=== PATIENT | female | born 1960 | race Two or more races ===

== ENCOUNTER 2020-09-12 14:41 | Outpatient (REF) | payer OTHER, SELFPAY | END 2020-09-12 14:42 | disposition home or self-care (01) | LOC: HO.LAB 14:41 | PROVIDERS: PCP Family Medicine; Visit Provider Internal Medicine | DX: Z20.828 Contact with and (suspected) exposure to other viral communicable diseases (principal) | CPT/HCPCS: C9803; U0003 ==

== ENCOUNTER 2021-08-07 13:37 | Emergency (ER) | payer OTHER, SELFPAY ==
--- NOTE | ~2021-08-07 | CT_ITS ---
EXAMINATION: CT LUMBAR SPINE WITHOUT CONTRAST CLINICAL INFORMATION: Acute on chronic back pain. COMPARISON: No relevant prior imaging. TECHNIQUE: [employer] Coder images were obtained. CT imaging of the lumbar spine was performed without contrast. Data was reformatted into multiplanar images at the acquisition workstation. This CT examination was performed using dose optimization techniques as appropriate, variously including the following: *Automated exposure control *Adjustment of mA and/or kV according to patient size (this includes techniques or standardized protocols for targeted exams where dose is matched to indication/reason for exam; i.e. extremities or head) *Use of iterative reconstruction technique DLP; 1042 mGy-cm FINDINGS: Alignment is normal. Vertebral heights are preserved. Intervertebral disc spaces are maintained. Canal patency is not well assessed on this examination due to inherent limitations of CT without intrathecal contrast. There is relatively advanced degenerative arthrosis of the facet joints at L5-S1 and to a lesser degree at L4-L5. Disc osteophyte spurring in conjunction with facet degenerative change at L5-S1 causes at least mild mass effect on the right L5 foraminal nerve root. Limited visualization of the retroperitoneal anatomy reveals a few scattered atheromatous calcification within the abdominal aorta and iliac vessels. Psoas and paraspinal muscle groups are symmetric. CT/CT lumbar spine wo con IMPRESSION: There is relatively advanced degenerative arthrosis of the articular facet joints at L5-S1 which in conjunction with disc osteophyte spurring causes at least mild mass effect on the right L5 foraminal nerve root. Otherwise grossly no evidence of canal or neuroforaminal compromise elsewhere within the lumbar spine. No acute fracture and no spinal subluxation.
--- NOTE | ~2021-08-07 | XR_ITS ---
EXAMINATION: XR KNEE, RIGHT CLINICAL INFORMATION: Worsening right knee pain COMPARISON: None TECHNIQUE: Four views of the right knee. FINDINGS: There is tricompartment osteoarthritis, greatest medial knee joint compartment with secondary genu varus. There are no erosive changes. No definite suprapatellar effusion. There is no destructive process or fracture or dislocation. No destructive process or periostitis. XR/XR knee RT 4V IMPRESSION: Tricompartment osteoarthritis, greatest medial compartment, with secondary genu varus.
[2021-08-07 15:28] VITALS: BP 156/87; PULSE 66; RESP 18; TEMP 36.7; O2SAT 98; BMI 45.7
[2021-08-07] MEDS: Cyclobenzaprine HCl 10 MG TABLET PO (16:45)
[2021-08-07] MEDS: oxyCODONE HCl Immed Release 5 MG TABLET PO (16:45)
--- NOTE | 2021-08-07 16:46 | ED.BACK ---
HPI - Back Pain/Injury General Chief Complaint: Extremity Injury, Lower Stated Complaint: rt leg & back pain Time Seen by Provider: 08/07/21 15:55 Source: patient Mode of arrival: ambulatory Limitations: no limitations History of Present Illness HPI Narrative: 60-year-old female who reports she has a past medical history of chronic back pain that radiates down her left leg for years after she had a fall at work and at that time she developed urinary incontinence and some stool incontinence then had therapy and the stool incontinence resolved although she still has urinary incontinence from that fall years ago presenting to the ED with complaints of acute on chronic back pain over the past few weeks to months where the pain is radiating down her right leg and she usually takes two 500 mg of extra-strength arthritis Tylenol which resolved her pain although over the past few days when she has been taking this medication she is not having any symptomatic relief. Therefore she came here for further evaluation treatment. She reports she knows she has arthritis to the right knee although is unsure if the right knee pain is radiating from the back or if this is from her arthritis. She denies any fevers, chills, dizziness, headaches, neck pain/stiffness, chest pain or shortness of breath, dyspnea on exertion, orthopnea, rashes, saddle anesthesia, bowel retention/incontinence, worsening urinary incontinence, IV drug use, falls, traumas, dysuria, hematuria or any other symptoms complaints or concerns at this time MD elicited complaint: back pain Pertinent past history: prior back pain Onset (ago): month(s) (Worsened past few days) Timing: constant and progressively worsening Severity: severe Pain scale (0-10): 10 Similar Symptoms Previously: Yes Quality: aching Location: lumbar spine Radiation: right leg below the knee Exacerbating factors: movement, supine positioning, sitting upright, walking and lifting Relieving factors: none Context: fall (Her back pain started years ago when she had a work related injury/fall although no recent falls or traumas or injuries that she is aware) Associated symptoms: denies other symptoms Treatments prior to arrival: NSAIDS and acetaminophen Work related injury: No Related Data Previous Rx's Medication Instructions Recorded acetaminophen 500 mg tablet 1,000 mg PO QID PRN #14 tab 08/07/21 (Tylenol Extra Strength) cyclobenzaprine 10 mg tablet 10 mg PO Q8H PRN #14 tab 08/07/21 ibuprofen 800 mg tablet 800 mg PO Q8H PRN #14 tab 08/07/21 oxycodone 5 mg tablet 5 mg PO Q6H PRN #14 tab 08/07/21 prednisone 20 mg tablet 40 mg PO DAILY 5 Days #10 tab 08/07/21 Allergies Allergy/AdvReac Type Severity Reaction Status Date / Time No Known Allergies Allergy Verified 08/07/21 15:33 Review of Systems Review of Systems: Constitutional : No trauma, No Weight loss, No Fever, No Chills, ENT/Mouth : No Hearing loss, No Ear Pain, No Nasal Congestion, No Sinus Pain, No Hoarseness, No sore throat, No Rhinorrhea, No Swallowing Difficulty Cardiovascular : No Chest Pain, No SOB Respiratory : No Cough, No Dyspnea Gastrointestinal : No Nausea, No Vomiting, No Diarrhea, No abdominal Pain, No Hematochezia, No Melena Genitourinary : No Dysuria, No Urinary Frequency, No Hematuria, No Bowel Incontinence/retention, no urinary retention, + chronic urinary incontinence not worse per patient Musculoskeletal : + Back pain, + right knee joint pain, No neck pain, No joint stiffness, No joint swelling Skin : No Skin Lesions, No rash or signs of infection Neuro : No Weakness, No radiation, No Numbness, No Paresthesias, No headache, no loss of bowel or bladder incontinence, no saddle anesthesia, Focal weakness, No radiation Denies history of IV drug usage. Yes all other systems are reviewed and are negative [facility] Past Medical History Attestation statement: The following information was validated with the patient. Social History Social History Advance Directives: No Advance Directives Information Provided: No Physical Exam Vital Signs: Vital Signs: Last Vital Signs Temp 98.0 F 08/07/21 15:28 Pulse 66 08/07/21 15:28 Resp 18 08/07/21 15:28 BP 156/87 H 08/07/21 15:28 Pulse Ox 98 08/07/21 15:28 Body Mass Index 45.7 vital signs have been reviewed as normal and appeared to be correct. Blood pressure hypertensive at 156/87. Heart rate normal. Respiration rate normal. Temperature normal. Oxygen saturation normal. Appearance: Alert. Oriented X3. No acute distress. Head: Normal external exam. Normocephalic. Atraumatic. Eyes: PERRLA. EOMI. Conjunctiva and sclera normal. Eyelids normal. ENT: Pharynx normal. Uvula midline. Moist mucous membranes. Neck: Normal inspection. Neck supple. FROM. No adenopathy. Thyroid Normal. No meningeal signs. No neck mass noted. CVS: Normal heart rate and rhythm. Heart sound normal. No murmurs noted. Pulses normal throughout. Respiratory: No respiratory distress. Painless inspiration. Breath sounds normal. No wheezes/rales/rhonchi noted. Chest nontender. No accessory muscle usage noted or decreased air movement noted. Abdomen: Soft and nontender. Bowel sounds normal in all 4 quadrants. No distention noted. No organomegaly noted. No visible injury noted. Back: No CVA tenderness. Full range of motion noted. No obvious deformities, or edema. Mild para-spinal muscular tenderness from lumbar region to coccyx. Full ROM in back and lower extremities. 5/5 strength hip extension/flexion, abduction, adduction. Mild Lumbar pain with hip flexion against resistance. Straight leg raise test negative on right; Straight leg raise test negative on left; Reflexes normal ankle and knee bilaterally; EHL motor strength normal bilaterally. No rashes/lesion/induration/fluctuance or signs infection noted. Skin: Skin warm and dry. Normal skin color. Normal skin turgor. No rashes/lesions/lacerations noted. Extremities: Patient with tenderness palpation to the right knee diffusely and posteriorly. No obvious ligamentous or tendon injury. No signs of infection or joint effusion. Otherwise all other exhibit normal range of motion and nontender. No lower extremity edema. No calf tenderness is noted. Neuro: Oriented X 3. No motor deficit. No sensory deficit. Reflexes normal. Patient has a normal steady gait. Course Course Course Narrative: 16:30pm - Pt c likely muscular pain, but could be herniated disc. Neuro exam shows no deficits. Not c/w AAA/epidural abscess/dissection.No high risk Hx (Incont, fever, immunosupp, recent surgery/LP, coag, signif trauma, wt loss, puls mass, hx/o Ca, TB, or IVDU) to warrant MRI today. Not c/w Pyelo/UTI/kidney stone/spinal fx. Not cauda equina syndrome. Will obtain an x-ray of the right knee and patient requesting for imaging of the back therefore will obtain a lumbar spine and provide symptomatic treatment then re-evaluate. Reevaluation(s) Reevaluation #1: CT scan of lumbar spine revealed chronic changes no acute processes is not consistent with cauda equina. And patient's exam is not consistent with cauda equina. Right knee x-ray revealed arthritis which is chronic no acute processes. Will DC home with symptomatic treatment instructions return if any new or worsening symptoms to follow up with primary care provider. Patient understands agrees with this plan. Time: 17:47 MDM - Back Pain/Injury Medical Records Attestation: I reviewed the patient's medical records. Imaging Data CT scan of lumbar spine without contrast: Attestation: I personally reviewed and interpreted this imaging study as follows: Radiologist's impression: FINDINGS: Alignment is normal. Vertebral heights are preserved. Intervertebral disc spaces are maintained. Canal patency is not well assessed on this examination due to inherent limitations of CT without intrathecal contrast. There is relatively advanced degenerative arthrosis of the facet joints at L5-S1 and to a lesser degree at L4-L5. Disc osteophyte spurring in conjunction with facet degenerative change at L5-S1 causes at least mild mass effect on the right L5 foraminal nerve root. Limited visualization of the retroperitoneal anatomy reveals a few scattered atheromatous calcification within the abdominal aorta and iliac vessels. Psoas and paraspinal muscle groups are symmetric. CT/CT lumbar spine wo con IMPRESSION: There is relatively advanced degenerative arthrosis of the articular facet joints at L5-S1 which in conjunction with disc osteophyte spurring causes at least mild mass effect on the right L5 foraminal nerve root. Otherwise grossly no evidence of canal or neuroforaminal compromise elsewhere within the lumbar spine. No acute fracture and no spinal subluxation.? Right knee x-ray: Attestation: I personally reviewed and interpreted this imaging study as follows: Radiologist's impression: FINDINGS: There is tricompartment osteoarthritis, greatest medial knee joint compartment with secondary genu varus. There are no erosive changes. No definite suprapatellar effusion. There is no destructive process or fracture or dislocation. No destructive process or periostitis.? XR/XR knee RT 4V IMPRESSION: Tricompartment osteoarthritis, greatest medial compartment, with secondary genu varus. Discharge Plan Discharge Clinical Impression: Degenerative arthritis of lumbar spine, Osteoarthritis of right knee, Genu varum of right lower extremity Patient Disposition: Home, Self-Care Instructions: Osteoarthritis (ED), Degenerative Disc Disease (ED), Lower Back Exercises (ED) Additional Instructions: You should call [facility] physicians at [address] [place] [address] at [phone] at [phone] and if they require referral please have your doctor refer you return if any new or worsening symptoms. Prescriptions: New cyclobenzaprine 10 mg tablet 10 mg PO Q8H PRN (Reason: Muscle spasm) Qty: 14 RF: 0 ibuprofen 800 mg tablet 800 mg PO Q8H PRN (Reason: pain) Qty: 14 RF: 0 prednisone 20 mg tablet 40 mg PO DAILY 5 Days Qty: 10 RF: 0 acetaminophen [Tylenol Extra Strength] 500 mg tablet 1,000 mg PO QID PRN (Reason: fever or pain) Qty: 14 RF: 0 oxycodone 5 mg tablet 5 mg PO Q6H PRN (Reason: pain) Qty: 14 RF: 0 Referrals: Kalen Gayle MD [Primary Care Provider] - 2 days Edinson Kahn MD [Physician] - 3 days (Call to make a follow-up appointment within 2-3 weeks) Print Language: Khmer
== END 2021-08-07 18:33 | disposition home or self-care (01) ==
PROVIDERS: Emergency Provider Emergency Medicine; PCP Family Medicine
DX: M47.816 Spondylosis without myelopathy or radiculopathy, lumbar region (principal); M17.5 Other unilateral secondary osteoarthritis of knee; M21.161 Varus deformity, not elsewhere classified, right knee; M54.50 Low back pain, unspecified; Z79.899 Other long term (current) drug therapy
CPT/HCPCS: 72131; 73564; 99284

== ENCOUNTER 2021-08-27 12:24 | Outpatient (REF) | payer OTHER, SELFPAY ==
--- NOTE | ~2021-08-27 | XR_ITS ---
EXAMINATION: XR KNEE AP STANDING CLINICAL INFORMATION: Pain COMPARISON: Right knee x-ray July 2021 TECHNIQUE: AP bilateral standing view of the knees was obtained. FINDINGS: There is bilateral varus angulation and arthritis the medial femoral tibial joints with joint space narrowing and osteophyte formation. XR/XR knee standing BI IMPRESSION: Bilateral there is angulation and medial femoral tibial joint arthritis.
== END 2021-08-27 12:25 | disposition home or self-care (01) ==
LOC: HO.HOSX 12:24
PROVIDERS: Visit Provider Orthopaedic Surgery
DX: M17.0 Bilateral primary osteoarthritis of knee (principal); M54.30 Sciatica, unspecified side
CPT/HCPCS: 73565; 99202

== ENCOUNTER → 2022-03-11 08:33 | Outpatient (BNVA) | payer OTHER, SELFPAY | PROVIDERS: PCP Family Medicine; Visit Provider Physician Assistant | DX: M17.0 Bilateral primary osteoarthritis of knee (principal) | CPT/HCPCS: 99212 ==

== ENCOUNTER 2023-09-19 14:11 | Outpatient (AMB) | payer OTHER, SELFPAY ==
--- NOTE | 2023-09-19 14:14 | A.OFFVIS_ITS ---
Intake Vital Signs 09/19/23 14:33 Height 5 ft 1 in Weight 192 lb BMI 36.3 Intake Visit Reasons: OV-B/L knee pain-follow up Intake Note: Xemix 61 year old female presents today for a follow up of bilateral knee OA. Patient reports ongoing pain, she was sent to bariatrics to help loose weight and underwent a gastric bypass in January of this year. States her right kne pain is located in the posterior aspect and in her left knee pain in lateral aspect of knee. Her pain is worse in the early in the morning, states hears bone on bone. She will have swelling and difficulty with stair use. Find relief with compound cream. Allergies No Known Allergies Allergy (Verified 09/19/23 14:34) HPI OV-B/L knee pain-follow up HPI Details 62-year-old female who [facility]-up of bilateral knee pain. She states she has pain in the posterior aspect of her right knee and lateral aspect of her left knee. Her pain is aggravated at night and in the morning. She also c/o popping of her knee in the morning and swelling. Her pain is worse in the left knee. She also finds difficulty with stair use and she has to hold on to something to prevent knee giving out. She finds relief with compound cream. She was sent to bariatrics to help lose weight and had undergone a gastric bypass surgery in January 2023. [facility] Surgical History Hx of gastric bypass Social History Alcohol intake: never Patient Tobacco Use Status: Never used Tobacco Current occupational status: unemployed Review of Systems Const All systems reviewed & are unremarkable except as noted in HPI and below Physical Exam Vital Signs: BMI result Body Mass Index 36.3 Extrem Other: Bilateral knee: Skin intact, no erythema or joint effusion. Tenderness along the medial and lateral joint line. Full ROM with crepitus. Negative Leslie?s. No ligamentous laxity. NVI. Assessment & Plan Assessment & Plan (1) Bilateral primary osteoarthritis of knee: Code(s): M17.0 - Bilateral primary osteoarthritis of knee Plan She is 8 months s/p gastric bypass surgery and would like to continue with the recovery before proceeding with a TKA. She was fit for a bilateral knee brace today and will proceed with compound cream. She is interested in potentially proceeding with TKA sometime next year therefore, I will have nurse navigate her and begin the process to get this cleared. She is content with this plan and will follow-up accordingly. Patient Instructions: Scribed for Kelvin Decker PA-C, by Antonio Ford medical imaging tech, on 09/19/2023 at 2:45 PM EST. I, Kelvin Decker PA-C, have personally reviewed and agree with the information entered by the scribe. Coding Level of Care Code Est Pt Level 3 (02851) Diagnoses Bilateral primary osteoarthritis of knee M17.0
[2023-09-19 14:33] VITALS: BMI 36.3
== END 2023-09-19 15:03 | disposition home or self-care (01) ==
PROVIDERS: PCP Family Medicine; Visit Provider Physician Assistant
DX: M17.0 Bilateral primary osteoarthritis of knee (principal)
CPT/HCPCS: 99213

== ENCOUNTER → 2023-09-19 14:11 | Outpatient (BNVA) | payer OTHER, SELFPAY | PROVIDERS: PCP Family Medicine; Visit Provider Physician Assistant | DX: M17.0 Bilateral primary osteoarthritis of knee (principal); Z98.84 Bariatric surgery status | CPT/HCPCS: 99212 ==

== ENCOUNTER 2024-02-08 10:15 | Outpatient (REF) | payer OTHER, SELFPAY ==
--- NOTE | ~2024-02-08 | XR_ITS ---
EXAMINATION: XR KNEE, RIGHT CLINICAL INFORMATION: Unilateral primary osteoarthritis. COMPARISON: Right knee radiographs dated 08/07/2021. TECHNIQUE: Lateral and axial views of the right knee are submitted, together with an upright frontal view of the bilateral knees. FINDINGS: There is marked narrowing of the right medial and patellofemoral joint space compartments. The right lateral joint space compartments are well-maintained. There is tricompartment peripheral osteophyte formation. No fracture, dislocation or joint effusion is seen. There is no foreign body. There is marked asymmetric narrowing of the medial joint space compartment of the left knee, with peripheral osteophyte formation. The left lateral joint space compartment is well-maintained. There is a mild to moderate bilateral varus configuration. XR/XR knee RT 3V IMPRESSION: 1. There is marked osteoarthritic change of the medial and patellofemoral joint space compartments of the right knee, and very mild osteoarthritic change is seen of the lateral joint space compartment. 2. There is marked osteoarthritic change of the medial joint space compartment of the left knee, and the lateral joint space compartment is well-maintained. 3. There is a mild to moderate bilateral varus configuration.
== END 2024-02-08 10:16 | disposition home or self-care (01) ==
LOC: HO.HOSX 10:15
PROVIDERS: Visit Provider Physician Assistant
DX: M17.0 Bilateral primary osteoarthritis of knee (principal)
CPT/HCPCS: 73562; 99212

== ENCOUNTER 2024-02-08 12:33 | Outpatient (AMB) | payer OTHER, SELFPAY ==
[2024-02-08 12:40] VITALS: BMI 36.3
--- NOTE | 2024-02-08 12:40 | A.OFFVIS_ITS ---
Vital Signs 02/08/24 12:40 Height 5 ft 1 in Weight 192 lb BMI 36.3 Intake Visit Reasons: OV-B/L knee pain-follow up Intake Note: Tootie a 61 year old female who presents today for a follow up of bilateral knee OA. Patient reports that she receive right of way agent braces and feels they help, however she has weakness in her left knee with removing brace. Her pain radiates up and down her leg and with stair use she feels a pulling sensation. She would like to discuss all details of knee surgery. Allergies No Known Allergies Allergy (Verified 02/08/24 12:57) Medication List - Last Reconciled 02/08/24 by Kelvin Decker PA-C famotidine 40 mg PO DAILY hydroxyzine HCl 25 mg PO TID latanoprost 0.005% drps ophthalmic (eye) lisinopril 10 mg PO DAILY multivitamin with iron-mineral 2 tabs PO DAILY pantoprazole 40 mg PO DAILY sertraline mg PO simethicone mg PO BID ursodiol 300 mg PO BID vitamin A PO HPI HPI OV-B/L knee pain-follow up: Details: 63-year-old female who returns to the office today for a follow-up of bilateral knee pain. She states she has bilateral knee pain which radiates down to her leg. She also experiences a pulling sensation with stair use. She reports she received right of way agent braces which provides her relief however she experiences weakness in her knee with removing the braces. [facility] Surgical History Hx of gastric bypass Social History Alcohol intake: never Patient Tobacco Use Status: Never used Tobacco Current occupational status: unemployed Review of Systems Const All systems reviewed & are unremarkable except as noted in HPI and below Physical Exam Vital Signs: BMI result Body Mass Index 36.3 Extrem Other: Bilateral knee: Skin intact, no erythema or joint effusion. Tenderness along the medial and lateral joint line. Full ROM with crepitus. Negative Leslie?s. No ligamentous laxity. NVI. Results Reviewed Results Reviewed: Xrays were obtained in the office today and personally reviewed by me of bilat knee show end stage oa with varus deformity Assessment & Plan Assessment & Plan (1) Bilateral primary osteoarthritis of knee: Code(s): M17.0 - Bilateral primary osteoarthritis of knee Category: Medical Plan We had a lengthy discussion about the extent of her osteoarthritis and options available which include surgical intervention. She is interested in pursuing Total knee arthroplasty to improve her functional capacity and daily activities. I explained to her the procedure in detail, the hospital stays and details about post op rehab and precautions. She does understand all this and would like to move forward. I did put her in contact with our Nurse Navigator, Rufina, who will set her up with pre op planning and book accordingly. All questions were answered. Orders: Orders XR knee RT 3V Today M17.11 - Unilateral primary osteoarthritis, right knee Patient Instructions: Scribed for Kelvin Decker PA-C, by Antonio Ford medical care manager, on 02/08/2024 at 12:45 PM EST. Kelvin Flood PA-C, have personally reviewed and agree with the information entered by the scribe. Coding Level of Care Code Est Pt Level 3 (84445) Diagnoses Bilateral primary osteoarthritis of knee M17.0
== END 2024-02-08 13:28 | disposition home or self-care (01) ==
PROVIDERS: PCP Family Medicine; Visit Provider Physician Assistant
DX: M17.0 Bilateral primary osteoarthritis of knee (principal)
CPT/HCPCS: 99214

== ENCOUNTER → 2024-07-05 10:08 | Outpatient (BNVA) | payer OTHER, SELFPAY | PROVIDERS: PCP Family Medicine | DX: Z01.818 Encounter for other preprocedural examination (principal) ==

== ENCOUNTER 2024-08-09 08:36 | Outpatient (AMB) | payer OTHER, SELFPAY ==
--- NOTE | 2024-08-09 08:42 | MHC.OFFVIS ---
Vital Signs 08/09/24 09:08 Height 5 ft 1 in Weight 192 lb BMI 36.3 Intake Visit Reasons: L TKA w/NE 08/14/24 Intake Note: Tootie a 63 year old female who presents today for a preoperative visit of left TKA, 08/14/24. Pain management agreement reviewed and signed. Allergies adhesive Adverse Reaction (Severe, Unverified 08/09/24 09:07) Rash/broken skin at site Medication List - Last Reconciled 08/09/24 by Kelvin Decker PA-C famotidine 40 mg PO QPM gabapentin 100 mg PO DAILY PRN hydroxyzine HCl 25 mg PO TID PRN latanoprost 0.005% 1 drp ophthalmic (eye) BEDTIME multivitamin with iron 1 tab PO QAM pantoprazole 40 mg PO QAM sertraline 75 mg PO QAM walker Folding Front wheeled walker HPI Comments Details: Ms Berlin Love presents to the office today for preop visit. She is scheduled for left total knee arthroplasty with Dr. Kahn. She continues to have ongoing pain and difficulty with ambulation in the left knee, which is affecting her quality of life; therefore, she has elected to move forward with surgery. [facility] Medical History (Updated 08/09/24 @ 09:40 by Kelvin Decker PA-C) Type 2 diabetes mellitus Renal cyst Osteoarthritis Depression GERD (gastroesophageal reflux disease) Lumbar radiculopathy Barretts esophagus Surgical History Hx of section Hx of repair of right rotator cuff History of esophagogastroduodenoscopy (EGD) H/O colonoscopy Hx of gastric bypass Social History Are you a primary care center manager to a significant other at home: No Do you presently have visiting nurse or other home services: No Alcohol intake: never Patient Tobacco Use Status: Never used Tobacco Current occupational status: unemployed Review of Systems Const All systems reviewed & are unremarkable except as noted in HPI and below Physical Exam Vital Signs: BMI result Body Mass Index 36.3 Const General: cooperative and no acute distress Orientation/consciousness: patient oriented x3 HEENT Head: Yes normal to inspection, Yes normocephalic and Yes atraumatic Eyes General: appearance normal, both eyes and all related structures Neck Neck: Yes normal visual inspection and Yes no lymphadenopathy Resp Effort & Inspection: normal respiratory effort and able to speak in complete sentences Cardio Rate: regular rate Peripheral pulses: Peripheral pulses 2+ throughout GI Inspection: Yes normal to inspection Palpation (GI): Soft to palpation Skin General skin exam: no rashes or lesions noted Neuro General: patient oriented x3 Extrem Other: Left knee: Skin is intact. She has no wound or abrasion. ROM is 0-95 degrees. Calf supple, nontender. NVI. Psych Appearance: grossly normal Mental Status: mental status grossly normal Results Reviewed Results Reviewed: Xrays were obtained in the office today and personally reviewed by me of the left knee for pre op planning show end stage oa Assessment & Plan Assessment & Plan (1) Osteoarthritis of left knee: Code(s): M17.12 - Unilateral primary osteoarthritis, left knee Category: Medical Qualifiers: Osteoarthritis type: primary Qualified Code(s): M17.12 - Unilateral primary osteoarthritis, left knee Plan: I discussed in detail the procedure and what to expect pre and post operatively. We discussed the risks, benefits and alternatives to the surgery as well as the rehabilitation course. The risks; which include, but are not limited to infection, bleeding, nerve injury, ongoing pain, swelling, and stiffness, perioperative risk of injury to bones and soft tissues, and blood clots. I?ve answered all questions and with their understanding they have consented to move forward with Left total knee arthroplasty with Dr. Kahn Pt order placed Orders: Orders PT Evaluation and Treatment Today Z96.652 - Presence of left artificial knee joint XR knee LT 3V Today M25.562 - Pain in left knee XR knee RT 1V Today M25.561 - Pain in right knee Patient Instructions: Scribed for Kelvin Decker PA-C, by Antonio Ford certified medical technician assistant, on 07/18/2024 at 9:00 AM EST.? I, Kelvin Decker PA-C, have personally reviewed and agree with the information entered by the scribe. Coding Level of Care Code Est Pt Level 3 (06476) Complex EM visit Add On G2211 Diagnoses Primary osteoarthritis of left knee M17.12 Osteoarthritis type: primary
[2024-08-09 09:08] VITALS: BMI 36.3
== END 2024-08-09 09:41 | disposition home or self-care (01) ==
PROVIDERS: PCP Family Medicine; Visit Provider Physician Assistant
DX: M17.12 Unilateral primary osteoarthritis, left knee (principal)
CPT/HCPCS: 99024

== ENCOUNTER 2024-08-09 10:17 | Outpatient (REF) | payer OTHER, SELFPAY | END 2024-08-09 10:18 | disposition home or self-care (01) | LOC: HO.HOSX 10:17 | PROVIDERS: Visit Provider Physician Assistant | DX: M25.562 Pain in left knee (principal); M25.561 Pain in right knee; M17.12 Unilateral primary osteoarthritis, left knee; Z96.652 Presence of left artificial knee joint | CPT/HCPCS: 73560; 73562; 99212 ==

== ENCOUNTER 2024-08-14 09:39 | Inpatient (IN) | payer OTHER, SELFPAY ==
[2024-07-31 12:50] VITALS: BP 133/76; PULSE 53; RESP 20; O2SAT 100; BMI 32.4
--- NOTE | 2024-07-31 13:14 | P.CONAN_ITS ---
Documented by User: Lucinda Morin NP 08/13/24 08:38 HPI - Anesthesia Eval Consult details Narrative: 63yo F for Left Knee Replacement Total, 08/14/24 Severe needle phobia - would like sedation with nerve block and spinal Medically optimized per PCP No recent illness No CP/SOB within limits of knee pain DM2: borderline after gastric bypass, no rx at this time, working on diet GERD: famotadine QPM, ppi QAM PMFSH Active Problems Active Problems: All Active Problems Osteoarthritis of left knee (Acute) Sciatic nerve pain (Acute) BMI 45.0-49.9, adult (Acute) Bilateral primary osteoarthritis of knee (Acute) Past Medical History Medical History (Updated 08/09/24 @ 09:40 by Kelvin Decker PA-C) Type 2 diabetes mellitus Renal cyst Osteoarthritis Depression GERD (gastroesophageal reflux disease) Lumbar radiculopathy Barretts esophagus Family History Family history of problems with anesthesia: No Surgical History Surgical History (Updated 08/14/24 @ 07:48 by Pilar Villeda RN) H/O breast biopsy Hx of section Hx of repair of right rotator cuff History of esophagogastroduodenoscopy (EGD) H/O colonoscopy Hx of gastric bypass History of Problems with Anesthesia: No Social History Social History Are you a primary medicare contact specialist to a significant other at home: No Do you presently have visiting nurse or other home services: No Alcohol intake: never Patient Tobacco Use Status: Never used Tobacco Current occupational status: unemployed Meds Allergies Allergy/AdvReac Type Severity Reaction Status Date / Time adhesive AdvReac Severe Rash/broken Verified 08/14/24 07:44 skin at site Home Medications ?Medication ?Instructions ?Recorded ?Confirmed ?Last Taken ?Type famotidine 40 mg tablet 40 mg PO QPM 09/19/23 08/09/24 08/13/24 History hydroxyzine HCl 25 mg tablet 25 mg PO TID PRN Anxiety 09/19/23 07/31/24 06/14/24 History latanoprost 0.005 % eye drops 1 drp ophthalmic (eye) BEDTIME 09/19/23 08/09/24 08/13/24 History pantoprazole 40 mg tablet,delayed 40 mg PO QAM 09/19/23 08/09/24 08/14/24 History release sertraline 50 mg tablet 75 mg PO QAM 09/19/23 08/09/24 08/14/24 History gabapentin 100 mg capsule 100 mg PO DAILY PRN Pain 07/05/24 07/31/24 06/14/24 History multivitamin with iron 1 tab PO QAM 07/27/24 08/09/24 08/06/24 History Exam Height,Weight and Vital Signs: Height 5 ft 1 in Weight 77.8 kg Last Vital Signs Pulse 53 07/31/24 12:50 Resp 20 07/31/24 12:50 BP 133/76 07/31/24 12:50 Pulse Ox 100 07/31/24 12:50 O2 Del Method Room Air 07/31/24 12:50 Pertinent Lab Results Pertinent Lab Results: CBC and BMP 07/2024 from outside facility WNL Lab Results 07/31/24 07/31/24 Range/Units 13:05 13:50 Nasal Screen MRSA (PCR) NEGATIVE (Negative) Nasal S. aureus Screen POSITIVE A (Negative) Nasal MRSA/S.aureus Interp SEE NOTE Blood Type O Negative Antibody Screen NEGATIVE Narrative Narrative: EKG 07/2024 SB @ 51 Negative precordial T waves Airway Mallampati Class: I TM Dist: >3cm Neck ROM: Limited (after traumatic fall 2016 some soreness, steroid injection) Loose/Missing/Broken Teeth: No (upper permanent bridge) Heart: RRR Lungs: CTAB Assessment and Plan Assessment Anesthesia Assessment: Anesthesia Plan Discussed and PAT Visit Final Anesthetic Review Family History of Problems with Anesthesia: No History of Problems with Anesthesia: No Documented by User: Ludy Kilgore MD 08/14/24 08:35 [facility] Past Medical History Medical History (Updated 08/09/24 @ 09:40 by eKlvin Decker PA-C) Type 2 diabetes mellitus Renal cyst Osteoarthritis Depression GERD (gastroesophageal reflux disease) Lumbar radiculopathy Barretts esophagus Surgical History Surgical History (Updated 08/14/24 @ 07:48 by Pilar Villeda RN) H/O breast biopsy Hx of section Hx of repair of right rotator cuff History of esophagogastroduodenoscopy (EGD) H/O colonoscopy Hx of gastric bypass Social History Social History Are you a primary medicare contact specialist to a significant other at home: No Do you presently have visiting nurse or other home services: No Alcohol intake: never Patient Tobacco Use Status: Never used Tobacco Current occupational status: unemployed Meds Allergies Allergy/AdvReac Type Severity Reaction Status Date / Time adhesive AdvReac Severe Rash/broken Verified 08/14/24 07:44 skin at site Home Medications ?Medication ?Instructions ?Recorded ?Confirmed ?Last Taken ?Type famotidine 40 mg tablet 40 mg PO QPM 09/19/23 08/09/24 08/13/24 History hydroxyzine HCl 25 mg tablet 25 mg PO TID PRN Anxiety 09/19/23 07/31/24 06/14/24 History latanoprost 0.005 % eye drops 1 drp ophthalmic (eye) BEDTIME 09/19/23 08/09/24 08/13/24 History pantoprazole 40 mg tablet,delayed 40 mg PO QAM 09/19/23 08/09/24 08/14/24 History release sertraline 50 mg tablet 75 mg PO QAM 09/19/23 08/09/24 08/14/24 History gabapentin 100 mg capsule 100 mg PO DAILY PRN Pain 07/05/24 07/31/24 06/14/24 History multivitamin with iron 1 tab PO QAM 07/27/24 08/09/24 08/06/24 History Exam Airway Mallampati Class: II (sensitive tooth top right and cap top left) Assessment and Plan Final Anesthetic Review NPO: Yes ASA Class: II Final Preanesthetic Review: No Changes in Pt Med Stat, Meds/Allgs Chart Reviewed and Consent Obtained/Reviewed Patient Risk: Low Procedure Risk: Low Anesthetic Plan Anesthetic Plan: Spinal Disposition: Standard PACU
[2024-07-31 15:17] LABS: MRSA Nasal PCR NEGATIVE (Negative); SA Nasal PCR POSITIVE (Negative)
[2024-08-14] VITALS (11 sets, daily range): BP systolic 91–120; BP diastolic 56–71; PULSE 46–68; RESP 14–18; TEMP 36.1–36.9; O2SAT 94–100
--- NOTE | ~2024-08-14 | XR_ITS ---
EXAMINATION: XR KNEE, LEFT CLINICAL INFORMATION: Left total knee replacement COMPARISON: 08/09/2024 TECHNIQUE: Two views of the left knee. FINDINGS: Left total knee replacement has been performed. Prosthetic components are appropriately positioned with satisfactory alignment. Soft tissue air and surgical skin nesha identified in the immediate postoperative state. XR/XR knee LT 2V IMPRESSION: Status post left total knee replacement. Electronically signed by: Perlita Barger MD 08/14/2024 01:30 PM EDT
[2024-08-14] MEDS: Lactated Ringers 1,000 ML 100 ML IVCONT ×2 (07:49→14:04)
[2024-08-14 08:10] LABS: Hematocrit 41.7 % (37.0-47.0); Hemoglobin 13.6 g/dl (12.0-16.0)
--- NOTE | 2024-08-14 09:24 | MHC.SHP ---
Pre-Procedural Eval Section A - 24 Hr Update-Section A only Date of Service: 08/14/24 The patient is an INPATIENT: No Changes since office visit: No Cold of Flu in the past 2 weeks, No New Medical Problems, No Changes in Medication and No Patient answered all questions The patient has been examined within 24 hours of the surgical procedure. The History & Physical has been completed within 30 days and I have reviewed it.: Yes Section B - Complete if H&P > 30 days Chief Complaint: LT TKA Allergies: Allergies Allergy/AdvReac Type Severity Reaction Status Date / Time adhesive AdvReac Severe Rash/broken Verified 08/14/24 07:44 skin at site Plan I have reviewed the history and physical and performed a pertinent physical examination on my patient. No changes have occurred unless specified. Time Spent With Patient Time: Total time managing care of this patient today ____ minutes.
--- OUTSIDE RECORDS SUMMARY | 2024-08-14 09:41 | XMS_ITS | Continuity of Care Document ---
Author Organization [facility] Address [address] [place] [address]- Care Team Providers Care Power And Recovery Supervisor Name Role Phone Enrique Suh MD, Kalen Primary Care Phys ician Encounter 03/02/22 - 03/09/22 [facility] [address], [address] [place] [address]- Attending Physician: Kalen Gayle MD Admitting Physician: Corrine Sullivan NP Referring Physician: Enrique Suh MD , Kalen Allergies, Adverse Reactions, Alerts No Known Medication Allergies Medications PEG-3350 with Electrolytes (Eqv-NuLYTELY) oral powder for reconstitution See Instructions, as directed, # 1 each, 0 Refills, Maintenance, 02/05/21 13:48:00 EDT, [facility] #[id number], ok to sub for any gallon prep, as directed Start Date: 02/05/21 Status: Ordered Problem List Condition Effective Dates Status Health Status Inform ant Tubular adenoma of colon(Confirmed) 1 02/27/21 Active 1repeat screening colonoscopy in 2023
--- OUTSIDE RECORDS SUMMARY | 2024-08-14 09:41 | XMS_ITS | Continuity of Care Document ---
Author Organization [facility] Address [address] [place] [address]- Care Team Providers Care Purchasing Director Name Role Phone Enrique Suh MD, Kalen Primary Care Phys ician Encounter 09/01/21 - 09/08/21 [facility] [address], [address] [place] [address]- Attending Physician: Kalen Gayle MD Admitting Physician: Enrique Suh MD , Kalen Referring Physician: Kalen Gayle MD Allergies, Adverse Reactions, Alerts No Known Medication Allergies Medications PEG-3350 with Electrolytes (Eqv-NuLYTELY) oral powder for reconstitution See Instructions, as directed, # 1 each, 0 Refills, Maintenance, 02/05/21 13:48:00 EDT, [facility] #[id number], ok to sub for any gallon prep, as directed Start Date: 02/05/21 Status: Ordered Problem List Condition Effective Dates Status Health Status Inform ant Tubular adenoma of colon(Confirmed) 1 02/27/21 Active 1repeat screening colonoscopy in 2023
--- OUTSIDE RECORDS SUMMARY | 2024-08-14 09:41 | XMS_ITS | Continuity of Care Document ---
Author Organization [facility] Address [address] [place] [id number]- Care Team Providers Care Acquisitions Analyst Name Role Phone Enrique Suh MD, Kalen Primary Care Phys ician Encounter [facility] Date(s): 12/21/23 - 01/20/24 [facility] [address] [place] [address] Allergies, Adverse Reactions, Alerts No Known Medication Allergies Medications famotidine 40 mg oral tablet 1 tablet = 40 mg, By Mouth, Daily at bedtime, 0 Refills, Maintenance, 07/18/23 11:35:00 EDT, Partial fill upon patient request if the prescription is for a schedule II opioid drug. Start Date: 07/18/23 Status: Ordered gabapentin 100 mg oral capsule Refills 0, Maintenance, 07/18/23 11:38:00 EDT, Partial fill upon patient request if the prescription is for a schedule II opioid drug. Start Date: 07/18/23 Status: Ordered hydrOXYzine hydrochloride 25 mg oral tablet 0 Refills, Maintenance, 07/18/23 11:35:00 EDT, Partial fill upon patient request if the prescription is for a schedule II opioid drug. Start Date: 07/18/23 Status: Ordered latanoprost 0.005% ophthalmic solution 0 Refills, Maintenance, 07/18/23 11:39:00 EDT, Partial fill upon patient request if the prescription is for a schedule II opioid drug. Start Date: 07/18/23 Status: Ordered lisinopril 5 mg oral tablet 5 mg, 1, tablet, By Mouth, Daily, # 30 tablet, Refills 0, Maintenance, 07/18/23 11:34:00 EDT, Partial fill upon patient request if the prescription is for a schedule II opioid drug. Start Date: 07/18/23 Status: Ordered omeprazole 40 mg oral enteric coated capsule 1 capsule = 40 mg, By Mouth, Daily, # 90 capsule, 2 Refills, Maintenance, 12/21/22 13:57:00 EST, ECC[facility], [id number], Partial fill upon patient request if the prescription is for a schedule II opioid drug., 157.2, cm, 12/21/22 13:22:00 EST,... Start Date: 12/21/22 Status: Ordered pantoprazole 40 mg oral delayed release tablet 1 tablet = 40 mg, By Mouth, 2 times a day, # 60 tablet, 0 Refills, Maintenance, 07/18/23 11:34:00 EDT, CR Tablet Start Date: 07/18/23 Status: Ordered PEG-3350 with Electrolytes (Eqv-NuLYTELY) oral powder for reconstitution See Instructions, as directed, # 1 each, 0 Refills, Maintenance, 02/05/21 13:48:00 EDT, [id number], ok to sub for any gallon prep, as directed Start Date: 02/05/21 Status: Ordered sertraline 50 mg oral tablet 0 Refills, Maintenance, 07/18/23 11:36:00 EDT, Partial fill upon patient request if the prescription is for a schedule II opioid drug. Start Date: 07/18/23 Status: Ordered ursodiol 300 mg oral capsule 300 mg, 1, capsule, By Mouth, 2 times a day, # 60 capsule, Refills 0, Maintenance, 07/18/23 11:37:00 EDT, Partial fill upon patient request if the prescription is for a schedule II opioid drug. Start Date: 07/18/23 Status: Ordered Problem List Condition Confirmation Course Effective Dates Status Health St atus Informant Obese class II Confirmed Active Tubular adenoma of colon 1 Confirmed 02/27/21 Active 1repeat screening colonoscopy in 2023 Social History Social History Type Response Smoking Status Never (less than 100 in lifetime) entered on: 07/18/23 Sex Patient Care team information Care Team Personnel Name: Enrique Suh MD , Kalen Position: S Outreach Member Role: PCP Address: Address: [address] [place] [address]- Care Team Related Persons Name: SKYLAR SEGOVIA
--- OUTSIDE RECORDS SUMMARY | 2024-08-14 09:41 | XMS_ITS | Continuity of Care Document ---
Author Organization [facility] Address [address] [place] [address]- Care Team Providers Care Project Management Professor Name Role Phone Enrique Suh MD, [facility] Primary Care Phys ician [place] [facility] [place]s): 02/05/21 - 03/07/21 [facility] [address] [place], [place] [address] Attending Physician: Jeannie Escobar Admitting Physician: Jeannie Escobar Referring Physician: Admtr, ArJose Guadalupe Allergies, Adverse Reactions, Alerts No Known Medication Allergies Medications PEG-3350 with Electrolytes (Eqv-NuLYTELY) oral powder for reconstitution See Instructions, as directed, # 1 each, 0 Refills, Maintenance, 02/05/21 13:48:00 EDT, [facility] #[id number], ok to sub for any gallon prep, as directed Start Date: 02/05/21 Status: Ordered Problem List Condition Effective Dates Status Health Status Inform ant Tubular adenoma of colon(Confirmed) 1 02/27/21 Active 1repeat screening colonoscopy in 2023
--- OUTSIDE RECORDS SUMMARY | 2024-08-14 09:41 | XMS_ITS | Continuity of Care Document ---
Author Organization [facility] Address [address] [place] [address]- Care Team Providers Care Certified Nursing Assistant Name Role Phone Enrique Suh MD, Kalen Primary Care Phys ician Encounter 03/05/24 - 03/12/24 [facility] [address], [address] [place] [address]- Attending Physician: Kalen Gayle MD Admitting Physician: Kalen Gayle MD Referring Physician: Kalen Gayle MD Allergies, Adverse [...] capsule, 2 Refills, Maintenance, 12/21/22 13:57:00 EST, ECCapsletty, [id number], Partial fill upon patient request if the [...] each, 0 Refills, Maintenance, 02/05/21 13:48:00 EDT, [facility] #[id number], ok to sub for any gallon prep, [...] 02/27/21 Active 1repeat screening colonoscopy in 2023 Results Radiology Reports * Exam Date Time Procedure Performing Provider Status 03/05/24 8:29 AM [facility] Digital Mammo Screening Janelle Saenz; Auth (Verified) Notes: (MM Digital Mammo Screening) Reason For Exam: Z12.31 SCREENING RESULT: MM Digital Mammo Screening PROCEDURE: MM Digital Mammo Screening INDICATION: Screening for breast cancer. No known palpable abnormalities. COMPARISON: Prior mammograms most recently dated 03/03/2023. TECHNIQUE: Full-field digital CC and MLO 3D tomosynthesis images of both breasts were acquired. Computer-aided detection (CAD) was utilized in the interpretation of this study. DENSITY: There are scattered areas of fibroglandular density. FINDINGS: No suspicious masses, suspicious microcalcifications, or areas of architectural distortion are seen in either breast to suggest malignancy. IMPRESSION: No mammographic evidence of malignancy. RECOMMENDATION: Annual mammographic screening BI-RADS: 1 (Negative) Lay letter mailed to patient WSN: [id number] Ordering Physician: Kalen Gayle MD Dictated By: Batsheva Edwards MD Dictated Date/Time: 03/05/24 8:44 am Reviewed By: Batsheva Edwarsd MD Signed By: Batsheva Edwards MD Signed Date/Time: 03/05/24 8:44 am Transcribed By: ALEXA Pepper Cutter Date/Time: 03/05/24 8:34 am Birads: Social History Social History Type Response Smoking Status Never (less than 100 in lifetime) entered on: 07/18/23 Sex Patient Care team information Care Team Personnel Name: Kalen Gayle MD Position: [facility] Outreach Member Role: PCP Address: Address: [address] [place] [id number] Care Team Related Persons Name: SKYLAR SEGOVIA
--- OUTSIDE RECORDS SUMMARY | 2024-08-14 09:41 | XMS_ITS | Continuity of Care Document ---
Author Organization [facility] Address [address] [place] [address]- Care Team Providers Care Blow Torch Burner Name Role Phone Enrique Suh MD, Kalen Primary Care Phys ician Encounter 03/03/23 - 03/10/23 [facility] [address], [address] [place] [address]- Attending Physician: Kalen Gayle MD Admitting Physician: Kalen Gayle MD Referring Physician: Enrique Suh MD , Kalen Allergies, Adverse Reactions, Alerts No Known Medication Allergies Medications omeprazole 40 mg oral enteric coated capsule 1 capsule = 40 mg, By Mouth, Daily, # 90 capsule, 2 Refills, Maintenance, 12/21/22 13:57:00 EST, ECCapsule, [id number], Partial fill upon patient request if the prescription is for a schedule II opioid drug., 157.2, cm, 12/21/22 13:22:00 EST,... Start Date: 12/21/22 Status: Ordered PEG-3350 with Electrolytes (Eqv-NuLYTELY) oral powder for reconstitution See Instructions, as directed, # 1 each, 0 Refills, Maintenance, 02/05/21 13:48:00 EDT, [id number], ok to sub for any gallon prep, as directed Start Date: 02/05/21 Status: Ordered Problem List Condition Confirmation Course Effective Dates Status Health St atus Informant Severe obesity Confirmed Active Tubular adenoma of colon 1 Confirmed 02/27/21 Active 1repeat screening colonoscopy in 2023 Results Radiology Reports * Exam Date Time Procedure Performing Provider Status 03/03/23 11:19 AM MM Digital Mammo Screening Penny Pastor; Auth (Verified) Notes: (MM Digital Mammo Screening) Reason For Exam: routine screening RESULT: MM Digital Mammo Screening PROCEDURE: MM Digital Mammo Screening INDICATION: Screening for breast cancer. No known palpable abnormalities. Patient reports benign left stereotactic core biopsy in 2019. COMPARISON: [facility] 03/02/2022 and [facility] dating back to 11/26/2019. TECHNIQUE: Full-field digital CC and MLO 3D tomosynthesis images of both breasts were acquired. Computer-aided detection (CAD) was utilized in the interpretation of this study. DENSITY: The breast tissue contains scattered areas of fibroglandular density. FINDINGS: No suspicious masses, suspicious microcalcifications, or areas of architectural distortion are seen in either breast to suggest malignancy. Stable benign-appearing asymmetries lateral left breast, anterior third, the more posterior of which was shown on ultrasound to represent a cyst in 2020. IMPRESSION: No mammographic evidence of malignancy. RECOMMENDATION: Annual mammographic screening BI-RADS: 2 (Benign) Lay letter mailed to patient WSN: [id number] Ordering Physician: Enrique Suh MD [facility] Dictated By: Adamaris Shearer MD, I Dictated Date/Time: 03/03/23 12:09 pm Reviewed By: Adamaris Shearer MD, I Signed By: Adamaris Shearer MD, I Signed Date/Time: 03/03/23 12:09 pm Transcribed By: ALEXA Plow And Boring Machine Tender Date/Time: 03/03/23 11:57 am Birads: MG Breast Screening * [facility]SPowerscribe , CIS S: TRANSCRIBE Adamaris Shearer MD I: VERIFY Event Display: Result: Authored Date: [id number] PROCEDURE: MM Digital Mammo Screening INDICATION: Screening for breast cancer. No known palpable abnormalities. Patient reports benign left stereotactic core biopsy in 2019. COMPARISON: [facility] 03/02/2022 and [facility] dating back to 11/26/2019. TECHNIQUE: Full-field digital CC and MLO 3D tomosynthesis images of both breasts were acquired. Computer-aided detection (CAD) was utilized in the interpretation of this study. DENSITY: The breast tissue contains scattered areas of fibroglandular density. FINDINGS: No suspicious masses, suspicious microcalcifications, or areas of architectural distortion are seen in either breast to suggest malignancy. Stable benign-appearing asymmetries lateral left breast, anterior third, the more posterior of which was shown on ultrasound to represent a cyst in 2020. IMPRESSION: No mammographic evidence of malignancy. RECOMMENDATION: Annual mammographic screening BI-RADS: 2 (Benign) Lay letter mailed to patient WSN: [id number] Ordering Physician: Kalen Gayle MD Dictated By: Adamaris Shearer MD, I Dictated Date/Time: 03/03/23 12:09 pm Reviewed By: Adamaris Shearer MD, I Signed By: Adamaris Shearer MD, I Signed Date/Time: 03/03/23 12:09 pm Transcribed By: ALEXA Plow And Boring Machine Tender Date/Time: 03/03/23 11:57 am Birads: Patient Care team information Care Team Personnel Name: Kalen Gayle MD Position: [facility] Outreach Member Role: PCP Address: Address: [address] [place] [id number] Care Team Related Persons Name: SKYLAR SEGOVIA
--- OUTSIDE RECORDS SUMMARY | 2024-08-14 09:41 | XMS_ITS | Continuity of Care Document ---
Author Organization [facility] Address [address] [place] [id number]- Care Team Providers Care Behavioral Sciences Department Chair Name Role Phone Enrique Suh MD, [facility] Primary Care Phys [facility] [place] [facility] [place](s[place] 07/18/23 - 08/17/23 [facility] [address] [place] [id number]- Attending Physician: Jeannie Escobar Admitting Physician: Jeannie Escobar Referring Physician: AdmtrJeannie Allergies, Adverse Reactions, Alerts No Known Medication [...] each, 0 Refills, Maintenance, 02/05/21 13:48:00 EDT, [id number], ok to sub for any gallon prep, [...] Name: Enrique Suh MD , Kalen Position: [facility] Outreach Member Role: PCP Address: Address: [address] [place] [address]- Care Team Related Persons Name: SKYLAR SEGOVIA
--- OUTSIDE RECORDS SUMMARY | 2024-08-14 09:41 | XMS_ITS | Continuity of Care Document ---
Author Organization [facility] ter Address [address] [place] [id number]- Care Team Providers Care Receptionist Name Role Phone Enrique Suh MD, Kalen Primary Care Phys [facility] [place] [facility] [place] 07/12/[address] [address] Discharge Disposition: A-D/C Home Attending Physician: Chai Young MD Admitting Physician: Chai Young MD Referring Physician: Chai Young MD Allergies, Adverse Reactions, Alerts No Known [...] 2 Refills, Maintenance, 12/21/22 13:57:00 EST, [facility]ule, [facility]/pharmacy #[id number], Partial fill upon patient request [...] Date: 07/18/23 Status: Ordered PEG-3350 with Electrolytes (Eqv-GoLYTELY) oral powder for reconstitution See Instructions, 1 glass every 15-30 minutes until finished, # 4,000 mL, 0 Refills, Maintenance, 05/09/24 11:43:00 EDT, [facility] #[id number], Partial fill upon patient request if the prescription is for a schedule II opioid drug., 1 glass ever... Start Date: 05/09/24 Status: Ordered PEG-3350 with Electrolytes (Eqv-NuLYTELY) oral powder for reconstitution See Instructions, as directed, # 1 each, 0 Refills, Maintenance, 02/05/21 13:48:00 EDT, [facility] #[id number], ok to sub for any gallon prep, [...] 02/27/21 Active 1repeat screening colonoscopy in 2023 Vital Signs Most recent to oldest [Reference Range]: 1 2 3 Height 154 cm (07/12/24 6:51 AM) Oxygen Saturation [94-100 %] 100 % (07/12/24 8:11 AM) 100 % (07/12/24 8:07 AM) 100 % (07/12/24 7:56 AM) Pulse Rate [55-90 bpm] 61 bpm (07/12/24 6:51 AM) Blood Pressure [90-138/55-84 mm Hg] 114/75mm Hg (07/12/24 8:11 AM) 116/78mm Hg (07/12/24 8:07 AM) 102/71mm Hg (07/12/24 7:56 AM) Respiratory Rate [16-30 br/min] 16 br/min (07/12/24 8:11 AM) 19 br/min (07/12/24 8:07 AM) 17 br/min (07/12/24 7:56 AM) Temperature [96.8-100.4 DegF] 97.3 DegF (07/12/24 7:56 AM) 97.6 DegF (07/12/24 6:51 AM) Liters per Minute 6 L/min (07/12/24 7:56 AM) Mode of Delivery (Oxygen) Room air (07/12/24 8:11 AM) Room air (07/12/24 8:07 AM) Simple face mask (07/12/24 7:56 AM) Blood pressure sites Arm, left (07/12/24 8:11 AM) Arm, left (07/12/24 8:07 AM) Arm, left (07/12/24 7:56 AM) Temperature Route Temporal (07/12/24 7:56 AM) Temporal (07/12/24 6:51 AM) Dry Weight 77.5 kg (07/12/24 6:51 AM) Social History Social History Type Response Smoking Status Never (less than 100 in lifetime) entered on: 07/18/23 Sex Note * Fanny NUNEZ, Gerard Youngblood: PERFORM Event Display: Discharge/Transfer Note Hospital Authored Date: [id number] Nursing Discharge Note Entered On: 07/12/2024 8:03 EDT Performed On: 07/12/2024 8:03 EDT by Gerard Escobedo RN Nursing Discharge Note 2 Discharge Time : 07/12/2024 8:49 EDT Gerard Escobedo RN - 07/12/2024 9:02 EDT Discharge Level of Care at Discharge : Home/Fci/Foster Care Patient Left Unit Via : Wheelchair Patient Accompanied Off Unit with : Responsible adult DC Instructions Provided & Signed by Pt : Yes Patient Understands D/C Instructions : Yes Patient Instructions Discharge Signed : Yes Did Pt have Specialty Bed or Wound Vac : No Gerard Escobedo RN - 07/12/2024 8:03 EDT * Gerard Escobedo RN: PERFORM Event Display: Patient Education/Instruction Authored Date: [id number] Surgery Adult Discharge Instructions [place] [id number] Name: MELISSA WILCOX : 1960?? Visit: 07/12/2024 06:28?? Current Date: 07/12/2024 08:04 ?? Account: [id number]?? Surgery Discharge Instructions We would like to thank you for allowing us to assist you with your healthcare needs. The following includes patient education materials and information regarding your injury/illness. Our entire staffstrives to provide an excellent experience for our patients and their families. PLEASE ENSURE YOU FOLLOW-UP PER THE INSTRUCTIONS BELOW! ?? YOUR OPINION IS IMPORTANT TO US! Please complete the survey you may receive by mail or email. Your feedback will be used to make improvements to the healthcare experiences of our patients and their families. Surveys are administered by [employer] ?? If further treatment with your primary care physician or another doctor is recommended, it is important for you to keep the appointment. Call your primary care physician or return to the Emergency Department immediately if your condition worsens, fails to improve, or new symptoms develop. If you need to find a doctor, you can call [facility] for a referral at [phone] or toll free at [phone] or log in to [email or web address].. ?? [facility], in keeping with [facility] guidance, no longer requires face masks for staff, patientsor visitors in most situations. Similiar to time spent indoors at other locations, there is the chance that you were exposed to repiratory viruses during your time with us (such as flu or COVID-19). If you develop symptoms concerning for a viral respiratory infection, please seek testing (and treatment if indicated) from your medical provider or home test kit. ?? You can view and manage your care through the patient portal or by using a health care mario of your choosing. [employer] is a website that allows you to securely view your medical information including your hospital discharge summary, office visit summaries, medications and follow-up visits. You can also request appointments, renew medications, and request access to your medical information using a health care mario of your choosing, or just ask a question. You are entitled to know the individuals who participated in your treatment. This information is available within your medical record and will be provided upon your request. You can enroll at [email or web address] or register d uring your next office visit. You have been discharged from [facility], Patient Care Unit: ENDO??. If you have any questions regarding these instructions after you leave, please call us and we will be happy to assist you. [facility] Your Care Team Attending Physician Chai Young MD?? Discharging Providers Chai Young MD Reason for Admission SCREENING, HIGH RISK, HISTORY OF POLYPS Primary Care Provider Kalen Gayle MD? Advance Directive Health Care Proxy on File No Patient refuses to discuss What to do next Instructions From Your Doctor ?? Orders?? Daystay Protocol, ??07/12/24 7:54:00 EDT?? Scheduled Follow-Up Appointments Tuesday 12:30 PM EDT ?? With: Neil Craig Where: [facility] [address] [place] [address]- Status: Pending You Need to Schedule the Following Appointments Follow Up with??Kalen Suh MD When:??In 0 days Where: [address] [place] [address]- Business (1) Discharge Medications MELISSA OBREGON :1960 Visit Date:07/12/2024 Medications: Please continue your medications until treatment is completed or stopped by your provider. You may resume your daily prescription medications. Discuss any questions related to medications with your provider. What How Much When Instructions Next Dose Unchanged Famotidine (famotidine 40 mg oral tablet) 1 tab(s) Oral Daily at Bedtime Unchanged Gabapentin (gabapentin 100 mg oral capsule) Unchanged HydrOXYzine (hydrOXYzine hydrochloride 25 mg oral tablet) Unchanged Latanoprost Ophthalmic (latanoprost 0.005% ophthalmic solution) Unchanged Lisinopril (lisinopril 5 mg oral tablet) 1 tab(s) Oral Daily Unchanged Omeprazole (omeprazole 40 mg oral enteric coated capsule) 1 capsule Oral Daily Unchanged Pantoprazole (pantoprazole 40 mg oral delayed release tablet) 1 tab(s) Oral Twice a day Unchanged PEG Electrolyte Solution (PEG-3350 with Electrolytes (Eqv-GoLYTELY) oral powder for reconstitution) See instructions 1 glass every 15-30 minutes until finished ?? Unchanged PEG Electrolyte Solution (PEG-3350 with Electrolytes (Eqv-NuLYTELY) oral powder for reconstitution) See instructions as directed ?? Unchanged Sertraline (sertraline 50 mg oral tablet) Unchanged Ursodiol (ursodiol 300 mg oral capsule) 1 capsule Oral Twice a day Allergies (NKA means No Known Allergies) No Known Medication Allergies Education Materials Below is the list of Educational Leaflet Providered with your Discharge Instructions. [employer] Patient Education - Surgery Medical Daystay Surgical Overnight Discharge Instructions?? [employer] Patient Education - Hemorrhoids Discharge Instructions?? [employer] Patient Education - Colon Polypectomy Discharge Instructions?? Valuables and Belongings I fully understand and agree that [facility] accepts no responsibility for all my personal property including clothing, toilet articles, radios, jewelry, dentures, hearing aids, rings, money, or any other property that is in my possession or is brought to me after admission. I understand certain valuables may be placed in a hospital safe for a short period of time. I understand that the hospital is not liable for loss or damage due to accident, fire, or other natural occurrence while said property is in the safe. I accept full responsibility for any personal property that I keep with me, and will not hold the hospital responsible in case of loss or disappearance. I acknowledge that i have been encouraged to send valuables and belongings home. ?? Date for Pt to Sign Valuables/Belongings: 07/12/24 06:51:00 ?? Valuables & Belongings ?? Clothes Electronic devices Jewelry Monetary Items Personal devices Miscellaneous Medications (Valuables) Valuables at Bedside Pants, Shirt, Shoes, Undergarments ? Other: backpack ? Valuables Sent Home ? Valuables Sent to Security ? Valuables Sent to Locker ? Other Discharge Information ? Case Management Discharge Plan?? Discharge Plan?? Discharge Level of Care at Discharge: Home/Fci/Foster Care ?? Pulmonary Rehab Status?? Pulmonary Rehab Discharge Status?? Respiratory Rate: 17 br/min ? Common Emergency Awareness Tips IS IT A STROKE? Act FAST and Check for these signs: FACE Does the face look uneven? ARM Does one arm drift down? SPEECH Does their speech sound strange? TIME Call at any sign of stroke ?? Heart Attack Signs Chest discomfort: Most heart attacks involve discomfort in the center of the chest and lasts more than a few minutes, or goes away and comes back. It can feel like uncomfortable pressure, squeezing, fullness or pain. Discomfort in upper body: Symptoms can include pain or discomfort in one or both arms, back, neck, jaw or stomach. Shortness of breath: With or without discomfort. Other signs: Breaking out in a cold sweat, nausea, or lightheaded. Remember, MINUTES DO MATTER. If you experience any of these heart attack warning signs, call to get immediate medical attention! ?? Smoking can increase your chances of developing chronic health problems and can cause harmful effects to other family members in your house. If you smoke, you are strongly encouraged to quit. Please call [facility] at [phone] or [phone] ([phone]) or log in to [email or web address] for referrals to smoking cessation programs. ?? The National Suicide Prevention Hotline is available 09/05 if you or someone you know needs to find a reason to keep living. By calling 3-151-801-Baton (6760) you'll be connected to a skilled, trained counselor at a crisis center in your area. SURGERY DISCHARGE INSTRUCTIONS SIGNATURE PAGE MELISSA OBREGON Location:[facility] Registration Date and Time:07/12/2024 06:28 EDT Primary Care Physician: Enrique Suh MD , Kalen, Attending Physician: Hannah ABRAMS, Chai Angulo, I MELISSA OBREGON, have received the above patient education materials/instructions and have verbalized understanding. If ambulance or transport services are being used I further acknowledge being given a choice of service. ?? If you need to contact me, please call me at this number: . Patient/Compliance Clerk Name: Patient/Compliance Clerk Signature: Relationship to Patient: Witness Name/Signature: Date: * Gerard Escobedo RN: PERFORM, SIGN, VERIFY Event Display: Patient Education Handout Authored Date: * Gerard Escobedo RN: PERFORM Event Display: Patient Education Leaflets Authored Date: Surgery Medical Daystay Surgical Overnight Discharge Instructions ?? 295 Medical Daystay/Surgical Overnight Discharge Instructions ? Since your coordination and judgment may be altered by medication and/or anesthesia, a responsible adult must drive you home from the hospital. ? If you have received medication for pain or sedation while under our care, you should not drive, operate machinery, drink alcohol, or sign any legal documents for 24 hours.?? You should have someone with you at home tonight. ? Remain at home the day of discharge.?? You may be up and about unless otherwise instructed by your physician. ? You may resume your daily prescription medication schedule.?? Any depressant medication should be avoided for 24 hours unless otherwise instructed by your surgeon or anesthesiologist. ? Call your physician for a follow-up appointment.? If you experience unusual or severe pain not relied by your pain medication, excessive bleedingor drainage, persistent nausea and vomiting, excessive swelling or redness, foul odor from incisionsite or fever over 100.6F, you need to call your physician. ? A follow-up phone call by a nurse will be made the day after your procedure.?? If you have stayed with us over night, you will not be receiving a follow-up phone call. ? Nausea and vomiting are a common side effect of prescription pain medication.?? We recommend that pills are not taken on an empty stomach.?? While taking any prescription pain medication you should not drive or drink alcohol. ? * Fanny NUNEZ, Gerard Youngblood: PERFORM Event Display: Patient Education Leaflets Authored Date: [id number] Hemorrhoids Discharge Instructions ?Hemorrhoids Discharge Instructions ??You must carefully read the Consumer Information Use and Disclaimer below in order to understand and correctly use this information?? About this topic Hemorrhoids are swollen veins in the rectum. Your rectum is where stool leaves your body. You may be able to see or feel your hemorrhoids outside of your body, but some hemorrhoids are inside of yourrectum and cannot be seen. Hemorrhoids can cause itching, pain, and bleeding. Being constipated or having hard stools can make your hemorrhoids worse.?? What care is needed at home? Ask your doctor what you need to do when you go home. Make sure??you ask questions if you do not understand what the doctor says. This??way you will know what you need to do. ??? Soak your bottomin a few inches of warm water for 10 to 15 minutes??at a time. You can do this 2 to 3 times each day. Do not add soap,??bubble bath, or anything to the water. ??? Use yris-lof-gveuazo medicines to treat your hemorrhoids. These??include ointments and creams to help with pain and swelling. You can??also use a product like witch bhupendra to help dry out the skin in the area. ??? To help with constipation: ??? Use stool softeners when needed. ??? Eat high-fiber foods. These include whole grains, fruits, and??vegetables. ??? Drink plenty of water and other fluids each day. This helps to??keep your stools soft. ??? Set a regular schedule to try and have a bowel movement. Do??not ignore the urge to go to the bathroom. Don???t hold it in. ??? Give yourself plenty of time to have a bowel movement, but do not linger on the toilet either, by sitting and reading for a long time. ??? Do mild exercise each day like taking a walk. ??? Avoid heavy lifting or straining while the hemorrhoid is healing. ?? What follow-up care is needed? If your problem does not get better, other care may be needed. Your doctor may ask you to make visits to the office to check on your progress. Be sure to keep these visits.?? What drugs may be needed? The doctor may order drugs to: ??? Help with pain and swelling ??? Ease itching ??? Soften stools ?? Will physical activity be limited? Working out can help with digestion. It might help keep you from having hard stools. Ask your doctor about the best kind of exercise for you. ?? What problems could happen? You may have very bad bleeding. ??? Sometimes, treatments do not work. Some hemorrhoids are very??large. You might need surgery for either of these. ?? When do I need to call the doctor? You have a lot of bleeding from your rectum. ??? Your bowel movement looks like tar. ??? You are not able to pass stool because of pain from your??hemorrhoids. ??? Your pain gets worse and is nothelped by joby-dmb-neqrmee??medicines, warm water, or your home care. ??? You have a fever of 100.4??F (38??C) or higher. ?? Teach Back: Helping You Understand The Teach Back Method helps you understand the information we are giving you. After you talk with the staff, tell them in your own words what you learned. This helps to make sure the staff has described each thing clearly. It also helps to explain things that may have been confusing. Before going home, make sure you can do these: ??? I can tell you about my condition. ??? I can tell you what may help ease my pain. ??? I can tell you what I will do if I have blood in my rectum. Where can I learn more?[employer]https://familydoctor.or g/condition/hemorrhoids/National Digestive Disease Information Clearinghousehttps://www.niddk.nih.go v/health-information/digestive-diseases/hemorrhoids/definition-factsLast Reviewed Fiyg7382-68-58Bjpjraob Information Use and Disclaimer:This generalized information is a limited summary of diagnosis,treatment, and/or medication information. It is not meant to be comprehensive and should be used asa tool to help the user understand and/or assess potential diagnostic and treatment options. It does NOT include all information about conditions, treatments, medications, side effects, or risks thatmay apply to a specific patient. It is not intended to be medical advice or a substitute for the medical advice, diagnosis, or treatment of a health care provider based on the health care provider's examination and assessment of a patient???s specific and unique circumstances. Patients must speak with a health care provider for complete information about their health, medical questions, and treatment options, including any risks or benefits regarding use of medications. This information does not endorse any treatments or medications as safe, effective, or approved for treating a specific patient. [employer] and its affiliates disclaim any warranty or liability relating to this information or the use thereof. The use of this information is governed by the Terms of Use, available at??htt ps://www.[employer]cted Data/en/know/twrjwipm-thernidromrub-qekyzCwro Updated 12/09/21? * Fanny NUNEZ, Gerard Youngblood: PERFORM Event Display: Patient Education Leaflets Authored Date: [id number] Colon Polypectomy Discharge Instructions ?? 682 ?? Colon Polypectomy Discharge Instructions ??You must carefully read the Consumer Information Use and Disclaimer below in order to understand and correctly use this information??About this topicThe colon is also called the large intestine. It is a long, hollow tube at the end of your digestive tract. It absorbs water from solid waste and changes it from liquid to a solid bowel movement.??A colon polyp is a growth of extra tissue that is not normally in your colon. Colon polyps do not often cause any signs. Most colon polyps are not cancer, but some polyps may turn into cancer. The doctor takes the polyps out during a procedure called a colonoscopy and sends them to the lab for a check to make sure there is no cancer.??You may have a colon polyp or multiple polyps removed. The doctor will send them to the lab to see what type they are. If a polyp is very large, it may need to be removed by surgery.??What care is needed at home? Ask your doctor what you need to do when you go home. Make sure??you ask questions if you do not understand what the doctor says. ??? Do not drive for 24 hours after a colonoscopy. ??? Take your drugs as ordered by your doctor. ??? Go back to your normaldiet unless your doctor has told you to make? some changes in your diet. ??? Rest ??What follow-up care is needed? Your doctor may ask you to make visits to the office to check on your??progress. Be sure to keep these visits. ??? Your doctor may suggest you get tested regularly. People with colon??polyps need to have a colonoscopy regularly to check for the growth??of new polyps. ??? Some polyps may not be removed, and more surgery may be needed. ??? The results of the polyp testing will be given to you at one of these??visits. ??What drugs may be needed?The doctor may order drugs to: ??? Prevent hard stools ??? Help with pain ??? Reduce your risk of colon polyps or colon cancer ??Will physical activity be limited?You may feel sleepy after the colonoscopy. Try to get some rest.??What can be done to prevent this health problem? Have regular colonoscopies.? Eat foods high in fiber. ??? Eat foods low in fat. ??? Limit your intake of beer, wine, and mixed drinks (alcohol). ??? Ask your doctor or dietitian for a diet that is right for you. Include??calcium in your diet. Good sources of calcium include milk, cheese,??and yogurt. ??When do I need to call the doctor? Signs of infection. These include a fever of 100.4??F (38??C) or higher,??chills, and anal itching or pain. ??? Bleeding from rectum that gets worse? Belly becomes swollen and sore ??? Upset stomach and throwing up continues after you return home ??? Not being able to move your bowels ??? Weight loss without trying ??? Blood in your stool ??Teach Back: Helping You UnderstandThe Teach Back Method helps you understand the information we are giving you. After you talk with the staff, tell them in your own words what you learned. This helps to make sure the staff has described each thing clearly. It also helps to explain things that mayhave been confusing. Before going home, make sure you can do these:? I can tell you about my co ndition. ??? I can tell you what changes I need to make with my diet. ??? I can tell you what I will do if my stomach is swollen, I have belly pain,??or there is blood in my stool. ??Where can I learn more?BetterHealthhttps://www.betterhealth.hermelinda.gov.au/health/ConditionsAndTreatme nts/colonoscopyNHSh ttps://www.nhs.uk/conditions/bowel-polyps/UpToDatehttps://www.[employer].Connected Data/obdulio nts/szcoy-jljqay-cfvsfq-the-basics??Last Reviewed Nlvi2682-12-06Tcskehbq Information Use and Disclaimer:This generalized information is a limited summary of diagnosis, treatment, and/or medication information. It is notmeant to be comprehensive and should be used as a tool to help the user understand and/or assess potential diagnostic and treatment options. It does NOT include all information about conditions, treatments, medications, side effects, or risks that may apply to a specific patient. It is not intendedto be medical advice or a substitute for the medical advice, diagnosis, or treatment of a health care provider based on the health care provider's examination and assessment of a patient???s specificand unique circumstances. Patients must speak with a health care provider for complete information about their health, medical questions, and treatment options, including any risks or benefits regarding use of medications. This information does not endorse any treatments or medications as safe, effective, or approved for treating a specific patient. [employer]. and its affiliates disclaim any warranty or liability relating to this information or the use thereof. The use of this information is governed by the Terms of Use, available at??https://www.[employer].com/en/know/clinical-effectiveness- termsLast Updated 12/09/21? Patient Care team information Care Team Personnel Name: Enrique Suh MD , Kalen Position: [facility] Outreach Member Role: PCP Address: Address: [address] [place] [address] [facility] Care Team Related Persons Name: SKYLAR SEGOVIA
--- OUTSIDE RECORDS SUMMARY | 2024-08-14 09:41 | XMS_ITS | Continuity of Care Document ---
Author Organization [facility] Address [address] [place] [address]- Care Team Providers Care Seasoner Name Role Phone Not on Staff, PCP Primary Care Physician Unavail able Encounter [facility] Date(s): 07/25/20 - 08/24/[address] [address]-
--- OUTSIDE RECORDS SUMMARY | 2024-08-14 09:41 | XMS_ITS | Continuity of Care Document ---
Author Organization [facility] Address [address] [place] [address]- Care Team Providers Care E Commerce Web Developer Name Role Phone Not on Staff, PCP Primary Care Physician Unavail able Encounter [facility] Date(s): 07/25/20 - 08/24/[address] [address]- Attending Physician: Jeannie Escobar Admitting Physician: Jeannie Escobar Referring Physician: Jeannie Escobar
--- OUTSIDE RECORDS SUMMARY | 2024-08-14 09:41 | XMS_ITS | Continuity of Care Document ---
Author Organization [facility] Address [address] [place] [address]- Care Team Providers Care Tailings Man Name Role Phone Enrique Suh MD, Kalen Primary Care Phys ician Encounter [facility] Date(s): 08/23/22 - 09/22/22 [facility] [address] [place] [id number]- Allergies, Adverse Reactions, Alerts No Known Medication Allergies Medications PEG-3350 with Electrolytes (Eqv-NuLYTELY) oral powder for reconstitution See Instructions, as directed, # 1 each, 0 Refills, Maintenance, 02/05/21 13:48:00 EDT, [id number], ok to sub for any gallon prep, as directed Start Date: 02/05/21 Status: Ordered Problem List Condition Confirmation Course Effective Dates Status Health St atus Informant Tubular adenoma of colon 1 Confirmed 02/27/21 Active 1repeat screening colonoscopy in 2023 Patient Care team information Care Team Personnel Name: Kalen Gayle MD Position: [facility] Outreach Member Role: PCP Address: Address: [address] [place] [address]- Care Team Related Persons Name: SKYLAR SEGOVIA
--- NOTE | 2024-08-14 09:43 | PHA.MEDREC ---
Pharmacy Consult ? Medication Reconciliation Pharmacy has reviewed the medication reconciliation.
--- NOTE | 2024-08-14 11:34 | PM.OP ---
Brief Operative Note Date of Service: 08/14/24 Pre-op diagnosis: Left knee OA Post-op diagnosis: same Procedure: Left TKA Implants: [place] Triathlon Cemented 12/18 with 50mm stem/13ps/29a Surgeon: Edinson Kahn MD Anesthesia: GETA and regional Was an Medical Records Manager used for this Procedure?: Yes Medical Records Manager: Kelvin Decker Estimated blood loss (mL): 200 IV fluids (mL): 1,000 Pathology: other Condition: stable Disposition: PACU
[2024-08-14] MEDS: 0.9 % Sodium Chloride Flush 3 ML SYRINGE IVFLUSH (14:04)
--- NOTE | 2024-08-14 15:35 | W.MHC.F2F ---
Service Date Service Date: 08/14/24 Encounter Date of encounter: 08/15/24 Reasons for Services Signs and symptoms assessed: s/p LTKA Pt. is considered homebound due to recent surgery. Unable to drive, poor balance, poor gait mechanics. Reason for physical therapy: home safety and mobility, therapeutic exercises, restore joint function, gait/transfer training and ADL training Homebound: Leaving the home is medically contraindicated at this time without the asist of a device and/or another person due th the listed conditions above and below. Reason homebound: unsteady gait / fall risk, leg weakness, pain with ambulation, poor balance / fall risk and unable to drive Certification: Based on the above findings, I certify that this patient is confined to the home and needs intermittent longterm care, physical therapy and/or speech therapy, or continues to need occupational therapy. The patient is under my care, and I have initiated the establishment of the plan of care. The patient will be followed by a physician who will periodically review the plan of care. Time Spent With Patient Time: Total time managing care of this patient today ____ minutes.
--- NOTE | 2024-08-14 15:35 | PM.DS ---
DS: Providers Provider Date of Service: 08/16/24 Date of admission: 08/14/24 09:39 Primary care physician: Kalen Suh MD Consults: 08/14/24 13:51 Consult to Hospitalist Routine Comment: Consulting Provider: Hospitalist Reason For Exam: Medical management s/p L TKA DS: Summary Hospital Course Hospital Course: The patient underwent a successful left total knee arthroplasty, they were transferred to PACU and then to the floor to recover. During their stay, their vitals were stable, afebrile at 96.9. Labs were unremarkable, H/H 10.6/32.6. POD 1 they were started on Lovenox for DVT ppx, they also received Physical Therapy services twice a day. Prior to discharge, their dressing was clean dry and intact, and the plan was to be discharged home with VNA services. Time Attestation Discharge Coordination Time (in mins): 30 Quality: Safe Use of Opioids Does Pt have an Active Cancer Diagnosis on the Problem List?: No Quality: Stroke Does the patient have a stroke diagnosis?: No Physical Exam Vital Signs: Vital Signs: Last Vital Signs Temp 98.4 F 08/14/24 15:32 Pulse 68 08/14/24 15:32 Resp 16 08/14/24 15:32 BP 112/57 L 08/14/24 15:32 Pulse Ox 98 08/14/24 15:32 O2 Del Method Room Air 08/14/24 15:32 BMI result Body Mass Index 32.4 Const: General: cooperative, healthy appearing and no acute distress Resp: Effort & Inspection: normal respiratory effort and able to speak in complete sentences Cardio: Rate: regular rate Peripheral pulses: Peripheral pulses 2+ throughout GI: Palpation (GI): Soft to palpation Skin: Lesions: no lesions Rashes: no rashes Extrem: Other: left knee dressing is c/d/i. Able to dorsi/plantar flex. Calf is supple and nontender. Sensation intact. Pedal pulse intact. DS: Data Data Completed and Pending Pending studies at discharge: Pending at discharge 08/14/24 10:49 Surgical [PTH] Routine Labs on day of discharge: Laboratory Results - last 24 hr 08/14/24 07:58 Hgb 13.6 Hct 41.7 Discharge Plan Discharge Anticipated Discharge Date/Time: 08/15/24 11:34 Patient Disposition: Xfer SNF Discharge Diagnosis: s/p LTKA Referrals: Kelvin Decker PA-C [Physician Regional Extension Service Specialist] - 08/30/24 9:15 am Discharge Medications: New celecoxib 200 mg Capsule 200 mg PO BID 30 Days Qty: 60 0RF acetaminophen 325 mg Tablet 650 mg PO Q6H PRN (Reason: Pain, Mild (Pain Scale 1-3), fever or headache) 30 Days Qty: 240 0RF docusate sodium 100 mg Capsule 100 mg PO BID 30 Days Qty: 60 0RF oxycodone 5 mg Tablet 5 mg PO Q4H PRN (Reason: Pain, Moderate(Pain Scale 4-6)) 7 Days Qty: 42 0RF Rx Instructions: Partial Fill upon patient request. enoxaparin 40 mg/0.4 mL Syringe 40 mg subcut Q24H 42 Days Qty: 16.8 0RF Continued (DME) walker Misc See Rx Instructions .MEDSUPPLY Qty: 1 0RF Rx Instructions: Folding Front wheeled walker multivitamin with iron Tablet 1 tab PO QAM gabapentin 100 mg capsule 100 mg PO DAILY PRN (Reason: Pain) pantoprazole 40 mg tablet,delayed release (DR/EC) 40 mg PO QAM famotidine 40 mg tablet 40 mg PO QPM sertraline 50 mg tablet 75 mg PO QAM hydroxyzine HCl 25 mg tablet 25 mg PO TID PRN (Reason: Anxiety) latanoprost 0.005 % drops 1 drp ophthalmic (eye) BEDTIME Discharge Orders: Discharge Order (Routine); Ordered 08/16/24 Ordered By: Paulina Pang Diet: Advance to usual diet Activity on Discharge: Use cane or walker Stand Alone Forms: Patient Portal Discharge page Print Language: Macanese Care Plan Goals: restore fxn to left knee Health Concerns: none Plan of Treatment: Physical Therapy for ROM 0-120, quad strength, gait training. Use walker for ambulation Limit stair climbing, No shower, No tub bath, No driving Continue anticoagulant Lovenox x 6 weeks Keep Aquacel dressing clean, dry and intact. Follow up with orthopedics in 2 weeks Assessment: stable for discharge
[2024-08-14] MEDS: ceFAZolin Sodium/Dextrose,Iso 2 GM/50 ML PIGGYBACK IV (16:15)
[2024-08-14] MEDS: Famotidine 20 MG TABLET 40 MG PO (17:46)
[2024-08-14] MEDS: oxyCODONE HCl Immed Release 5 MG TABLET PO (17:50)
--- NOTE | 2024-08-14 20:51 | P.CONHOSP_ITS ---
History of Present Illness Data of Consult Service Date: 08/14/24 Primary Care Provider: Kalen Suh MD [facility] Reason for consult: Medical management Patient is a 63-year-old female with a PMH significant for HTN no longer on antihypertensives, prediabetes, sciatica, osteoarthritis, GERD, and anxiety who was admitted to the hospital under orthopedic services for left TKA. POD0. Hospitalist consult for medical management. Patient reports only slowly began having feeling returned to her lower extremities bilaterally. Reports unable to move her legs though can wiggle her toes. States right leg feels more swollen than, and reports numbness and tingling in lower extremities. Denies saddle anesthesia, but notes has had urinary incontinence and is currently unable to feel the urge to urinate. Patient otherwise denies chest pain or pressure. No shortness a breath or difficulty breathing. No fever, chills, nausea, vomiting, abdominal pain. Patient has been able to tolerate advancement to her diet. Has not yet been out of bed. Review of Systems 2 Review of Systems: Yes all other systems are reviewed and are negative [facility] Medical History Type 2 diabetes mellitus Renal cyst Osteoarthritis Depression GERD (gastroesophageal reflux disease) Lumbar radiculopathy Barretts esophagus Surgical History H/O breast biopsy Hx of section Hx of repair of right rotator cuff History of esophagogastroduodenoscopy (EGD) H/O colonoscopy Hx of gastric bypass Social History (Reviewed 08/09/24 @ 09:08 by Nicole Guerrero [facility]) Household Members: None Housing: Apartment Are you a primary critical care educator to a significant other at home: No Do you presently have visiting nurse or other home services: No Alcohol intake: never Patient Tobacco Use Status: Never used Tobacco Use of substances other than those prescribed or required for medical reasons: No Currently Displaying Signs/Symptoms of Drug Intoxication Withdrawal: No Have you been hit, kicked, punched, or otherwise hurt by someone within the past year? If so, by whom?: No Do you feel safe in your current relationship?: No Current Relationship Is there a partner from a previous relationship who is making you feel unsafe now?: No Are you made to feel afraid or neglected: No Spiritual Healthcare Practices: none Pentecostalism Healthcare Practices: Yarsanism Cultural Healthcare Practices: none Are you DNR?: No Advance Directives: No (unknown-sister is primary contact) Advance Directives Information Provided: Yes (as above noted) Advance Directives on File: No Do you have a plan to hurt others: No Plan Recently lost weight without trying: No Eating poorly because of decreased appetite: No Nutrition Risks: No Nutritional Risk Patient : No FDLMP: n/a : No Poor oral hygiene: No Current occupational status: unemployed Meds Allergies Allergy/AdvReac Type Severity Reaction Status Date / Time adhesive AdvReac Severe Rash/broken Verified 08/14/24 07:44 skin at site Active Medications: Current Medications Acetaminophen (Acetaminophen 325 Mg Tablet) 650 mg PO Q6H PRN PRN Reason: Pain, Mild (Pain Scale 1-3), fever or headache Celecoxib (Celecoxib 200 Mg Capsule) 200 mg PO BID [facility] Docusate Sodium (Docusate Sodium 100 Mg Capsule) 100 mg PO BID [facility] Enoxaparin Sodium (Enoxaparin Sodium 40 Mg/0.4 Ml Syringe) 40 mg SUBCUT Q24H [facility] Famotidine (Famotidine 20 Mg Tablet) 40 mg PO DAILY@1800 [facility] Last Admin: 08/14/24 17:46 Dose: 40 mg Hydromorphone HCl (Hydromorphone Hcl 0.5 Mg/0.5 Ml Syringe) 0.25 mg IVPUSH Q4H PRN; Protocol PRN Reason: Pain, Severe (Pain Scale 7-10) Hydroxyzine HCl (Hydroxyzine Hcl 25 Mg Tablet) 25 mg PO TID PRN PRN Reason: Anxiety Lactated Ringer's (Lr) 1,000 mls @ 100 mls/hr IVCONT .Q10H [facility] Stop: 08/15/24 12:00 Last Admin: 08/14/24 14:04 Dose: 100 mls/hr Latanoprost (Latanoprost 0.005 % Ophth Jennifer 2.5 Ml Drops) 1 drop EYE-BOTH BEDTIME [facility] Naloxone HCl (Naloxone Hcl 0.4 Mg/Ml Vial) 0.04 mg IVPUSH Q5M PRN PRN Reason: Excessive sedation or RR < 8 Omeprazole (Omeprazole 20 Mg Capsule.Dr) 20 mg PO DAILY@0600 [facility] Ondansetron HCl (Ondansetron Hcl 4 Mg/2 Ml Vial) 4 mg IVPUSH Q8H PRN PRN Reason: Nausea and Vomiting Oxycodone HCl (Oxycodone Hcl Immed Release 5 Mg Tablet) 5 mg PO Q4H PRN PRN Reason: Pain, Moderate(Pain Scale 4-6) Last Admin: 08/14/24 17:50 Dose: 5 mg Oxycodone HCl (Oxycodone Hcl Er 10 Mg Tab.Er.12h) 10 mg PO BID [facility] Sertraline HCl (Sertraline Hcl 25 Mg Tablet) 75 mg PO DAILY [facility] Sodium Chloride (0.9 % Sodium Chloride Flush 3 Ml Syringe) 3 ml IVFLUSH QSHIFT [facility] Last Admin: 08/14/24 14:04 Dose: 3 ml Home Medications ?Medication ?Instructions ?Recorded ?Confirmed ?Last Taken ?Type famotidine 40 mg tablet 40 mg PO QPM 09/19/23 08/09/24 08/13/24 History hydroxyzine HCl 25 mg tablet 25 mg PO TID PRN Anxiety 09/19/23 07/31/24 06/14/24 History latanoprost 0.005 % eye drops 1 drp ophthalmic (eye) BEDTIME 09/19/23 08/09/24 08/13/24 History pantoprazole 40 mg tablet,delayed 40 mg PO QAM 09/19/23 08/09/24 08/14/24 History release sertraline 50 mg tablet 75 mg PO QAM 09/19/23 08/09/24 08/14/24 History gabapentin 100 mg capsule 100 mg PO DAILY PRN Pain 07/05/24 07/31/24 06/14/24 History multivitamin with iron 1 tab PO QAM 07/27/24 08/09/24 08/06/24 History Physical Exam 2 Vital Signs and Narrative: Vital Signs: Last Vital Signs Temp 97.1 F 08/14/24 19:00 Pulse 67 08/14/24 19:00 Resp 17 08/14/24 19:00 BP 100/63 08/14/24 19:00 Pulse Ox 94 08/14/24 19:00 O2 Del Method Room Air 08/14/24 19:00 BMI result Body Mass Index 32.4 General: AOx3, no acute distress Resp: CTA bilaterally CVS: S1, S2, RRR GI: +BS, NT, no distention Skin: Warm, dry Neuro: Cranial nerves II-XII grossly intact bilaterally. Motor grossly intact bilaterally Extremities: No edema. Left knee wrapped in clean dressing. Pt can wiggle toes bilaterally, though otherwise unable to lift or move lower extremeties. Psych: Appropriate affect Results Labs 08/14/24 07:58 Imaging Radiologist's Impressions: Impressions Knee X-Ray 08/14/24 12:30 IMPRESSION: Status post left total knee replacement. Electronically signed by: Perlita Barger MD 08/14/2024 01:30 PM EDT RP Assessment and Plan (1) Status post total left knee replacement: Status: Acute Plan Patient is a 63-year-old female with a PMH significant for HTN no longer on antihypertensives, prediabetes, sciatica, osteoarthritis, GERD, and anxiety who was admitted to the hospital under orthopedic services for left TKA. POD0. Hospitalist consult for medical management. Osteoarthritis of left knee S/P left TKA, POD0 Complains of numbness and tingling in bilateral lower extremities, limited ability to move legs Plan as per orthopedics GERD Continue famotidine, PPI Anxiety Continue sertraline, hydroxyazine Sciatica Continue gabapentin p.r.n. Thank you for allowing us to participate in the care of this patient. Signing off at this time. Please re-consult if any acute complaints or issues arise.
[2024-08-14] MEDS: oxyCODONE HCl ER 10 MG TAB.ER.12H PO (21:19)
[2024-08-14] MEDS: Celecoxib 200 MG CAPSULE PO (21:20)
[2024-08-14] MEDS: Docusate Sodium 100 MG CAPSULE PO (21:21)
[2024-08-14] MEDS: Latanoprost 0.005 % Ophth Sol 2.5 ML DROPS 1 DROP EYE-BOTH (21:32)
[2024-08-15] VITALS (13 sets, daily range): BP systolic 80–113; BP diastolic 46–59; PULSE 56–77; RESP 16–20; TEMP 36.1–36.9; O2SAT 96–99
[2024-08-15] MEDS: Lactated Ringers 1,000 ML 100 ML IVCONT ×2 (00:08→14:37)
--- NOTE | 2024-08-15 01:00 | PC.NURSE ---
Pt has yet to void since last straight cath on previous shift, bladder scanned at 0100, for 100ml, Dr. Serrano made aware with re-scan at 0500. BPs taken on R leg due to incorrect readings by machine to bilateral arms, Dr. Serrano made aware.
[2024-08-15] MEDS: oxyCODONE HCl Immed Release 5 MG TABLET PO ×4 (03:33→16:44)
[2024-08-15] MEDS: Omeprazole 20 MG CAPSULE.DR PO (05:45)
--- NOTE | 2024-08-15 06:18 | PC.NURSE ---
bladder scanned at 0500: 201, Dr. Serrano made aware, next bladder scan for 0900. lungs sound clear, no new edema noted, non-pitting to left leg. LR running @100ml/hr.
[2024-08-15 06:26] LABS: MANUAL DIFF FLAG NO
[2024-08-15 06:29] LABS: Basophils Percent Auto 0.2 % (0-2); Eosinophils Percent Auto 0.1 % (0-4); Hematocrit 32.6 % (37.0-47.0); Hemoglobin 10.6 g/dl (12.0-16.0); Imm Gran Abs Auto 0.03 X10*3/uL (0.00-0.03); Imm Gran Pct Auto 0.3 % (0.0-0.4); Lymphocytes Absolute Auto 1.6 X10*3/uL (1.2-4.9); Lymphocytes Percent Auto 17.6 % (20-40); Mean Corpuscular HGB Conc 32.5 g/dl (31.0-35.0); Mean Corpuscular Hemoglobin 28.8 pg (27.0-33.0); Mean Corpuscular Volume 88.6 fL (80.0-98.0); Mean Platelet Volume 10.9 fL (9.4-12.3); Monocytes Absolute Auto 0.9 X10*3/uL (0.1-1.2); Monocytes Percent Auto 9.7 % (2-11); Neutrophils Absolute Auto 6.5 x10*3/uL (2.0-8.3); Neutrophils Percent Auto 72.1 % (45-73); Platelet Count 166 X10*3/uL (160-400); Red Blood Count 3.68 X10*6/uL (4.20-5.50); Red Cell Distribution Width 14.1 % (11.0-16.0)
[2024-08-15 06:43] LABS: Anion Gap 10 (12-20); Blood Urea Nitrogen 13 mg/dL (9-16); Calcium 8.2 mg/dL (8.4-10.2); Carbon Dioxide 26 mmol/L (22-29); Chloride 104 mmol/L (96-108); Creatinine Clr Calc Pharmacy 81.3; Estimated Glomerular Filt Rate > 60; Glucose Fasting 120 mg/dL (60-99); Potassium 4.1 mmol/L (3.3-5.1); Sodium 136 mmol/L (135-145)
[2024-08-15] MEDS: oxyCODONE HCl ER 10 MG TAB.ER.12H PO ×2 (07:10→20:06)
[2024-08-15] MEDS: Celecoxib 200 MG CAPSULE PO ×2 (07:10→20:05)
[2024-08-15] MEDS: Docusate Sodium 100 MG CAPSULE PO ×2 (07:10→20:06)
[2024-08-15] MEDS: Sertraline HCL 25 MG TABLET 75 MG PO (07:10)
--- NOTE | 2024-08-15 07:29 | PM.PNORT ---
Subjective Subjective Date of Service: 08/15/24 Interval history: POD1 s/p LTKA Patient is resting in bed comfortably No overnight events Pain is managed No additional complaints Physical Exam Vital Signs: Vital Signs: Last Vital Signs Temp 98.1 F 08/15/24 07:00 Pulse 60 08/15/24 07:00 Resp 16 08/15/24 07:00 BP 96/53 L 08/15/24 07:00 Pulse Ox 99 08/15/24 07:00 O2 Del Method Room Air 08/15/24 07:00 BMI result Body Mass Index 32.4 Const: General: cooperative, healthy appearing and no acute distress Resp: Effort & Inspection: normal respiratory effort and able to speak in complete sentences Cardio: Rate: regular rate Peripheral pulses: Peripheral pulses 2+ throughout GI: Palpation (GI): Soft to palpation Skin: Lesions: no lesions Rashes: no rashes Extrem: Other: left knee dressing is c/d/i. Able to dorsi/plantar flex. Calf is supple and nontender. Sensation intact. Pedal pulse intact. Procedures Date of Service Date of Service: 08/15/24 Progress Note: A&P Assessment and plan (1) Status post total knee replacement, left: Status: Acute Plan Continue pain mgmnt Begin Lovenox for dvt ppx begin PT for LTKA Dispo planning-Pending PT eval, pain mgmnt, likely will need rehab placement Time Spent With Patient Time: Total time managing care of this patient today ____ minutes. Quality Stroke Does the patient have a stroke diagnosis?: No VTE Prior VTE?: No VTE Risk Level:: Medical - moderate - high VTE Device Contraindication: N/A - Device Ordered VTE Drug Contraindication: N/A - Med Ordered
--- NOTE | 2024-08-15 07:35 | W.PM.OPN ---
Operative Note Operative Note Date of Service: 08/14/24 Narrative: Date of Service: 08/14/24 Pre-op diagnosis: Left knee OA Post-op diagnosis: same Procedure: Left TKA Implants: [place] Triathlon Cemented 3/4 with 50mm stem/13ps/29a Surgeon: Edinson Kahn MD Anesthesia: GETA and regional Was an [employer] Patrol used for this Procedure?: Yes [employer]: Kelvin Decker Estimated blood loss (mL): 200 IV fluids (mL): 1,000 Pathology: other Condition: stable Disposition: PACU Procedure in detail: The patient was brought to the operating room and prepped and draped in standard sterile fashion. A time-out was called to identify proper site proper procedure proper surgeon and IV antibiotics were administered. 1 g of IV tranexamic acid was administered. I began by making a midline incision to the retinaculum and performed a medial parapatellar arthrotomy. The patella was translated laterally and the knee was flexed up. There was tricompartmental eburnation and medial tibial bone loss. I performed a small medial peel and resected the infrapatellar fat pad. James's line was then used to drill my intramedullary femoral guide and my distal femur cut of 12mm was made in 5 degrees of valgus while protecting the soft tissues. I then measured a # 3 femur and placed my cutting guide and made my anterior posterior and chamfer cuts in 3 deg ER while protecting the soft tissues at all times. I then made my box but removing the PCL. Once I was satisfied with my cuts I turned my attention to the tibia. I removed the meniscus medially and laterally and , using an external cutting guide, in line with the tibial crest and the third ray, I made my distal tibial cut in 0 deg slope of while protecting the posterior soft tissues at all times. An extension block was used to confirm appropriate amount of bony resection. I then sized a #4 tibia and once I was satisfied that there was complete tibial coverage I placed my trial and with the trial femur in place took the knee through range of motion. I was satisfied with the extension and flexion as well as the balance at 0, 30 and 90 degrees. I then turned my attention to the patella where I removed 1 cm from the undersurface of the patella and then trialed a 29a patellar button. Again the knee was taken through range of motion I was satisfied with the tracking. The bone quality was poor and I elected to place a 50mm tibial stem.I then prepared the tibia with a drill and punch. A femoral bone plug was placed and the knee was irrigated copiously. I then cemented the patella, tibia and femur in standard fashion. Axial compression and a clamp were used while the cement dried. Once the cement was hard on the back table all excess cement was removed and I trialed different inserts until I selected a #13ps insert. The final insert was placed and local TXA was administered. The knee was then closed with a running Quill suture, a 3 0 Vicryl and nesha on the skin. Patient was then placed in sterile dressing and brought to recovery room in stable condition there were no known complications.
--- NOTE | 2024-08-15 08:37 | HO.POSTANES ---
Post Anesthesia Evaluation Post Anesthesia Evaluation Date of Service: 08/14/24 Vital Signs: Vital Signs Temp Pulse Resp BP Pulse Ox O2 Del Method 08/15/24 07:00 98.1 F 60 16 96/53 L 99 Room Air 08/15/24 03:00 96.9 F 56 18 107/58 L 97 Room Air 08/14/24 23:00 97.0 F 53 18 108/56 L 97 Room Air Anesthesia: Spinal Mental Status: Awake Pain Control: Satisfactory Nausea/Vomiting: None Hydration: Adequate Anesthesia-Related Issues: No Anes. Related Issues
[2024-08-15] MEDS: HYDROmorphone HCl 0.5 MG/0.5 ML SYRINGE 0.25 MG IVPUSH ×2 (08:41→23:03)
--- NOTE | 2024-08-15 09:40 | MHC.CM.PN ---
IMM 08/15. Pt self-care, lives alone in an apartment. Pt uses a cane, walker, and has assistive rails in the shower. PT has evaluated pt and are recommending STR, pts first choice is [facility] in [place]. If going to STR, pt will transport via BLS. New HCP completed with pt, now on file. PCP: Dr. Kalen Gonsalves
[2024-08-15] MEDS: Acetaminophen 325 MG TABLET 650 MG PO ×2 (10:33→18:05)
[2024-08-15] MEDS: Enoxaparin Sodium 40 MG/0.4 ML SYRINGE SUBCUT (10:35)
--- NOTE | 2024-08-15 13:19 | PC.NURSE ---
Low BP 82/50 left arm manually,80/46 left arm with BP machine,86/51 right arm with BP machine,patient weak and tired,Dr. Sommers notified,assisted patient back to bed with PT ,patient eating lunch,bolus infusing as ordered
[2024-08-15] MEDS: 0.9 % Sodium Chloride 1,000 ML 999 ML IV (13:28)
[2024-08-15] MEDS: 0.9 % Sodium Chloride Flush 3 ML SYRINGE IVFLUSH (14:37)
--- NOTE | 2024-08-15 14:53 | PC.NURSE ---
BP 101/59 improved after bolus,Dr. Sommers and ISABELA Gallardo notified.
--- NOTE | 2024-08-15 15:41 | PM.EVENT ---
Event Note Date of Service: 08/15/24 Event Note: The patient had an incident of low BP likely due to hypovolemia not due to severe sepsis responded well to IVF bolus To keep on gentle hydration for now Time Spent With Patient Time: Total time managing care of this patient today ____ minutes.
[2024-08-15] MEDS: Famotidine 20 MG TABLET 40 MG PO (16:45)
[2024-08-15] MEDS: Latanoprost 0.005 % Ophth Sol 2.5 ML DROPS 1 DROP EYE-BOTH (20:15)
[2024-08-16] MEDS: Lactated Ringers 1,000 ML 100 ML IVCONT (00:44)
[2024-08-16 03:45] VITALS: BP 132/78; PULSE 62; RESP 16; TEMP 36.7; O2SAT 98
[2024-08-16] MEDS: oxyCODONE HCl Immed Release 5 MG TABLET PO ×2 (04:09→14:23)
[2024-08-16] MEDS: Omeprazole 20 MG CAPSULE.DR PO (06:18)
[2024-08-16 06:23] LABS: Hematocrit 32.4 % (37.0-47.0); PLT CLUMP 1; Red Cell Distribution Width 14.1 % (11.0-16.0)
[2024-08-16 06:25] LABS: Hemoglobin 10.6 g/dl (12.0-16.0); Mean Corpuscular HGB Conc 32.7 g/dl (31.0-35.0); Mean Corpuscular Hemoglobin 28.6 pg (27.0-33.0); Mean Corpuscular Volume 87.6 fL (80.0-98.0); Mean Platelet Volume 11.1 fL (9.4-12.3)
[2024-08-16 06:26] LABS: Platelet Count 128 X10*3/uL (160-400); White Blood Count 6.8 X10*3/uL (4.8-10.8)
[2024-08-16 06:33] LABS: Anion Gap 13 (12-20); Blood Urea Nitrogen 6 mg/dL (9-16); Calcium 8.4 mg/dL (8.4-10.2); Carbon Dioxide 25 mmol/L (22-29); Chloride 103 mmol/L (96-108); Creatinine Clr Calc Pharmacy 95.8; Estimated Glomerular Filt Rate > 60; Glucose Random 109 mg/dL (60-115); Potassium 3.8 mmol/L (3.3-5.1); Sodium 137 mmol/L (135-145)
[2024-08-16 07:32] VITALS: BP 130/71; PULSE 69; RESP 14; TEMP 36.9; O2SAT 97
[2024-08-16 07:40] LABS: Glucose, Whole Blood 103 mg/dL (60-115)
[2024-08-16] MEDS: 0.9 % Sodium Chloride Flush 3 ML SYRINGE IVFLUSH ×2 (08:44→16:42)
[2024-08-16] MEDS: oxyCODONE HCl ER 10 MG TAB.ER.12H PO (08:45)
[2024-08-16] MEDS: Docusate Sodium 100 MG CAPSULE PO (08:46)
[2024-08-16] MEDS: Sertraline HCL 25 MG TABLET 75 MG PO (08:46)
[2024-08-16] MEDS: Celecoxib 200 MG CAPSULE PO (08:46)
--- NOTE | 2024-08-16 08:59 | PM.PNORT ---
Subjective Subjective Date of Service: 08/16/24 Interval history: POD1 s/p POD2 s/p LTKA Patient is resting in bed comfortably No overnight events Pain is managed No additional complaints Physical Exam Vital Signs: Vital Signs: Last Vital Signs Temp 98.5 F 08/16/24 07:32 Pulse 69 08/16/24 07:32 Resp 14 08/16/24 07:32 BP 130/71 08/16/24 07:32 Pulse Ox 97 08/16/24 07:32 O2 Del Method Room Air 08/16/24 07:32 BMI result Body Mass Index 32.4 Const: General: cooperative, healthy appearing and no acute distress Resp: Effort & Inspection: normal respiratory effort and able to speak in complete sentences Cardio: Rate: regular rate Peripheral pulses: Peripheral pulses 2+ throughout GI: Palpation (GI): Soft to palpation Skin: Lesions: no lesions Rashes: no rashes Extrem: Other: left knee dressing is c/d/i. Able to dorsi/plantar flex. Calf is supple and nontender. Sensation intact. Pedal pulse intact. Procedures Date of Service Date of Service: 08/16/24 Progress Note: A&P Assessment and plan (1) Status post total knee replacement, left: Status: Acute Plan Continue pain mgmnt Continue Lovenox for dvt ppx Continue PT for LTKA Dispo planning- PT, pain mgmnt, rehab placement Time Spent With Patient Time: Total time managing care of this patient today ____ minutes. Quality Stroke Does the patient have a stroke diagnosis?: No VTE Prior VTE?: No VTE Risk Level:: Medical - moderate - high VTE Device Contraindication: N/A - Device Ordered VTE Drug Contraindication: N/A - Med Ordered
[2024-08-16] MEDS: HYDROmorphone HCl 0.5 MG/0.5 ML SYRINGE 0.25 MG IVPUSH ×2 (10:10→16:38)
[2024-08-16] MEDS: Enoxaparin Sodium 40 MG/0.4 ML SYRINGE SUBCUT (10:11)
[2024-08-16 10:46] VITALS: BP 130/71; PULSE 69; O2SAT 97
--- NOTE | 2024-08-16 10:52 | MHC.CM.PN ---
DP: PT HAS BEEN MEDICALLY CLEARED FOR DC TO STR AT [facility]. CENTER HAS OBTAINED INSURANCE AUTH. AND BLS TRANSPORT BOOKED FOR 2:30 PM VIA [facility]. [facility] AUTH FOR TRANSPORT OBTAINED. BOOKING ID # [id number]. RN AWARE.
[2024-08-16 11:33] LABS: Glucose, Whole Blood 111 mg/dL (60-115)
[2024-08-16 16:40] LABS: Glucose, Whole Blood 82 mg/dL (60-115)
== END 2024-08-16 16:50 | disposition skilled nursing facility (03) | DRG 470 ==
LOC: HO.SSSA 09:39 → HO.S3 13:16
PROVIDERS: Physician Assistant; Student in an Organized Health Care Education/Training Program; Admitting Provider Orthopaedic Surgery; PCP Family Medicine; Visit Provider Orthopaedic Surgery
PROC: 0SRD0J9 Replacement of Left Knee Joint with Synthetic Substitute, Cemented, Open Approach (ICD-10-PCS; CPT 27447; principal; 2024-08-14 09:30)
DX: M17.12 Unilateral primary osteoarthritis, left knee (principal); E86.1 Hypovolemia; K21.9 Gastro-esophageal reflux disease without esophagitis; E11.9 Type 2 diabetes mellitus without complications; I95.9 Hypotension, unspecified; G89.18 Other acute postprocedural pain; Z79.899 Other long term (current) drug therapy
CPT/HCPCS: 36415; 73560; 80048; 82947; 85014; 85018; 85025; 85027; 86850; 86900; 86901; 87640; 87641; 88304; 88305; 88311; 97110; 97116; 97161; C1713; C1776; J0131; J0665; J0690; J1100; J1171; J1650; J2250; J2405; J2704; J7120

== ENCOUNTER → 2024-08-14 09:39 | Outpatient (BNV) | payer OTHER, SELFPAY | PROVIDERS: Admitting Provider Orthopaedic Surgery; PCP Family Medicine; Visit Provider Student in an Organized Health Care Education/Training Program | DX: K21.9 Gastro-esophageal reflux disease without esophagitis (principal); M54.30 Sciatica, unspecified side; Z96.652 Presence of left artificial knee joint | CPT/HCPCS: 99222; 99499 ==

== ENCOUNTER → 2024-08-14 09:39 | Outpatient (BNV) | payer OTHER, SELFPAY | PROVIDERS: Admitting Provider Orthopaedic Surgery; PCP Family Medicine; Visit Provider Orthopaedic Surgery | DX: Z47.1 Aftercare following joint replacement surgery (principal); Z96.652 Presence of left artificial knee joint | CPT/HCPCS: 27447; 99024 ==

== ENCOUNTER 2024-08-30 09:13 | Outpatient (AMB) | payer OTHER, SELFPAY ==
--- NOTE | 2024-08-30 09:25 | A.OFFVIS_ITS ---
Intake Visit Reasons: 2WK PO: L TKA w/NE 08/14/24 Intake Note: Tootie a 63 year old female who presents today for a post operative visit of LT TKA, DOS 08/14/24 NE. Patient reports returned home on Tuesday from the rehab. She continues to work with at home PT. She continues to have pain with a current pain level 7 out of 10. Her pain radiates up and down her leg. Finds icing helped with ankle swelling. Allergies adhesive Adverse Reaction (Severe, Verified 08/30/24 09:38) Rash/broken skin at site Medication List - Last Reconciled 08/30/24 by Kelvin Decker PA-C acetaminophen 650 mg (2 x 325 mg) PO Q6H PRN 30 days celecoxib 200 mg PO BID 30 days docusate sodium 100 mg PO BID 30 days enoxaparin 40 mg (0.4 mL) subcut Q24H 42 days famotidine 40 mg PO QPM gabapentin 100 mg PO DAILY PRN hydroxyzine HCl 25 mg PO TID PRN latanoprost 0.005% 1 drp ophthalmic (eye) BEDTIME multivitamin with iron 1 tab PO QAM oxycodone 5 mg PO Q4H PRN 7 days pantoprazole 40 mg PO QAM sertraline 75 mg PO QAM walker Folding Front wheeled walker HPI HPI 2WK PO: L TKA w/NE 08/14/24: Details: 63-year-old female who returns to the office today for post-op left TKA, 08/14/[address] Kahn. She reports she returned to home on Tuesday from the rehab. She continues to have pain and numbness in her knee that radiates up and down her leg. She rates the pain as 7 on the scale of 0-10. She has been working on home physical therapy as instructed. She takes oxycodone for her pain. She had ankle swelling relief with icing. [facility] Medical History (Updated 08/17/24 @ 00:01 by Myra Traylor) Type 2 diabetes mellitus Renal cyst Osteoarthritis Depression GERD (gastroesophageal reflux disease) Lumbar radiculopathy Barretts esophagus Surgical History Status post total left knee replacement H/O breast biopsy Hx of section Hx of repair of right rotator cuff History of esophagogastroduodenoscopy (EGD) H/O colonoscopy Hx of gastric bypass Social History Household Members: None Housing: Apartment Are you a primary animal daycare provider to a significant other at home: No Do you presently have visiting nurse or other home services: No Alcohol intake: never Patient Tobacco Use Status: Never used Tobacco service: No Current occupational status: unemployed Review of Systems Const All systems reviewed & are unremarkable except as noted in HPI and below Physical Exam Extrem Other: Left knee: Incision clean, dry and intact. No redness or drainage. ROM 0-90 degrees. Calf supple, nontender. NVI. Assessment & Plan Assessment & Plan (1) Status post total knee replacement, left: Code(s): Z96.652 - Presence of left artificial knee joint Category: Surgical Plan [place] removed, steri strips applied. She will begin to transition to Outpatient PT to continue working on Gait training, ROM and quad strength. She requested attending a clinic that is not affiliated with [facility]; therefore, she was given a print out of her PT order. No driving for another 4 weeks. She will require ppx abx for dental procedures. She will f/u in 4 weeks, sooner if needed. Orders: Orders PT Evaluation and Treatment Today Z96.652 - Presence of left artificial knee joint Medications: Refilled enoxaparin 40 mg (0.4 mL) subcut Q24H 16.8 mL 0RF 42 days celecoxib 200 mg PO BID 60 caps 0RF 30 days Patient Instructions: Scribed for Kelvin Decker PA-C, by Antonio Ford nuclear medical technologist, on 08/30/2024 at 9:15 AM EST.? I, Kelvin Decker PA-C, have personally reviewed and agree with the information entered by the scribe. Coding Level of Care Code Global (62226) Diagnoses Status post total knee replacement, left Z96.652
== END 2024-08-30 10:34 | disposition home or self-care (01) ==
PROVIDERS: PCP Family Medicine; Visit Provider Physician Assistant
DX: Z96.652 Presence of left artificial knee joint (principal)
CPT/HCPCS: 99024

== ENCOUNTER → 2024-08-30 09:13 | Outpatient (BNVA) | payer OTHER, SELFPAY | PROVIDERS: PCP Family Medicine; Visit Provider Physician Assistant | DX: Z96.652 Presence of left artificial knee joint (principal) | CPT/HCPCS: 99212 ==

== ENCOUNTER 2024-09-20 07:49 | Outpatient (AMB) | payer OTHER, SELFPAY ==
--- NOTE | 2024-09-20 08:20 | MHC.OFFVIS ---
Vital Signs 09/20/24 08:21 Height 5 ft 1 in Weight 162 lb 6 oz BMI 30.7 Intake Visit Reasons: PO - L TKA NE 08/14/24 Intake Note: Tootie is a 63 year old female who presents today for a post operative follow up of her left knee s/p Left TKA 08/14/2024. She was given a physical therapy script to take to an outside facility. She is currently doing PT through [facility] at home and next week starts outpatient PT. Patient reports she is having intermittent mild pain in her left knee mostly at night. Her pains are in the anterior and posterior aspect of the knee. She expresses numbness when she palpitates the lateral aspect of the left knee. She finds relief with Tylenol. If her pain bothers her at night she finds relief by taking oxycodone. Allergies adhesive Adverse Reaction (Severe, Verified 08/30/24 09:38) Rash/broken skin at site HPI HPI PO - L TKA NE 08/14/24: Details: Tootie is a 63 year old female who presents today for a post operative follow up of her left knee s/p Left TKA 08/14/2024. She was given a physical therapy script to take to an outside facility. She is currently doing PT through [facility] at home and next week starts outpatient PT. Patient reports she is having intermittent mild pain in her left knee mostly at night. Her pains are in the anterior and posterior aspect of the knee. She expresses numbness when she palpitates the lateral aspect of the left knee. She finds relief with Tylenol. If her pain bothers her at night she finds relief by taking oxycodone. [facility] Medical History (Updated 08/17/24 @ 00:01 by Myra Traylor) Type 2 diabetes mellitus Renal cyst Osteoarthritis Depression GERD (gastroesophageal reflux disease) Lumbar radiculopathy Barretts esophagus Surgical History (Updated 09/18/24 @ 09:51 by Zeny Layton CMA) Status post total left knee replacement (08/07/24) H/O breast biopsy Hx of section Hx of repair of right rotator cuff History of esophagogastroduodenoscopy (EGD) H/O colonoscopy Hx of gastric bypass Social History Household Members: None Housing: Apartment Are you a primary manager primary care to a significant other at home: No Do you presently have visiting nurse or other home services: No Alcohol intake: never Patient Tobacco Use Status: Never used Tobacco service: No Current occupational status: unemployed Physical Exam Vital Signs: BMI result Body Mass Index 30.7 Extrem Other: 0-120 degrees of motion. Stable arc of motion Incision clean dry and intact Assessment & Plan Assessment & Plan (1) Status post total knee replacement, left: Code(s): Z96.652 - Presence of left artificial knee joint Category: Surgical Plan: Patient is doing very well 6 weeks status post left knee replacement. Continue physical therapy and gait training. Follow up in 6 weeks. Coding Level of Care Code Global (60971) Diagnoses Status post total knee replacement, left Z96.652
[2024-09-20 08:21] VITALS: BMI 30.7
== END 2024-09-20 08:42 | disposition home or self-care (01) ==
PROVIDERS: PCP Family Medicine; Visit Provider Orthopaedic Surgery
DX: Z96.652 Presence of left artificial knee joint (principal)
CPT/HCPCS: 99024

== ENCOUNTER → 2024-09-20 07:49 | Outpatient (BNVA) | payer OTHER, SELFPAY | PROVIDERS: PCP Family Medicine; Visit Provider Orthopaedic Surgery | DX: M25.562 Pain in left knee (principal); Z47.1 Aftercare following joint replacement surgery; Z96.652 Presence of left artificial knee joint | CPT/HCPCS: 99212 ==

== ENCOUNTER 2024-11-01 09:23 | Outpatient (AMB) | payer OTHER, SELFPAY ==
--- NOTE | 2024-11-01 09:32 | MHC.OFFVIS ---
Vital Signs 11/01/24 09:56 Height 5 ft 1 in Weight 162 lb BMI 30.6 Intake Visit Reasons: PO - L TKA NE 08/14/24 Intake Note: Tootie is a 64 year old female who presents today for a post operative LT TKA on 08/14/24 NE. X-rays updated. Patient reports for her left knee everything is going as expected, she is limited with bending her knee. She has concerns of right leg pain and no strength in her leg. States symptoms are making it difficult to do her left knee exercises. Her pain is located at the lateral aspect of right leg and travels to her groin and buttocks, Denies injury. Finds very little relief with topical cream ice and heat. Allergies adhesive Adverse Reaction (Severe, Verified 11/01/24 09:55) Rash/broken skin at site Medication List - Last Reconciled 11/01/24 by Kelvin Decker PA-C acetaminophen 650 mg (2 x 325 mg) PO Q6H PRN 30 days famotidine 40 mg PO QPM gabapentin 100 mg PO DAILY PRN hydroxyzine HCl 25 mg PO TID PRN latanoprost 0.005% 1 drp ophthalmic (eye) BEDTIME multivitamin with iron 1 tab PO QAM oxycodone 5 mg PO Q4H PRN 7 days pantoprazole 40 mg PO QAM sertraline 75 mg PO QAM walker Folding Front wheeled walker HPI HPI PO - L TKA NE 08/14/24: Details: 64-year-old female returns to the office today 3 months status post left total knee arthroplasty. She is doing quite well with the left knee. She continues to work with therapy to maintain her range of motion and strength. She states she is struggling with her gait because of the right lower extremity. She states that she has right knee pain but also right hip pain that affects her ability to perform daily activities. She states that she is favoring the left side which is limiting her progression with therapy because she does not want to fall due to her right lower extremity pain. She occasionally ambulates with an assistive device. [facility] Medical History (Updated 11/01/24 @ 10:50 by Kelvin Decker PA-C) Type 2 diabetes mellitus Renal cyst Osteoarthritis Depression GERD (gastroesophageal reflux disease) Lumbar radiculopathy Barretts esophagus Surgical History Status post total left knee replacement (08/07/24) H/O breast biopsy Hx of section Hx of repair of right rotator cuff History of esophagogastroduodenoscopy (EGD) H/O colonoscopy Hx of gastric bypass Social History (Reviewed 09/20/24 @ 08:26 by Kandice Gloria [facility]) Household Members: None Housing: Apartment Are you a primary care program resident to a significant other at home: No Do you presently have visiting nurse or other home services: No Alcohol intake: never Patient Tobacco Use Status: Never used Tobacco service: No Current occupational status: unemployed Review of Systems Const All systems reviewed & are unremarkable except as noted in HPI and below Physical Exam Vital Signs: BMI result Body Mass Index 30.6 Extrem Other: Left knee incision is well healed. No erythema no joint effusion. She has 0-110 degrees of range of motion. Calf supple nontender neurovascularly intact. Right knee varus deformity. Full range of motion with crepitus. No discomfort with range of motion of the hip. Neurovascularly intact. Results Reviewed Results Reviewed: X-rays of the left knee obtained in the office today and reviewed by me show intact prosthesis without signs of loosening. Right knee is severely arthritic with varus deformity. X-rays of the right hip the pain is in the office today and reviewed by me show moderate arthritis Assessment & Plan Assessment & Plan (1) Status post total knee replacement, left: Code(s): Z96.652 - Presence of left artificial knee joint Category: Surgical (2) Osteoarthritis of right knee: Code(s): M17.11 - Unilateral primary osteoarthritis, right knee Category: Medical (3) Osteoarthritis of right hip: Code(s): M16.11 - Unilateral primary osteoarthritis, right hip Category: Medical Plan She will continue to work with physical therapy for the left total knee arthroplasty focusing on range of motion gait mechanics and strengthening. We discussed her right lower extremity given she has severe right knee arthritis with varus deformity. She does have mild to moderate arthritis of the right hip however this does not seem to be affecting her as much as the right knee. She will continue with therapy and over the next several weeks pay attention to how limited she is with progression in therapy and daily activities due to the right knee. When she is ready she will contact us to proceed with right total knee arthroplasty with Dr. Kahn. Otherwise she will follow up in 6 months for her left total knee sooner if needed. Orders: Orders XR hip RT min 2V Today M25.551 - Pain in right hip PT Evaluation and Treatment Today M17.11 - Unilateral primary osteoarthritis, right knee, Z96.652 - Presence of left artificial knee joint XR knee LT 3V Today M25.562 - Pain in left knee XR knee RT 1V Today M25.561 - Pain in right knee Coding Level of Care Code Est Pt Level 4 (68709) Complex EM visit Add On G2211 Diagnoses Status post total knee replacement, left Z96.652 Osteoarthritis of right knee M17.11 Osteoarthritis of right hip M16.11
[2024-11-01 09:56] VITALS: BMI 30.6
== END 2024-11-01 10:51 | disposition home or self-care (01) ==
PROVIDERS: PCP Family Medicine; Visit Provider Physician Assistant
DX: Z47.1 Aftercare following joint replacement surgery (principal); Z96.652 Presence of left artificial knee joint; M17.11 Unilateral primary osteoarthritis, right knee; M16.11 Unilateral primary osteoarthritis, right hip
CPT/HCPCS: 99213; G2211

== ENCOUNTER 2024-11-01 09:50 | Outpatient (REF) | payer OTHER, SELFPAY ==
--- NOTE | ~2024-11-01 | XR_ITS ---
EXAMINATION: XR HIP, RIGHT CLINICAL INFORMATION: M25.551 - Pain in right hip COMPARISON: None available. TECHNIQUE: Two views of the right hip. AP pelvis one view FINDINGS: Pelvis: There is mild loss of bilateral hip joint space slightly greater on the right without bony erosive changes. There is no acute fracture or dislocation. SI joints are normal. There are scattered phleboliths in the pelvis. AP and frog-leg views right hip: There is mild loss of right hip joint space without bony erosive changes. There is mild right lateral acetabular enthesophyte. No loose bodies seen. No acute lytic or sclerotic process. XR/XR hip RT min 2V IMPRESSION: Mild early degenerative arthritic changes right hip: No visible acute fracture or dislocation. Electronically signed by: Dean Osorio MD 11/02/2024 09:41 AM [facility]
--- NOTE | ~2024-11-01 | XR_ITS ---
EXAMINATION: XR KNEE, RIGHT CLINICAL INFORMATION: M25.561 - Pain in right knee COMPARISON: Left knee 08/14/2024. TECHNIQUE: AP bilateral knee standing 1 view. FINDINGS: Single AP view bilateral knees standing reveals total knee prosthesis in satisfactory alignment. There is lucency seen along the medial femoral condyle suspicious for fracture. There is bilateral knee genital varus deformities. There is moderate loss of right knee joint space with periarticular spurring consistent with arthritic changes. XR/XR knee RT 1V IMPRESSION: Moderate degenerative arthritic changes medial compartment right knee. Left knee prosthesis in satisfactory alignment. Suspect medial condyle periprosthetic FRACTURE. It is new since previous exam 08/14/2024. Electronically signed by: Dean Osorio MD 11/02/2024 09:47 AM [facility]
--- NOTE | ~2024-11-01 | XR_ITS ---
EXAMINATION: XR KNEE, LEFT CLINICAL INFORMATION: M25.562 - Pain in left knee COMPARISON: None available. TECHNIQUE: Four views of the left knee. FINDINGS: The total left knee prosthesis with prosthetic components in satisfactory alignment. No periprosthetic fracture hardware malfunction. Mild suprapatellar joint effusion seen. XR/XR knee LT 3V IMPRESSION: Total left knee prosthesis in satisfactory alignment with mild suprapatellar joint effusion. No bony abnormality seen. Electronically signed by: Dean Osorio MD 11/02/2024 09:43 AM EST
== END 2024-11-01 09:51 | disposition home or self-care (01) ==
LOC: HO.HOSX 09:50
PROVIDERS: Visit Provider Physician Assistant
DX: M25.551 Pain in right hip (principal); M25.561 Pain in right knee; M25.562 Pain in left knee; M17.11 Unilateral primary osteoarthritis, right knee; M16.11 Unilateral primary osteoarthritis, right hip; Z96.652 Presence of left artificial knee joint
CPT/HCPCS: 73502; 73560; 73562; 99212

== ENCOUNTER 2025-05-13 09:06 | Outpatient (REF) | payer OTHER, SELFPAY ==
--- NOTE | ~2025-05-13 | XR_ITS ---
EXAMINATION: XR KNEE, LEFT CLINICAL INFORMATION: M25.562 - Pain in left knee COMPARISON: November 01, 2024 TECHNIQUE: AP bilateral standing, sunrise, and lateral views of the left knee. FINDINGS: There is maturation of heterotopic ossification located cephalad to the right medial femoral condyle. Vertical lucency at the junction of the metaphysis and condyle medial to the prosthesis shows interval healing with increasing sclerosis and increased lucency. There is increasing lucency seen mostly anterior to the tibial stem, but no sign of migration of the hardware. 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 XR/XR knee LT 3V IMPRESSION: Interval healing of the medial femoral condyle. 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 There is no evidence of migration of the hardware. Electronically signed by: Luis Miguel Murray MD 05/13/2025 12:44 PM EDT
--- OUTSIDE RECORDS SUMMARY | 2025-05-14 09:31 | XMS_ITS | Encounter Summary ---
Author Organization [employer] [facility] Address [address] [place] [address] Care Team Providers Care Digital Marketing Lead Name Role Phone Unavailable Primary Care Provider Unavailabl e Encounter Details Date Type Department Care Team (Latest Contact Info) Description 06/10/2022 Abstract [facility] CONVERSIONS Dental, Provider, DDS Social History Tobacco [...]
--- OUTSIDE RECORDS SUMMARY | 2025-05-14 09:31 | XMS_ITS | Clinical Summary ---
Author Organization 175 [facility] Address 175 [place] [address] Phone Care Team Providers Care Printed Circuit Layout Taper Name Role Phone Nidhi Osei MD Primary [...] 8:00 AM EDT Telemedicine Bariatric Surgery - [address] [address] Class 1 obesity without serious comorbidity with body mass index (BMI) of 32.0 to 32.9 in adult, unspecified obesity type (Primary Dx) 04/15/2025 Telephone Bariatric Surgery [address] [address] Leeann Higgins MD Medication Reaction (Phetermine 15MG) 04/09/2025 9:00 AM EDT Office Visit Bariatric Surgery [address] [address] Leeann Higgins MD Class 1 [...] 07/11/2025 8:30 AM EDT Nutrition Bariatric Surgery [address] [address] Kesha Orozco, RD [address] [address] 08/20/2025 9:00 AM EST Office Visit Bariatric Surgery [address] [place] [phone] Leeann Higgins MD 175 [facility] [address] [place] [address] Health Maintenance Due Date Last Done Comments [...] LAB CHEMISTRY METHOD 04/09/2025 4:59 PM EDT [facility] TIBC 387 250 - 450 mcg/dL LAB CHEMISTRY METHOD 04/09/2025 4:59 PM EDT [facility] Iron Saturation 25 15 - 50 % LAB CHEMISTRY METHOD 04/09/2025 4:59 PM EDT [facility] Blood Venous blood specimen / Unknown Venipuncture / Unknown 04/09/2025 9:29 AM EDT 04/09/2025 9:29 AM EDT us Leeann Higgins MD LAB BLOOD ORDERABLES Final R esult [facility] [address] [place] [address], * Copper, serum (04/09/2025 9:29 AM EDT) Copper 956 810 - 1990 ug/L 04/15/2025 9:[address] [facility] Comment: Copper values may be elevated to twice the normal levels in . Elevated results may be due to sample collected in a non-certified trace element-free tube. This test was developed and the performance characteristics determined by [facility]. It has not been cleared or approved by the FDA. The laboratory is regulated under CLIA as qualified to perform high-complexity testing. This test is used for patient testing purposes. It should not be regarded as investigational or for research. Test performed at [facility], [address], [place] [address] Verna Quintero MD, PhD - Orange Grower Blood Venous blood specimen / Unknown Venipuncture / Unknown 04/09/2025 9:29 AM EDT 04/09/2025 9:29 AM EDT us Leeann Higgins MD LAB BLOOD ORDERABLES Final R esult Performing Organization Address City/[facility]/ZIP Co de Phone Number [facility] [address] [place] [address] * Zinc (04/09/2025 9:29 AM EDT) Zinc 100 60 - 130 ug/dL 04/12/2025 10:47 AM EDT [facility] Comment: Elevated results may be due to sample collected in a non-certified trace element-free tube. This test was developed and the performance characteristics determined by [facility]. It has not been cleared or approved by the FDA. The laboratory is regulated under CLIA as qualified to perform high-complexity testing. This test is used for patient testing purposes. It should not be regarded as investigational or for research. Test performed at [facility], [address] [place] [address] Verna Quintero MD, PhD - Orange Grower Blood Venous blood specimen / Unknown Venipuncture / Unknown 04/09/2025 9:29 AM EDT 04/09/2025 9:29 AM EDT us Leeann Higgins MD LAB BLOOD ORDERABLES Final R esult Performing Organization Address City/[facility]/ZIP Co de Phone Number [facility] [address] [place] [address] * Vitamin A (04/09/2025 9:29 AM EDT) Vitamin A 45 38 - 106 ug/dL 04/15/2025 7:15 AM EDT [facility] Comment: This test was developed and the performance characteristics determined by [facility]. It has not been cleared or approved by the FDA. The laboratory is regulated under CLIA as qualified to perform high-complexity testing. This test is used for patient testing purposes. It should not be regarded as investigational or for research. Test performed at [facility], [address] , [place] [address] Verna Quintero MD, PhD - Orange Grower Blood Venous blood specimen / Unknown Venipuncture / Unknown 04/09/2025 9:29 AM EDT 04/09/2025 9:29 AM EDT us Leeann Higgins MD LAB BLOOD ORDERABLES Final R esult Performing Organization Address City/[facility]/ZIP Co de Phone Number [facility] [address] [place] [address] * (ABNORMAL) Selenium serum (04/09/2025 9:29 AM EDT) Selenium 261(H) 63 - 160 mcg/L 04/13/2025 8:50 PM EDT [facility] Comment: THIS RESULT HAS BEEN VERIFIED BY REPEAT ANALYSIS. This test was developed and its analytical performance characteristics have been determined by [facility] [place] [place]. It has not been cleared or approved by the U.S. Food and Drug Administration. This assay has been validated pursuant to the CLIA regulations and is used for clinical purposes. Test Performed by [facility], [facility], [address] [place] [address] Sea Daniel M.D., Ph.D., Director of Laboratories , CLIA [id number] Blood Venous blood specimen / Unknown Venipuncture / Unknown 04/09/2025 9:29 AM EDT 04/09/2025 9:29 AM EDT us Leeann Higgins MD LAB BLOOD ORDERABLES Final R esult Performing Organization Address City/[facility]/ZIP Co de Phone Number [facility] [address] [place] [address] * Vitamin D 25 hydroxy (04/09/2025 9:29 AM EDT) [facility] Vit D, 25-Hydroxy 35.0 30.0 - 80.0 ng/mL LAB CHEMISTRY METHOD 04/09/2025 5:12 PM EDT [facility] Blood Venous blood specimen / Unknown Venipuncture / Unknown 04/09/2025 9:29 AM EDT 04/09/2025 9:29 AM EDT Leeann Higgins MD LAB BLOOD ORDERABLES Final R esult [facility] [address] [place] [address], [place] [phone] * Vitamin B1 (04/09/2025 9:29 AM EDT) [facility] Vitamin B1 Whole Blood 79 38 - 122 ug/L 04/15/2025 7:[address] [facility] Comment: This test was developed and the performance characteristics determined by [facility]. It has not been cleared or approved by the FDA. The laboratory is regulated under CLIA as qualified to perform high-complexity testing. This test is used for patient testing purposes. It should not be regarded as investigational or for research. Test performed at [facility], [address], [place] [address] Verna Quintero MD, PhD - Orange Grower Blood Venous blood specimen / Unknown Venipuncture / Unknown 04/09/2025 9:29 AM EDT 04/09/2025 9:29 AM EDT Leeann Higgins MD LAB BLOOD ORDERABLES Final R esult [facility] [address] [place] [address] * (ABNORMAL) Vitamin B6 (04/09/2025 9:29 AM EDT) [facility] Vitamin B6 (Pyridoxine) Level 82(H) 5 - 50 ug/L 04/15/2025 12:18 PM EDT [facility] Comment: This test was developed and the performance characteristics determined by [facility]. It has not been cleared or approved by the FDA. The laboratory is regulated under CLIA as qualified to perform high-complexity testing. This test is used for patient testing purposes. It should not be regarded as investigational or for research. Test performed at [facility], [address] , [place] [address] Verna Quintero MD, PhD - Orange Grower Blood Venous blood specimen / Unknown Venipuncture / Unknown 04/09/2025 9:29 AM EDT 04/09/2025 9:29 AM EDT Leeann Higgins MD LAB BLOOD ORDERABLES Final R esult [facility] [address] [place] [address] * Parathyroid hormone intact (04/09/2025 9:29 AM EDT) [facility] PTH 39.2 18.5 - 88.0 pcg/mL LAB CHEMISTRY METHOD 04/09/2025 5:12 PM EDT [facility] Blood Venous blood specimen / Unknown Venipuncture / Unknown 04/09/2025 9:29 AM EDT 04/09/2025 9:29 AM EDT Leeann Higgins MD LAB BLOOD ORDERABLES Final R esult [facility] [address] [place] [address], [place] [phone] * Hemoglobin A1c (04/09/2025 9:29 AM EDT) [facility] Hemoglobin A1C 6.1 <6.5 % LAB CHEMISTRY METHOD 04/09/2025 8:43 PM EDT [facility] Mean Bld Glu Estim. 128 mg/dL LAB CHEMISTRY METHOD 04/09/2025 8:43 PM EDT [facility] Blood Venous blood specimen / Unknown Venipuncture / Unknown 04/09/2025 9:29 AM EDT 04/09/2025 9:29 AM EDT us Leeann Higgins MD LAB BLOOD ORDERABLES Final R esult Performing Organization Address City/[facility] Co de Phone Number [facility] [address] [place] [address], [place] [phone] * Folate (04/09/2025 9:29 AM EDT) Pathologist [facility] Folate 12.1 2.8 - 17.0 ng/ml LAB CHEMISTRY METHOD 04/09/2025 4:58 PM EDT [facility] Blood Venous blood specimen / Unknown Venipuncture / Unknown 04/09/2025 9:29 AM EDT 04/09/2025 9:29 AM EDT us Leeann Higgins MD LAB BLOOD ORDERABLES Final R esult Performing Organization Address [facility] Co de Phone Number [facility] [address] [place] [address], [place] [phone] * Vitamin B12 (04/09/2025 9:29 AM EDT) Pathologist [facility] Vitamin B-12 652 250 - 900 pcg/mL LAB CHEMISTRY METHOD 04/09/2025 6:44 PM EDT [facility] Blood Venous blood specimen / Unknown Venipuncture / Unknown 04/09/2025 9:29 AM EDT 04/09/2025 9:29 AM EDT us Leeann Higgins MD LAB BLOOD ORDERABLES Final R esult [facility] [address] [place] [address], [place] [phone] * Calcium (04/09/2025 9:29 AM EDT) [facility] Calcium 9.0 8.5 - 10.5 mg/dL LAB CHEMISTRY METHOD 04/09/2025 4:45 PM EDT [facility] Blood Venous blood specimen / Unknown Venipuncture / Unknown 04/09/2025 9:29 AM EDT 04/09/2025 9:29 AM EDT us Leeann Higgins MD LAB BLOOD ORDERABLES Final R esult Performing Organization Address City/[facility]/ZIP Co de Phone Number [facility] [address] [place] [address], [place] [phone] * Albumin (04/09/2025 9:29 AM EDT) [facility] Albumin 3.7 3.2 - 5.0 g/dL LAB CHEMISTRY METHOD 04/09/2025 4:45 PM EDT [facility] Blood Venous blood specimen / Unknown Venipuncture / Unknown 04/09/2025 9:29 AM EDT 04/09/2025 9:29 AM EDT us Leeann Higgins MD LAB BLOOD ORDERABLES Final R esult [facility] [address] [place] [address], [place] [phone] * (ABNORMAL) Lipid panel (05/11/2022) [facility] LDL/HDL Ratio 4 0 - 4 Triglycerides 77 0 - 150 mg/dL Cholesterol 216(A) 0 - 200 mg/dL HDL 57 >=40 mg/dL LDL Cholesterol 144(A) 0 - 100 mg/dL Blood Venous blood specimen / Unknown us Historical Provider LAB BLOOD ORDERABLES Jennifer l Result from Last 3 Months or Most Recently Relevant to Health Maintenance Insurance [facility] MEDICARE Member Subscriber Plan / Payer (Ef fective 2020-Present) Name:Michael Carlson Relation to Subscriber:Self Name:Michael Slade Payer ID:[id number] Group ID:[id number] Type:Not on file Address: [place] [address] [address] [address] Care Teams Printed Circuit Layout Taper Relationship Specialty Start Date End Date Nidhi Osei MD [address] [place] [address] PCP - General Internal Medicine 12/16/21
--- OUTSIDE RECORDS SUMMARY | 2025-05-14 09:31 | XMS_ITS | Encounter Summary ---
Author Organization [facility] Address [address] [facility] [address] [place] [address] Phone Care Team Providers Care Mortgage Originator Name Role Phone Kalen Osei MD Primary Care Prov ider Kalen Osei MD Unavailable + Kalen Osei MD Primary Care Prov ider Reason for Referral * Physical Therapy (Routine) - Closed Specialty Diagnoses / Procedures Referred By Diogenes perez Referred To Contact Physical Therapy Diagnoses Urinary incontinence, unspecified type Kathia Galindo NP Phone: tel: fax: mailto:[email or web address] [address] [place] [address] Phone: tel: Referral ID Status Reason Start Date Expiration Date Visits Re quested Visits Authorized [id number] Closed 07/11/2019 07/11/2020 99 99 Encounter Details Date Type Department Care Team (Late st Contact Info) Description 07/11/2019 Transcribe Orders [facility] [address] [place] [address] Kathia Galindo NP [address] [place] [address] [email or web address] Urinary incontinence, unspecified type (Primary Dx) Social [...] Date/Time Associated Diagnosis Comments AMB REFERRAL TO [facility] PHYSICAL THERAPY Routine 08/09/2019 12:58 PM EDT Urinary incontinence, unspecified type documented in this encounter Results * Ambulatory referral to [facility] Physical Therapy (08/09/2019 12:58 PM EDT) Kathia Galindo NP AMB [facility] REFERRALS Final Result documented in this encounter Visit Diagnoses Diagnosis Urinary incontinence, unspecified type- Primary documented in this encounter Care Teams Mortgage Originator Relationship Specialty Start Date End Date Kalen Osei MD [email or web address] PCP - General Family Medicine 10/18/18 08/14/20 Kalen Osei MD [address] [place] [address] [email or web address] PCP - General Family Medicine 08/15/20 Kalen Osei MD [address] [place] [address] [email or web address] Insurance Assigned Provider 11/18/18 09/22/19 documented as of this encounter Additional Source Comments The information contained in this document represents components of the legal health record. It is not the complete legal health record.[facility]
== END 2025-05-13 09:07 | disposition home or self-care (01) ==
LOC: HO.HOSX 09:06
PROVIDERS: Visit Provider Physician Assistant
DX: M25.562 Pain in left knee (principal); M25.561 Pain in right knee; Z96.652 Presence of left artificial knee joint; Z79.899 Other long term (current) drug therapy
CPT/HCPCS: 73562; 99212

== ENCOUNTER 2025-05-13 11:34 | Outpatient (AMB) | payer OTHER, SELFPAY ==
--- NOTE | 2025-05-13 11:45 | A.OFFVIS_ITS ---
Vital Signs 05/13/25 11:51 Height 5 ft 1 in Weight 162 lb BMI 30.6 Intake Visit Reasons: OV-f/u LT TKA 08/14/24 NE Intake Note: Tootie is a 64 year old female who presents today for a follow up status post LT TKA, DOS 08/14/[address] Kahn. At patient last visit she was instructed to continue working with physical therapy, she will follow up for a routine check up on left knee in 6 months. Patient reports that she is questioning if her right leg is contributing to her left knee discomfort that comes and goes. States that she would like to discuss where she is at for her right knee as she has been holding off on surgery due to caring for her mother. Allergies adhesive Adverse Reaction (Severe, Verified 05/13/25 11:53) Rash/broken skin at site Medication List - Last Reconciled 05/13/25 by Kelvin Decker PA-C acetaminophen 650 mg (2 x 325 mg) PO Q6H PRN 30 days famotidine 40 mg PO QPM gabapentin 100 mg PO DAILY PRN hydroxyzine HCl 25 mg PO TID PRN latanoprost 0.005% 1 drp ophthalmic (eye) BEDTIME multivitamin with iron 1 tab PO QAM pantoprazole 40 mg PO QAM sertraline 75 mg PO QAM walker Folding Front wheeled walker HPI HPI OV-f/u LT TKA 08/14/24 NE: Details: 64-year-old female presents to the office today 9 months status post left total knee arthroplasty on 08/14/[address] Kahn. She has been doing well postoperatively but does occasionally feels some tingling in the quad tendon region. She also feels some stiffness around the patella. She denies any instability or pain with activities. She does complain of right knee pain. Her mother is currently on hospice and she is carrying for her which is her priority at this time. [facility] Medical History (Updated 11/01/24 @ 10:50 by Kelvin Decker PA-C) Type 2 diabetes mellitus Renal cyst Osteoarthritis Depression GERD (gastroesophageal reflux disease) Lumbar radiculopathy Barretts esophagus Surgical History Status post total left knee replacement (08/07/24) H/O breast biopsy Hx of section Hx of repair of right rotator cuff History of esophagogastroduodenoscopy (EGD) H/O colonoscopy Hx of gastric bypass Social History Household Members: None Housing: Apartment Are you a primary certified social workers in health care to a significant other at home: No Do you presently have visiting nurse or other home services: No Alcohol intake: never Patient Tobacco Use Status: Never used Tobacco service: No Current occupational status: unemployed Review of Systems Const All systems reviewed & are unremarkable except as noted in HPI and below Physical Exam Vital Signs: BMI result Body Mass Index 30.6 Extrem Other: Left knee surgical scar is well healed. She has full range of motion and good activation of the quad. No ligamentous laxity. Calf is supple and nontender neurovascularly intact. Results Reviewed Results Reviewed: X-rays of the left knee obtained in the office today and reviewed by me do show interval healing of the medial femoral condyle when compared to previous imaging studies does show a subtle avulsion fragment. There is concern for lucency along the tibial stem however no evidence of loosening around the prosthesis. Assessment & Plan Assessment & Plan (1) Status post total knee replacement, left: Code(s): Z96.652 - Presence of left artificial knee joint Category: Surgical Plan: Images were reviewed with Dr. Kahn in the office today and reassurance was given the prosthesis is intact. The patient will continue with her home exercises and activities as tolerated. I stressed the importance of good quad function. As for her right knee, she would benefit from surgical intervention however this has been placed on hold given the health of her mother. She will reach out to us in the future if she would like to proceed or if there are any concerns. Otherwise she will follow up for her annual visit in 1 year on the left knee. Orders: Orders XR knee LT 3V Today M25.562 - Pain in left knee Coding Level of Care Code Est Pt Level 3 (57814) Complex EM visit Add On G2211 Diagnoses Status post total knee replacement, left Z96.652
[2025-05-13 11:51] VITALS: BMI 30.6
--- OUTSIDE RECORDS SUMMARY | 2025-05-13 12:50 | XMS_ITS | Encounter Summary ---
Author Organization [employer] [facility] Address [address] [place] [address] Care Team Providers Care Dye Reel Operator Name Role Phone Unavailable Primary Care Provider Unavailabl e Encounter Details Date Type Department Care Team (Latest Contact Info) Description 06/10/2022 Abstract [facility] CONVERSIONS Dental, Provider, DDS Social History Tobacco Use Types Packs/Day Years Used Date Smoking Tobacco: Never Assessed Comments Unknown Sex and Gender Information Value Date Recorded Sex Assigned at Female 08/16/2022 10:34 AM EDT Legal Sex Female 10:34 AM EDT Gender Identity Female 08/16/2022 10:34 AM EDT Sexual Orientation Straight 08/16/2022 10 :34 AM EDT documented as of this encounter Plan of Treatment Not on file documented as of this encounter Visit Diagnoses Not on filedocumented in this encounter
--- OUTSIDE RECORDS SUMMARY | 2025-05-13 12:50 | XMS_ITS | Encounter Summary ---
Author Organization [facility] Address [address] [address] Phone Care Team Providers Care Limousine Driver Name Role Phone Kalen Osei MD Primary Care Prov ider Kalen Osei MD Unavailable + Kalen Osei MD Primary Care Prov ider Reason for Referral * Physical Therapy (Routine) - Closed Specialty Diagnoses / Procedures Referred By Diogenes perez Referred To Contact Physical Therapy Diagnoses Urinary incontinence, unspecified type Kathia Galindo NP Phone: tel: fax: [email or web address] [address] [place] [address] Phone: tel: Referral ID Status Reason Start Date Expiration Date Visits Re quested Visits Authorized [id number] Closed 07/11/2019 07/11/2020 99 [phone] Encounter Details Date Type Department Care Team (Late st Contact Info) Description 07/11/2019 Transcribe Orders [facility] [address] [place] [address] Kathia Galindo NP [address] [place] [address] [email or web address] Urinary incontinence, unspecified type (Primary Dx) Social History Tobacco Use Types Packs/Day Years Used Date Smoking Tobacco: Never Smokeless Tobacco: Never Alcohol Use Standard Drinks/Week Comments No 0 (1 standard drink = 0.6 oz pur e alcohol) Comments Unknown Sex and Gender Information Value Date Recorded Sex Assigned at Not on file Legal Sex Female 10:29 AM EDT Gender Identity Not on file Sexual Orientation Not on file documented as of this encounter Plan of Treatment Not on file documented as of this encounter Procedures Procedure Name Priority Date/Time Associated Diagnosis Comments AMB REFERRAL TO [facility] PHYSICAL THERAPY Routine 08/09/2019 12:58 PM EDT Urinary incontinence, unspecified type documented in this encounter Results * Ambulatory referral to [facility] Physical Therapy (08/09/2019 12:58 PM EDT) Kathia Galindo NP AMB [facility] REFERRALS Final Result documented in this encounter Visit Diagnoses Diagnosis Urinary incontinence, unspecified type- Primary documented in this encounter Care Teams Limousine Driver Relationship Specialty Start Date End Date Kalen Osei MD [email or web address] PCP - General Family Medicine 10/18/18 08/14/20 Kalen Osei MD [address] [place] [address] [email or web address] PCP - General Family Medicine 08/15/20 Kalen Osei MD [address] [place] [address] [email or web address] Insurance Assigned Provider 11/18/18 09/22/19 documented as of this encounter Additional Source Comments The information contained in this document represents components of the legal health record. It is not the complete legal health record.[facility]
--- OUTSIDE RECORDS SUMMARY | 2025-05-13 12:50 | XMS_ITS | Clinical Summary ---
Author Organization [address] [facility] Address [address] [place] [address] Phone Care Team Providers Care Director Translational Name Role Phone Nidhi Osei MD Primary Care Provi zhen Allergies Active Allergy Reactions Criticality Noted Date Comments Latex Rash 01/24/2023 Medications calcium phosphate trib/vit D3 (CITRACAL + D3, CALCIUM PHOS, ORAL) Take by mouth. Activ e lisinopriL (PRINIVIL,ZESTRIL) 10 mg tablet Take 1 tablet (10 mg total) by mouth 1 (one) time each day. Active IBUPROFEN ORAL Take by mouth. Active MULTIVITAMIN ORAL Take by mouth. Active cyclobenzaprine HCl (CYCLOBENZAPRINE ORAL) Take by mouth. Activ e CHOLECALCIFEROL, VITAMIN D3, ORAL Take by mouth. Active gabapentin (NEURONTIN) 300 mg capsule Take 1 capsule (300 mg total) by mouth 2 (two) times a day. Active sertraline (ZOLOFT) 50 mg tablet Take 1 tablet (50 mg total) by mouth 1 (one) time each day. Active LATANOPROST OPHT apply to the eye. Active selenium 50 mcg tablet Selenium 100 MCG Cap Take 1 Capsule by mouth daily for 60 days. Active ondansetron ODT (ZOFRAN-ODT) 4 mg disintegrating tablet Dissolve 1 tablet (4 mg total) on top of the tongue every 8 (eight) hours if needed for nausea. Ondansetron 4 MG FILM Active pantoprazole (PROTONIX) 40 mg EC tablet TAKE 1 TABLET BY MOUTH EVERY DAY 90 tablet 2 12/14/19 25 Active ferrous sulfate 325 mg (65 mg iron) EC tabletIndications: Postgastrectomy malabsorption TAKE 1 TABLET BY MOUTH ONCE DAILY. DO NOT CRUSH, CHEW, OR SPLIT 90 tablet 2 03/04/20 25 Active phentermine 15 mg capsuleIndications :Class 1 obesity due to excess calories with body mass index (BMI) of 32.0 to 32.9 in adult, unspecified whether serious comorbidity present Take 1 capsule (15 mg total) by mouth 1 (one) time each day before breakfast. Max Daily Amount: 15 mg 30 each 04/09/20 25 025 Active naltrexone (DEPADE) 50 mg tabletIndications: Class 1 obesity due to excess calories with body mass index (BMI) of 32.0 to 32.9 in adult, unspecified whether serious comorbidity present Take 0.5 tablets (25 mg total) by mouth 1 (one) time each day. 15 each 04/15/20 25 025 Active buPROPion XL (WELLBUTRIN XL) 150 mg 24 hr tabletIndications: Class 1 obesity due to excess calories with body mass index (BMI) of 32.0 to 32.9 in adult, unspecified whether serious comorbidity present TAKE 1 TABLET (150 MG TOTAL) BY MOUTH EVERY DAY DO NOT CRUSH,CHEW, OR SPLIT 90 tablet 1 05/09/20 25 Active buPROPion XL (WELLBUTRIN XL) 150 mg 24 hr tabletIndications: Class 1 obesity due to excess calories with body mass index (BMI) of 32.0 to 32.9 in adult, unspecified whether serious comorbidity present Take 1 tablet (150 mg total) by mouth 1 (one) time each day. Do not crush, chew, or split. 30 each 04/15/20 25 025 Discontin ued(Reord er) Active Problems Problem Noted Date Diagnosed Date Class 1 obesity without seri ous comorbidity with body mass index (BMI) of 32.0 to 32.9 in adult 07/19/2024 Prediabetes 06/06/2019 Encounters Date Type Department Care Team Description 04/16/2025 8:00 AM EDT Telemedicine Bariatric Surgery - [address] [phone] Class 1 obesity without serious comorbidity with body mass index (BMI) of 32.0 to 32.9 in adult, unspecified obesity type (Primary Dx) 04/15/2025 Telephone Bariatric Surgery [address] [phone] Leeann Higgins MD Medication Reaction (Phetermine 15MG) 04/09/2025 9:00 AM EDT Office Visit Bariatric Surgery [address] [phone] Leeann Higgins MD Class 1 obesity due to excess calories with body mass index (BMI) of 32.0 to 32.9 in adult, unspecified whether serious comorbidity present (Primary Dx); Postgastrectomy malabsorption from Last 3 Months Social History Tobacco Use Types Packs/Day Years Used Date Smoking Tobacco: Never Smokeless Tobacco: Never Comments Unknown Sex and Gender Information Value Date Recorded Sex Assigned at Not on file Legal Sex Female 6:16 AM EST Gender Identity Not on file Sexual Orientation Not on file Obstetrics History Last Filed Vital Signs Vital Sign Reading Time Taken Comments Blood Pressure 104/68 04/09/2025 9:04 AM EDT Pulse 60 04/09/2025 9:04 AM EDT Temperature 36.6 C (97.8 F) 04/09/2025 9:04 AM EDT Respiratory Rate - - Oxygen Saturation - - Inhaled Oxygen Concentration - - Weight 77.6 kg (171 lb) 04/16/2025 8:00 AM EDT Height 154.9 cm (5' 1 ) 04/09/2025 9:04 AM EDT Body Mass Index 32.31 04/09/2025 9:04 AM EDT Plan of Treatment Upcoming Encounters Date Type Department Care Team (Late st Contact Info) Description 07/11/2025 8:30 AM EDT Nutrition Bariatric Surgery [address] [phone] Kesha Orozco, RD [address] [phone] 08/20/2025 9:00 AM EST Office Visit Bariatric Surgery [address] [place] [id number] Leeann Higgins MD 175 [facility] [address] [place] [address] Health Maintenance Due Date Last Done Comments Cervical Cancer Screening: Pap Smear 1980 Colorectal Cancer Screening: Colonoscopy 09/25/2022 Hepatitis C Screening 09/25/2022 Medicare Annual Wellness Visit 09/25/2022 Osteoporosis Screening (Bone Density Screening) 09/25/2022 Social Influencers of Health Screening 09/25/2022 Breast Cancer Screening 02/05/2023 02/05/2021, 02/05 Falls Risk Assessment 2024 Depression Screening 10/17/2024 COVID-19 Vaccine ( season) 2024 06/26/2024, 08/11/2023, 06/30/2022, Additional history exists Influenza Vaccine (#1) 2025 , 05/23/2023, 06/26/2022, Additional history exists Cholesterol Screening (Lipid Panel) 05/11/2027 05/11/2022 DTaP,Tdap,and Td Vaccines (3 - Td or Tdap) 09/29/2030 09/29/2020, 08/23/2012 Zoster Vaccines Completed 06/20/2021, 03/18, 08/23/2012 Pneumococcal Vaccine: 50+ Years Completed 04/06/2023 RSV Immunization Adult Patients Completed 06/07/2023 HIB Vaccines Aged Out No longer eligi ble based on patient's age to complete this topic HPV Vaccines Aged Out No longer eligi ble based on patient's age to complete this topic Hepatitis A Vaccines Aged Out No long er eligible based on patient's age to complete this topic Hepatitis B Vaccines Aged Out No long er eligible based on patient's age to complete this topic IPV Vaccines Aged Out No longer eligi ble based on patient's age to complete this topic MMR Vaccines Aged Out No longer eligi ble based on patient's age to complete this topic Meningococcal ACWY Vaccine Aged Out N o longer eligible based on patient's age to complete this topic Meningococcal B Vaccine Aged Out No l onger eligible based on patient's age to complete this topic RSV Immunization Patients Under 20 months Aged Out No longer eligible based on patient's age to complete this topic Varicella Vaccines Aged Out No longer eligible based on patient's age to complete this topic Procedures Procedure Name Priority Date/Time Associated Diagnosis Comments HEMOGLOBIN A1C Routine 04/09/2025 9:29 AM EDT Class 1 obesity due to excess calories with body mass index (BMI) of 32.0 to 32.9 in adult, unspecified whether serious comorbidity present VITAMIN B6 Routine 04/09/2025 9:29 AM EDT Postgastrectomy malabsorption VITAMIN D 25 HYDROXY Routine 04/09/2025 9:29 AM EDT Postgastrectomy malabsorption ZINC Routine 04/09/2025 9:29 AM EDT Postgastrectomy malabsorption VITAMIN B12 Routine 04/09/2025 9:29 AM EDT Postgastrectomy malabsorption VITAMIN B1 Routine 04/09/2025 9:29 AM EDT Postgastrectomy malabsorption VITAMIN A Routine 04/09/2025 9:29 AM EDT Postgastrectomy malabsorption SELENIUM SERUM Routine 04/09/2025 9:29 AM EDT Postgastrectomy malabsorption PARATHYROID HORMONE INTACT Routine 04/09/2025 9:29 AM EDT Postgastrectomy malabsorption IRON AND TIBC Routine 04/09/2025 9:29 AM EDT Postgastrectomy malabsorption FOLATE Routine 04/09/2025 9:29 AM EDT Postgastrectomy malabsorption COPPER, SERUM Routine 04/09/2025 9:29 AM EDT Postgastrectomy malabsorption CALCIUM Routine 04/09/2025 9:29 AM EDT Postgastrectomy malabsorption ALBUMIN Routine 04/09/2025 9:29 AM EDT Postgastrectomy malabsorption LIPID PANEL Routine 05/11/2022 from Last 3 Months or Most Recently Relevant to Health Maintenance Results * Iron and TIBC (04/09/2025 9:29 AM EDT) Iron 96 40 - 150 mcg/dL LAB CHEMISTRY METHOD 04/09/2025 4:59 PM EDT [facility] TIBC 387 250 - 450 mcg/dL LAB CHEMISTRY METHOD 04/09/2025 4:59 PM EDT [facility] Iron Saturation 25 15 - 50 % LAB CHEMISTRY METHOD 04/09/2025 4:59 PM EDT [facility] Blood Venous blood specimen / Unknown Venipuncture / Unknown 04/09/2025 9:29 AM EDT 04/09/2025 9:29 AM EDT us Leeann Higgins MD LAB BLOOD ORDERABLES Final R esult [facility] [address] [place] [address], * Copper, serum (04/09/2025 9:29 AM EDT) Copper 956 810 - 1990 ug/L 04/15/2025 9:10 AM EDT [facility] Comment: Copper values may be elevated to twice the normal levels in . Elevated results may be due to sample collected in a non-certified trace element-free tube. This test was developed and the performance characteristics determined by [facility]. It has not been cleared or approved by the FDA. The laboratory is regulated under CLIA as qualified to perform high-complexity testing. This test is used for patient testing purposes. It should not be regarded as investigational or for research. Test performed at [facility], [address], [place] [address] Verna Quintero MD, PhD - Senior Network Security Engineer Blood Venous blood specimen / Unknown Venipuncture / Unknown 04/09/2025 9:29 AM EDT 04/09/2025 9:29 AM EDT us Leeann Higgins MD LAB BLOOD ORDERABLES Final R esult Performing Organization Address City/[facility]/ZIP Co de Phone Number [facility] [address] [place] [address] * Zinc (04/09/2025 9:29 AM EDT) Zinc 100 60 - 130 ug/dL 04/12/2025 10:47 AM EDT [facility] Comment: Elevated results may be due to sample collected in a non-certified trace element-free tube. This test was developed and the performance characteristics determined by [facility]. It has not been cleared or approved by the FDA. The laboratory is regulated under CLIA as qualified to perform high-complexity testing. This test is used for patient testing purposes. It should not be regarded as investigational or for research. Test performed at [facility], [address] [place] [address] Verna Quintero MD, PhD - Senior Network Security Engineer Blood Venous blood specimen / Unknown Venipuncture / Unknown 04/09/2025 9:29 AM EDT 04/09/2025 9:29 AM EDT us Leeann Higgins MD LAB BLOOD ORDERABLES Final R esult Performing Organization Address City/[facility]/ZIP Co de Phone Number [facility] [address] [place] [address] * Vitamin A (04/09/2025 9:29 AM EDT) Vitamin A 45 38 - 106 ug/dL 04/15/2025 7:15 AM EDT [facility] Comment: This test was developed and the performance characteristics determined by [facility]. It has not been cleared or approved by the FDA. The laboratory is regulated under CLIA as qualified to perform high-complexity testing. This test is used for patient testing purposes. It should not be regarded as investigational or for research. Test performed at [facility], [address] , [place] [address] Verna Quintero MD, PhD - Senior Network Security Engineer Blood Venous blood specimen / Unknown Venipuncture / Unknown 04/09/2025 9:29 AM EDT 04/09/2025 9:29 AM EDT us Leeann Higgins MD LAB BLOOD ORDERABLES Final R esult Performing Organization Address City/[facility]/ZIP Co de Phone Number [facility] [address] [place] [address] * (ABNORMAL) Selenium serum (04/09/2025 9:29 AM EDT) Selenium 261(H) 63 - 160 mcg/L 04/13/2025 8:50 PM EDT [facility] Comment: THIS RESULT HAS BEEN VERIFIED BY REPEAT ANALYSIS. This test was developed and its analytical performance characteristics have been determined by [facility] [place] [place]. It has not been cleared or approved by the U.S. Food and Drug Administration. This assay has been validated pursuant to the CLIA regulations and is used for clinical purposes. Test Performed by [facility], [facility], [address] [place] [address] Sea Daniel M.D., Ph.D., Director of Laboratories , CLIA [id number] Blood Venous blood specimen / Unknown Venipuncture / Unknown 04/09/2025 9:29 AM EDT 04/09/2025 9:29 AM EDT us Leeann Higgins MD LAB BLOOD ORDERABLES Final R esult Performing Organization Address City/[facility]/ZIP Co de Phone Number [facility] [address] [place] [address] * Vitamin D 25 hydroxy (04/09/2025 9:29 AM EDT) [facility] Vit D, 25-Hydroxy 35.0 30.0 - 80.0 ng/mL LAB CHEMISTRY METHOD 04/09/2025 5:12 PM EDT [facility] Blood Venous blood specimen / Unknown Venipuncture / Unknown 04/09/2025 9:29 AM EDT 04/09/2025 9:29 AM EDT Leeann Higgins MD LAB BLOOD ORDERABLES Final R esult [facility] [address] [place] [address], [place] [phone] * Vitamin B1 (04/09/2025 9:29 AM EDT) [facility] Vitamin B1 Whole Blood 79 38 - 122 ug/L 04/15/2025 7:24 AM EDT [facility] Comment: This test was developed and the performance characteristics determined by [facility]. It has not been cleared or approved by the FDA. The laboratory is regulated under CLIA as qualified to perform high-complexity testing. This test is used for patient testing purposes. It should not be regarded as investigational or for research. Test performed at [facility], [address], [place] [address] Verna Quintero MD, PhD - Senior Network Security Engineer Blood Venous blood specimen / Unknown Venipuncture / Unknown 04/09/2025 9:29 AM EDT 04/09/2025 9:29 AM EDT Leeann Higgins MD LAB BLOOD ORDERABLES Final R esult [facility] [address] [place] [address] * (ABNORMAL) Vitamin B6 (04/09/2025 9:29 AM EDT) [facility] Vitamin B6 (Pyridoxine) Level 82(H) 5 - 50 ug/L 04/15/2025 12:18 PM EDT [facility] Comment: This test was developed and the performance characteristics determined by [facility]. It has not been cleared or approved by the FDA. The laboratory is regulated under CLIA as qualified to perform high-complexity testing. This test is used for patient testing purposes. It should not be regarded as investigational or for research. Test performed at [facility], [address] , [place] [address] Verna Quintero MD, PhD - Senior Network Security Engineer Blood Venous blood specimen / Unknown Venipuncture / Unknown 04/09/2025 9:29 AM EDT 04/09/2025 9:29 AM EDT Leeann Higgins MD LAB BLOOD ORDERABLES Final R esult [facility] [address] [place] [address] * Parathyroid hormone intact (04/09/2025 9:29 AM EDT) [facility] PTH 39.2 18.5 - 88.0 pcg/mL LAB CHEMISTRY METHOD 04/09/2025 5:12 PM EDT [facility] Blood Venous blood specimen / Unknown Venipuncture / Unknown 04/09/2025 9:29 AM EDT 04/09/2025 9:29 AM EDT Leeann Higgins MD LAB BLOOD ORDERABLES Final R esult [facility] [address] [place] [address], [place] [phone] * Hemoglobin A1c (04/09/2025 9:29 AM EDT) [facility] Hemoglobin A1C 6.1 <6.5 % LAB CHEMISTRY METHOD 04/09/2025 8:43 PM EDT [facility] Mean Bld Glu Estim. 128 mg/dL LAB CHEMISTRY METHOD 04/09/2025 8:43 PM EDT [facility] Blood Venous blood specimen / Unknown Venipuncture / Unknown 04/09/2025 9:29 AM EDT 04/09/2025 9:29 AM EDT us Leeann Higgins MD LAB BLOOD ORDERABLES Final R esult Performing Organization Address City/[facility] Co de Phone Number [facility] [address] [place] [address], [place] [phone] * Folate (04/09/2025 9:29 AM EDT) Pathologist [facility] Folate 12.1 2.8 - 17.0 ng/ml LAB CHEMISTRY METHOD 04/09/2025 4:58 PM EDT [facility] Blood Venous blood specimen / Unknown Venipuncture / Unknown 04/09/2025 9:29 AM EDT 04/09/2025 9:29 AM EDT us Leeann Higgins MD LAB BLOOD ORDERABLES Final R esult Performing Organization Address [facility] Co de Phone Number [facility] [address] [place] [address], [place] [phone] * Vitamin B12 (04/09/2025 9:29 AM EDT) Pathologist [facility] Vitamin B-12 652 250 - 900 pcg/mL LAB CHEMISTRY METHOD 04/09/2025 6:44 PM EDT [facility] Blood Venous blood specimen / Unknown Venipuncture / Unknown 04/09/2025 9:29 AM EDT 04/09/2025 9:29 AM EDT us Leeann Higgins MD LAB BLOOD ORDERABLES Final R esult [facility] [address] [place] [address], [place] [phone] * Calcium (04/09/2025 9:29 AM EDT) [facility] Calcium 9.0 8.5 - 10.5 mg/dL LAB CHEMISTRY METHOD 04/09/2025 4:45 PM EDT [facility] Blood Venous blood specimen / Unknown Venipuncture / Unknown 04/09/2025 9:29 AM EDT 04/09/2025 9:29 AM EDT us Leeann Higgins MD LAB BLOOD ORDERABLES Final R esult Performing Organization Address City/[facility]/ZIP Co de Phone Number [facility] [address] [place] [address], [place] [phone] * Albumin (04/09/2025 9:29 AM EDT) [facility] Albumin 3.7 3.2 - 5.0 g/dL LAB CHEMISTRY METHOD 04/09/2025 4:45 PM EDT [facility] Blood Venous blood specimen / Unknown Venipuncture / Unknown 04/09/2025 9:29 AM EDT 04/09/2025 9:29 AM EDT us Leeann Higgins MD LAB BLOOD ORDERABLES Final R esult [facility] [address] [place] [address], [place] [phone] * (ABNORMAL) Lipid panel (05/11/2022) [facility] LDL/HDL Ratio 4 0 - 4 Triglycerides 77 0 - 150 mg/dL Cholesterol 216(A) 0 - 200 mg/dL HDL 57 >=40 mg/dL LDL Cholesterol 144(A) 0 - 100 mg/dL Blood Venous blood specimen / Unknown us Historical Provider LAB BLOOD ORDERABLES Jennifer l Result from Last 3 Months or Most Recently Relevant to Health Maintenance Insurance [facility] Member Subscriber Plan / Payer (Ef fective 2020-Present) Name:Michael Carlson Relation to Subscriber:Self Name:Michael Slade Payer ID:[id number] Group ID:[id number] Type:Not on file Address: [place] [address] [address] [id number] Care Teams Director Translational Relationship Specialty Start Date End Date Nidhi Osei MD [address] [place] [address] PCP - General Internal Medicine 12/16/21
== END 2025-05-13 12:18 | disposition home or self-care (01) ==
LOC: HO.HOS 11:34
PROVIDERS: Visit Provider Physician Assistant
DX: Z47.89 Encounter for other orthopedic aftercare (principal); Z96.652 Presence of left artificial knee joint
CPT/HCPCS: 99213; G2211

== ENCOUNTER → 2025-05-13 11:38 | Outpatient (BNV) | payer OTHER, SELFPAY | PROVIDERS: Visit Provider Radiology Diagnostic Radiology | DX: M25.562 Pain in left knee (principal) | CPT/HCPCS: 73562 ==

== ENCOUNTER 2025-08-14 08:56 | Outpatient (REF) | payer OTHER, SELFPAY ==
--- NOTE | ~2025-08-14 | XR_ITS ---
EXAMINATION: XR KNEE 3 VIEWS LEFT HISTORY: M25.562 - Pain in left knee COMPARISON: Comparison is made with the prior examination dated 05/13/2025. FINDINGS: Standing AP views of both knees and additional lateral and sunrise patellar views of the left knee are submitted. The patient is again noted to be status post total knee arthroplasty. The hardware is intact and unchanged in appearance. There is no fracture or dislocation. There is severe osteoarthritis of the medial compartment of the right knee, with joint space narrowing and osteophyte formation. The soft tissues are unremarkable. There is no joint effusion. XR/XR knee LT 3V IMPRESSION: Status post left total knee arthroplasty. Electronically signed by: Miguelito Kitchen MD 08/14/2025 09:18 AM EDT
--- OUTSIDE RECORDS SUMMARY | 2025-08-15 09:58 | XMS_ITS | Data Portability ---
Author Organization [facility], Main Office Address [address] [place] [address] Care Team Providers Care Sheepskin Pickler Name Role Phone [facility] OTHER [phone] Assessment Encounter Date Assessment Date Assessment LastModified by Organization Details LastModified Time 08/17/2024 08/17/202408/17: wbc 5.27, hgb 10, hct 30.8, na 142, k 3.8, bun 3, creat 0.40 glord Not available 08/17/2024 10:25:28 08/21/2024 08/21/202408/17: wbc 5.27, hgb 10, hct 30.8, na 142, k 3.8, bun 3, creat 0.40 glord Not available 08/21/2024 10:39:32 08/23/2024 08/23/202408/17: wbc 5.27, hgb 10, hct 30.8, na 142, k 3.8, bun 3, creat 0.40 [email or web address] Not available 08/23/2024 13:44:03 08/24/2024 08/24/202408/17: wbc 5.27, hgb 10, hct 30.8, na 142, k 3.8, bun 3, creat 0.40 [email or web address] Not available 08/24/2024 20:43:35 Plan of Treatment Reminders Order Date Submit Date Provider Last Modified By Organization Details Last Modified Time Details Appointments None record ed. Lab None record ed. Referral None record ed. Procedures None record ed. Surgeries None record ed. Imaging None record ed. Medication Orders None record ed. Patient TargetsNo targets recorded. Patient InstructionsNo instructions recorded. Reason for Referral None Reported. Problems Name Problem SNOMED Code Status Onset Date Resolution Date Notes Provider Name and Address Organization Details Recorded Time Morbid obesity 375020588 Active [address], [address], [place], [address], [facility] 4 10:02:37 Osteoarthritis 917208978 Active 2023 PHOE[address] LORD [address], [address], [place], [address], [facility] 4 09:59:38 Lumbar radiculopathy 024621699 Active [address], [address], [place], [address], [facility] 4 10:02:35 Sacroiliac disorder 749744333 Active [address]23 [address]AS [address], [address], [place], [address], [facility] 4 10:02:40 Gastroesophage al reflux disease without esophagitis 341796069 Active 2023 [address]AS [address], [address], [place], [address], [facility] 4 10:03:24 Depressive disorder 10150622 Active 2023 PH[address] VARGAS [address], [address], [place], [address], [facility] 4 10:04:04 Low back pain 042920410 Active 2023 Dian Wise MD [address], [address], [place], [address], [facility] 4 21:14:58 Body mass index 30+ - obesity 029751181 Active 2023 Dian Wise MD [address], [address], [place], [address], [facility] 4 21:19:38 Anemia 647206303 Active 2023 Dian Wise MD [address], [address], [place], [address], [facility] 4 21:20:06 Problem Notes None recorded. Medical Equipment None Reported. Allergies No known drug allergies Vitals Date Recorded Body temperature Heart rate Oxygen saturation Oxygen saturation in Arterial blood by Pulse oximetry Respiratory rate Systolic And Diastolic Provider Name and Address Organization Details Last Updated DateTime 4 97.8 [degF] 72 /min 96 % 96 % 16 /min 128/78 mm[Hg] PHOEBE[address], [facility] [address], [place], [address], [facility] 4 10:08:24 Date Recorded Systolic And Diastolic Provider Name and Address Organization Details Last Updated DateTime 08/21/2024 110/74 mm[Hg] [address], [facility] [address], [place], [address], [facility] 08/21/2024 10:37:22 Date Recorded Body height Body mass index (BMI) Body weight Heart rate Respiratory rate Body temperature Oxygen saturation Oxygen saturation in Arterial blood by Pulse oximetry Systolic And Diastolic Provider Name and Address Organization Details Last Updated DateTime 4 154.94 cm 31.6 kg/m2 64967.9 3 g 65 /min 17 /min 97.8 [degF] 97 % 97 % 111/65 mm[Hg] Dian Wise MD [address] [place] [address] [address], [place], [address], [facility] 20:26:03 Social History Question Answer Notes LastModified by Organizat ion Details LastModified Time Tobacco Smoking Status Never Smoker [address], [place], [address], [facility] 08/17/2024 10:00:14 Do You Have An Advance Directive? Yes Information not available 08/24/2024 What Is Your Code Status? DNR/DNI Information not available 08/24/2024 Where Do You Live? Apartment Alone, Handicapped Accessible Information not available 08/24/2024 Legal Guardian? No Informati on not available 08/24/2024 Do You Have A Medical Power Of Air Pollution Inspector? Yes Information not available 08/24/2024 What Was The Date Of Your Most Recent Tobacco Screening? 08/24/2024 Information not available 08/24/2024 Do You Have An Out Of Hospital DNR? Yes Information not available 08/24/2024 What Is Your Relationship Status? Information not available 08/24/2024 Has Tobacco Cessation Counseling Been Provided? No Information not available 08/17/2024 Sex: Unknown Functional Status Question Answer Note LastModified by Organizat ion Details LastModified Time Do you use any illicit or recreational drugs? No Information not available 08/17/2024 Do you or have you ever used any other forms of tobacco or nicotine? No Information not available 08/17/2024 What is your level of alcohol consumption? None Information not available 08/17/2024 Mental Status None recorded. Family History Relationship Description Onset Age of this Age Resolved Age Notes LastModified by Organization Details LastModified Time Father No current problems or disability glord Not available 08/17 10:00:14 Mother No current problems or disability glord Not available 08/17 10:00:14 Notes:n/c Medical History No medical history recorded. Gynecological HistoryNo gynecological history recorded. Obstetrics History GPAL:G 0 P 0 0 0 0 Immunizations Vaccine Type Date Status Note Provider Nam e and Address Organization Details Recorded Time Respiratory syncytial virus (RSV) vaccine, unspecified 3 completed Caroline Riddle [facility] 08/17/2024 15:56:58 Tdap 2 completed Caroline Riddle [facility] 08/17/2024 15:57:14 Td(adult) unspecified formulation 0 completed Caroline Riddle [facility] 08/17/2024 15:57:26 Pneumococcal conjugate PCV 13 3 completed Caroline Riddle [facility] 08/17/2024 15:57:44 influenza, unspecified formulation 2 completed Caroline Riddle [facility] 08/17/2024 15:58:02 influenza, unspecified formulation 3 completed Caroline Riddle [facility] 08/17/2024 15:58:10 influenza, unspecified formulation 4 completed Caroline Venkatesh [facility] 08/17/2024 15:58:17 SARS-COV-2 (COVID-19) vaccine, UNSPECIFIED 1 completed [facility]24 15:58:31 SARS-COV-2 (COVID-19) vaccine, UNSPECIFIED 1 completed Caroline Venkatesh [facility] 08/17/2024 15:58:39 SARS-COV-2 (COVID-19) vaccine, UNSPECIFIED 1 completed Caroline Venkatesh [facility] 08/17/2024 15:58:46 SARS-COV-2 (COVID-19) vaccine, UNSPECIFIED 2 completed Caroline Venkatesh [facility] 08/17/2024 15:58:53 SARS-COV-2 (COVID-19) vaccine, UNSPECIFIED 2 completed Caroline Venkatesh [facility] 08/17/2024 15:59:04 SARS-COV-2 (COVID-19) vaccine, UNSPECIFIED 3 completed Caroline Venkatesh [facility] 08/17/2024 15:59:12 SARS-COV-2 (COVID-19) vaccine, UNSPECIFIED 4 completed Caroline Venkatesh [facility] 08/17/2024 15:59:20 zoster, unspecified formulation 2 completed Caroline Venkatesh [facility] 08/17/2024 15:59:33 zoster, unspecified formulation 1 completed [facility] 08/17/2024 15:59:40 zoster, unspecified formulation 4 completed Caroline Venkatesh [facility] 08/17/2024 15:59:54 Past Encounters Encounter ID Performer Location Encounter Start Date Encounter Closed Date Diagnosis/Indication Diagnosis SNOMED-CT Code Diagnosis ICD10 Code Diagnosis IMO Codes Diagnosis Note [id number] [facility] [address] [place] [address] 08/17/2024 09:57:45 08/20/2024 09:25:46 Osteoarthritis 791545986 M19.90 of bilateral kneess.p L total kneePT/OT eval and treatconti nue oxycodone 5 mgcelebrex 200 mg BIDlovenox 40 mg dailygabap entin as needed- odd order, would consider DC as it takes time to be therapeuti c Gastroesop hageal reflux disease without esophagitis 051669328 K21.9 pantoprazo le 20 mg dailyfamot idine 40 mg dailymonit or for reflux Depressive disorder 3548 9007 F32.A zoloft 75 mg dailymonit or mood Constipation 17126735 K5 9.00 colace 100 mg TIDmonitor bowels Morbid obesity 460569201 E66.01 dietary to eval [id number] PHOEBETRAY Philippe at [facility] on [address] [place] [address] 08/21/2024 10:35:57 08/22/2024 12:14:49 Osteoarthritis 122396069 M19.90 see HPI, recovering slowlycont inue PTcontinue oxycodone 5 mgcelebrex 200 mg BIDlovenox 40 mg dailyice as neededenco urage doing things on her own while in roomfollow up with ortho on 08/30 [id number] SAÚL VELASQUE[facility]C [facility] on [address] [place] [phone] 08/23/2024 12:59:32 08/24/2024 12:29:30 Osteoarthritis 216231167 M19.90 of bilateral kneess.p L total kneecontin ue PT OTplan for dc home with services and PT on satsched tylenol 1000 mg po tidstart lidocaine patch to kneedc oxy = pt agreeablec elebrex 200 mg BIDlovenox 40 mg daily (no end date = pt is ambulatory consider dc)ortho f/up 08/30 Low back pain 947497208 M54.50 having low back pain dt therapy and bed positionin gstart lidocaine patch to lower back [id number] MD Griffin [facility] on [address] [place] [address] 08/24/2024 20:02:35 08/27/2024 11:15:39 Osteoarthritis 381639794 M15.0 Z96.652 Recovering well, but still with deficits, a little nervous about going home.Rios nue APAP 1000 mg TID, lidocaine patch left knee, celebrex 200 mg BID, and oxy 5 mg q 4 hrs prn.Contin ue lovenox 40 mg sq qd for 4-6 wks postop (will discuss with ortho on 08/30)Will continue PT/OT at home.F/U with ortho on 08/30 Low back pain 450224012 M54.59 Continue meds as above and lidocaine patch qd.PT will eval as outpt.F/U with PCP on 08/27 as planned Gastroesop hageal reflux disease without esophagitis 785300077 K21.9 No current sxs.S/P gastric bypass.Con tinue pantoprazo le 20 mg qd and famotidine 40 mg qdF/U as outpt. Depressive disorder 3548 9007 F33.8 Mood good tonight.Co ntinue sertraline 75 mg qdF/U as outpt. Constipation 05988237 K5 9.09 moving bowels well at this time.Rios nue meds prn.F/U as outpt. Anemia 935141997 D62 Improving since here.Didn' t drop very much post-op.CO ntinue to push fluids and monitor as outpt. Body mass index 30+ - obesity 950661954 E66.89 Has lost almost 90# since gastric bypass.Con tinue healthy eating.F/U with PCP Health Concerns Section Related Observation LastModified by Organization Detai ls LastModified Time None Recorded Concern Status LastModified by Organization Details LastModified Time None Recorded Advance Directives Directive Y: Payers Insurance Date Sequence Insurance Name Policy Number Policy Wick Covered Member ID Wick Member ID Guarantor Name 08/17/2024 1 [facility] - DOS ON OR AFTER 2023 - MEDICARE ADVANTAGE [place] (MEDICARE REPLACEMENT/ADV ANTAGE - PPO) [employer] [id number] [employer] Notes Date Note Type Note Provider Name and Address Organization Details Recorded Time 08/17/2024 text/html This is a 63 year old female seen today for initial intake visit. Patient presented to [facility] for elective left total knee arthroplasty. She tolerated the procedure well, labs unremarkable and pain controlled with oxycodone. She was evaluated by PT and felt she could benefit from STR. Admitted to facility for continued care and therapy PHOEBE [address] [facility], [place], [address], [facility] 08/17/2024 10:50:27 08/21/2024 text/html This is a 63 year old female seen today for acute rounding visit. Patient here for rehab after elective left total knee arthroplasty. Her therapy has gone very slow due to numbess and limited ROM of left knee due to swelling. PT reports she is making small improvements, on exam she appears stable with no concerns.We discussed small things she can do to help like elevating above her heart and working on movements while resting in her room. PHOEBE VARGAS [address] [place] [address], [address], [place], [address], [facility] 08/21/2024 10:41:25 08/23/2024 text/html This is a 63 year old female seen today for acute rounding visit. Patient here for rehab after elective left total knee arthroplasty. Her therapy has gone very slow due to numbness and limited ROM of left knee due to swelling. PT reports she is making small improvements, on exam she appears stable with no concerns.We discussed small things she can do to help like elevating above her heart and working on movements while resting in her room. Patient seen today, Nursing reports she is doing well and will likely go home soon. She is pain controlled using tylenol. She occasionally will use oxycodone but is trying to stay away from it due to it causing her constipation in the past. Shes having normal BMs using senna and fiber daily and would like to continue. She is regularly using tylenol every 6 hours, will schedule it and dc the oxy as she hasnt used it in several days. ZULEYMA VELASQUEZ [address] [facility], [address], [place], [address], [facility] 08/23/2024 14:29:16 08/24/2024 text/html This is a 63 yo woman who is here for rehab after an elective left TKKR for ESOA unresponsive to conservative tx.She was brought to the OR by Dr. Kanh on 08/14 at [facility].She tolerated procedure well, but post-op had trouble regaining sensation in legs. She was seen by medicine for consult, but no acute findings and sxs improved, although she continued to have RLE numbness.Her hgb dropped from 13.6 to 10.6 as expected postop, no transfusion needed.She was transferred here on 08/16. Since here she has done well with rehab, although it was slow at first, and is going home tomorrow.She is using APAP, celebrex and lidocaine patch for pain. She is avoiding oxy.We discuss that it is ok to use, skinny at hs to help with sleep. She says she may try it and would like to take it home just in case.She says her low back is hurting also, but thinks it will get better when she is in her own bed.She will be going home tomorrow with VNA services due to homebound status. Her PMH includes AODM diet controlled, s/p gastric bypass, GERD, OA s/p LTKR, lumbar radiculopathy, and depression. Dian Wise MD [address] [facility], [address], [place], [address], [facility] [employer] 08/28/2024 10:03:15 OBGyn Episode No OBEpisode recorded.
--- OUTSIDE RECORDS SUMMARY | 2025-08-15 09:58 | XMS_ITS | Encounter Summary ---
Author Organization [facility] Address [address] [facility] [place] [address] Phone Care Team Providers Care Quality Control Inspector Heading Name Role Phone Kalen Osei MD Primary Care Prov ider Encounter Details Date Type Department Care Team (Late st Contact Info) Description 02/05/2021 Procedure Pass [facility], [address] [address] Social History Tobacco Use Types Packs/Day Years Used Date Smoking Tobacco: Never Smokeless Tobacco: Never Alcohol Use Standard Drinks/Week Comments No 0 (1 standard drink = 0.6 oz pur e alcohol) Comments No Sex and Gender Information Value Date Recorded Sex Assigned at Not on file Legal Sex Female 10:29 AM EDT Gender Identity Not on file Sexual Orientation Not on file documented as of this encounter Plan of Treatment Not on file documented as of this encounter Visit Diagnoses Not on filedocumented in this encounter Care Teams Quality Control Inspector Heading Relationship Specialty Start Date End Date Kalen Osei MD [address] [place] [phone] [email or web address] PCP - General Family Medicine 08/15/20 documented as of this encounter Additional Source Comments The information contained in this document represents components of the legal health record. It is not the complete legal health record.[facility]
--- OUTSIDE RECORDS SUMMARY | 2025-08-15 09:58 | XMS_ITS | Clinical Summary ---
Author Organization [facility] Address [address] [address] Phone Care Team Providers Care Coal Wheeler Name Role Phone Kalen Osei MD Primary Care Prov ider Allergies No known active allergies Medications sertraline (ZOLOFT) 50 MG tablet TAKE 1/2 TABLET BY MOUTH EVERY MORNING FOR 7 DAYS THEN 1 TAB DAILY 1 8 Active hydrOXYzine (VISTARIL) 25 MG capsule TAKE 1 CAPSULE BY MOUTH THREE TIMES A DAY NEEDED 0 8 Active gabapentin (NEURONTIN) 300 MG capsule [The details of the medication are not available because there are pending changes by a home health clinician.] 90 capsule 2 9 Active Additional Information Patient taking differently: Take 1 tablet daily, Reported on 09/21/2024 pantoprazole (PROTONIX) 40 MG tablet Take 40 mg by mouth daily. 4 Active famotidine (PEPCID) 40 MG tablet Take 40 mg by mouth daily. 4 Active enoxaparin (LOVENOX) 40 mg/0.4 mL Syrg subcutaneous syringe Inject 40 mg under the skin daily. 4 Active polyethylene glycol (MIRALAX) 17 gram packet Take 17 g by mouth daily as needed for moderate constipation. 4 Active celecoxib (CELEBREX) 200 MG capsule Take 200 mg by mouth 2 (two) times a day. 4 Active acetaminophen (TYLENOL) 500 MG tablet Take 1,000 mg by mouth every 8 (eight) hours as needed for pain (specific location in comments). 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 Sacroiliitis, not elsewhere classified 9 Morbid obesity with BMI of 45.0-49.9, adult 11/18 Cervical facet joint syndrome 12/06/2018 Bilateral primary osteoarthritis of knee 019 Bilateral knee pain 10/30/2018 Family History Medical History Relation Comments Diabetes Brother Heart attack Brother Stroke Brother No Known Problems Father Breast cancer Maternal Aunt No Known Problems Maternal Grandfather No Known Problems Maternal Grandmother No Known Problems Maternal Uncle No Known Problems Mother No Known Problems Paternal Aunt No Known Problems Paternal Grandfather No Known Problems Paternal Grandmother No Known Problems Paternal Uncle No Known Problems Sister Cancer Unspecified Diabetes Unspecified Heart disease Unspecified Hypertension Unspecified Infl. arthritis Unspecified Clotting disorder Neg Hx Collagen disease Neg Hx Depression Neg Hx Dislocations Neg Hx Gout Neg Hx Osteoporosis Neg Hx Scoliosis Neg Hx Relation Status Comments Brother Father Maternal Aunt Maternal Grandfather Maternal Grandmother Maternal Uncle Mother Paternal Aunt Paternal Grandfather Paternal Grandmother Paternal Uncle Sister Unspecified Social History Tobacco Use Types Packs/Day Years Used Date Smoking Tobacco: Never Smokeless Tobacco: Never Alcohol Use Standard Drinks/Week Comments No 0 (1 standard drink = 0.6 oz pur e alcohol) Home Health Assessment: Transportation Answer Date Recorded Lack of Transportation (Medical) No 09/21/2024 Lack of Transportation (Non-Medical) No 09/21/2024 Patient Unable or Declines to Respond No 09/21/2024 Education Answer Date Recorded Are you interested in more education? Not on raad e 02/11/2023 Are you concerned about learning? Not on file 02/11/2023 No 02/11/2023 No 02/11/2023 Digital Access Answer Date Recorded No 03/12/2023 No 03/12/2023 No 03/12/2023 Reliable internet access at home? Not on file 03/12/2023 Device with a working camera? Not on file Comments No Sex and Gender Information Value Date Recorded Sex Assigned at Not on file Legal Sex Female 10:29 AM EDT Gender Identity Not on file Sexual Orientation Not on file Last Filed Vital Signs Vital Sign Reading Time Taken Comments Blood Pressure 108/78 09/21/2024 10:58 AM EST Pulse 66 09/21/2024 10:58 AM EST Temperature 36.4 C (97.6 F) 09/21/2024 10:58 AM EST Respiratory Rate 18 09/12/2024 3:16 PM EST Oxygen Saturation 97% 09/21/2024 10:58 AM EST Inhaled Oxygen Concentration - - Weight 106.1 kg (234 lb) 03/21/2019 2:25 PM EDT Height 152.4 cm (5') 03/14/2019 2:38 PM EDT Body Mass Index 45.7 03/14/2019 2:38 PM EDT Plan of Treatment Health Maintenance Due Date Last Done Comments DEPRESSION SCREENING 1971 HIV ONE-TIME SCREENING (18-65 YEARS) 1977 COLOGUARD 2004 COLONOSCOPY 2004 COLORECTAL CANCER SCREENING 2004 FIT TEST 2004 FOBT 2004 SIGMOIDOSCOPY 2004 VIRTUAL COLONOSCOPY 2004 PNEUMOCOCCAL VACCINES (50+ years) (1 of 1 - PCV) 2009 RSV VACCINE (1 - Risk 50-74 years 1-dose series) 2009 MAMMOGRAM 02/05/2023 02/05/2021, 01/16, 08/07/2020, Additional history exists OSTEOPOROSIS SCREENING INITIAL (ONE-TIME) 2024 INFLUENZA VACCINE (#1) 2025 , 06/06/2020, 07/09/2019, Additional history exists COVID-19 VACCINE ( - 2024- season) 2025 01/01/2021, 12/11/2020 LIPID PANEL 05/11/2027 05/11/2022, 04/12/2019 Adult Td,Tdap Booster 09/29/2030 09/29/2020, 012 HEPATITIS C SCREENING Completed 08/16/2018 SMOKING STATUS SCREENING (Once After 26 Yrs) Completed 08/30/2019 ZOSTER VACCINES Completed 06/20/2021, 03/18, 08/23/2012 HEPATITIS A VACCINES Aged Out No long er eligible based on patient's age to complete this topic HIB VACCINES Aged Out No longer eligi ble based on patient's age to complete this topic MENINGOCOCCAL VACCINES (ACWY) Aged Out No longer eligible based on patient's age to complete this topic MENINGOCOCCAL VACCINES (B) Aged Out N o longer eligible based on patient's age to complete this topic Medical Devices Implanted Type Area Pyrotechnics Press Tender Device Identifier Shelf Expiration Date Model / Serial / Lot Marker Site Biopsy Stainless Steel [id number] - [id number] Implanted:Qty: 1 on 08/27/2020 by Bala Mittal MD at [facility] Left: Breast [id number] INC [id number] / / Procedures Procedure Name Priority Date/Time Associated Diagnosis Comments BI MAMMOGRAM DIAGNOSTIC WITH TOMOSYNTHESIS WITH CAD (BILATERAL) Routine 02/05/2021 11:27 AM EDT Calcification of breast from Last 3 Months or Most Recently Relevant to Health Maintenance Results * BI MAMMOGRAM DIAGNOSTIC WITH TOMOSYNTHESIS WITH CAD (BILATERAL) (02/05/2021 11:27 AM EDT) Anatomical Region Laterality Modality Breast Left, Breast Right, Breast Bilateral Bila teral Mammography 02/05/2021 11:2 8 AM EDT Addenda Addendum by Jostin Cotton MD on 02/12/2021 5:40 PM EDT ADDENDUM: Corrected report: Bilateral full-field digital diagnostic mammography is obtained and read in conjunction with computer-aided detection. Tomosynthesis as well as 2-D C view imaging of both breasts in two planes also obtained. Comparison made to available prior, most recent from stereotactic biopsy in August and is far back as outside study of October 2018. Ultrasound is also subsequently obtained and reported here No dominant mass, architectural distortion, or worrisome asymmetry is identified. No skin or nipple finding of concern is appreciated. There is decreased but residual calcification at the targeted cluster of calcifications in the left breast. The fact that this has changed appearance suggests at least some were likely present within some of the obtained stereotactic specimens. The marker remains considerably medial to the residual calcifications. There is no worrisome >><< progression of the calcification. A small lobulated density at the outer left breast, superficially near 2-3 o'clock, appears essentially unchanged. There is also a approximately 6 x 4 mm mass seen on mammography with slightly lobulated borders more centrally, and slightly more cranial. This is measures 6-7 mm corresponds well in size and position to the sonographic finding. This is very faint and appears to correspond to a benign-appearing cyst on subsequent mammography, and is likely present on the posterior imaging of August. Sonography elsewhere does not demonstrate any suspicious lesions. IMPRESSION: No mammographic change indicative of malignancy. A surveillance mammogram in 6 months to include magnification views recommended for the previous calcifications which do appear to have decreased in size and presumably some of the calcifications were included on the prior stereotactic biopsy although it is difficult to identify the specific sample in which the calcifications were present. . Biopsy result is probably reliable for exclusion of malignancy but continued surveillance is recommended. Small benign-appearing cystic lesion at 1:00 not evident on more remote studies which can be followed with screening mammography. Results and recommendation discussed with the patient at conclusion of sonography. BI-RADS CATEGORY: 3 - Probably benign finding. Short interval follow up suggested. DENSITY: There are scattered fibroglandular densities. LEFT RECOMMENDATION DUE DATE: 6 Months Left short interval follow-up RIGHT RECOMMENDATION DUE DATE: 12 Months Right Mammography Screening Impressions 02/05/2021 1:02 PM EDT No mammographic change indicative of malignancy. A surveillance mammogram in 6 months to include magnification views recommended for the previous calcifications which do appear to have decreased in size and presumably some of the calcifications were included on the prior stereotactic biopsy although it is difficult to identify the specific sample in which the calcifications were present. . Biopsy result is probably reliable for exclusion of malignancy but continued surveillance is recommended. Small benign-appearing cystic lesion at 1:00 not evident on more remote studies which can be followed with screening mammography. Results and recommendation discussed with the patient at conclusion of sonography. BI-RADS CATEGORY: 3 - Probably benign finding. Short interval follow up suggested. DENSITY: There are scattered fibroglandular densities. LEFT RECOMMENDATION DUE DATE: 6 Months Left short interval follow-up Narrative 02/05/2021 1:02 PM EDT Bilateral full-field digital diagnostic mammography is obtained and read in conjunction with computer-aided detection. Tomosynthesis as well as 2-D C view imaging of both breasts in two planes also obtained. Comparison made to available prior, most recent from stereotactic biopsy in August and is far back as outside study of October 2018. Ultrasound is also subsequently obtained and reported here No dominant mass, architectural distortion, or worrisome asymmetry is identified. No skin or nipple finding of concern is appreciated. There is decreased but residual calcification at the targeted cluster. The fact that this has changed appearance suggests at least some were likely present within some of the obtained stereotactic specimens. The marker remains considerably medial to the residual calcifications. There is no worrisome for some progression of the calcification. A small lobulated density at the outer left breast, near 2-3 appears essentially unchanged. There is also a approximately 6 x 4 mm mass seen on mammography with slightly lobulated borders near the 1:00 position. This is measures 6-7 mm corresponds well in size and position to the mammographic finding. This is very faint and appears to correspond to a benign-appearing cyst on subsequent mammography, and is likely present on the posterior imaging of August. Procedure Note Jostin Cotton MD - 02/05/2021 Bilateral full-field digital diagnostic mammography is obtained and readin conjunction with computer-aided detection. Tomosynthesis as well as2-D C view imaging of both breasts in two planes also obtained.Comparison made to available prior, most recent from stereotactic biopsyin August and is far back as outside study of October 2018. Ultrasoundis also subsequently obtained and reported here No dominant mass, architectural distortion, or worrisome asymmetry isidentified. No skin or nipple finding of concern is appreciated. There isdecreased but residual calcification at the targeted cluster. The factthat this has changed appearance suggests at least some were likelypresent within some of the obtained stereotactic specimens. The markerremains considerably medial to the residual calcifications. There is noworrisome for some progression of the calcification. A small lobulateddensity at the outer left breast, near 2-3 appears essentially unchanged.There is also a approximately 6 x 4 mm mass seen on mammography withslightly lobulated borders near the 1:00 position. This is measures 6-7 mmcorresponds well in size and position to the mammographic finding. This isvery faint and appears to correspond to a benign-appearing cyst onsubsequent mammography, and is likely present on the posterior imaging ofNovember. IMPRESSION: No mammographic change indicative of malignancy. A surveillance mammogramin 6 months to include magnification views recommended for the previouscalcifications which do appear to have decreased in size and presumablysome of the calcifications were included on the prior stereotactic biopsyalthough it is difficult to identify the specific sample in which thecalcifications were present. . Biopsy result is probably reliable forexclusion of malignancy but continued surveillance is recommended. Smallbenign-appearing cystic lesion at 1:00 not evident on more remote studieswhich can be followed with screening mammography. Results andrecommendation discussed with the patient at conclusion of sonography. BI-RADS CATEGORY: 3 - Probably benign finding. Short interval follow upsuggested. DENSITY: There are scattered fibroglandular densities. LEFT RECOMMENDATION DUE DATE: 6 Months Left short interval follow-up Kesha Mendiola MD IM MG EXAMS Edited Result - Final from Last 3 Months or Most Recently Relevant to Health Maintenance Insurance CARE MEDICARE REPLACEMENT [place] [id number] [facility] CARE MEDICARE REPLACEMENT ONE CARE MEDICARE REPLACEMENT CARE MEDICARE REPLACEMENT ONE CARE MEDICARE REPLACEMENT ONE CARE MEDICARE REPLACEMENT CARE MEDICARE REPLACEMENT ONE CARE MEDICARE REPLACEMENT [facility] ONE CARE MEDICARE REPLACEMENT Care Teams Coal Wheeler Relationship Specialty Start Date End Date Kalen Osei MD [address] [place] [phone] [email or web address] PCP - General Family Medicine 08/15/20 Additional Source Comments The information contained in this document represents components of the legal health record. It is not the complete legal health record.[facility]
--- OUTSIDE RECORDS SUMMARY | 2025-08-15 09:58 | XMS_ITS | Encounter Summary ---
Author Organization [facility] Address [address] [place] [address] [place] [address] Phone Care Team Providers Care Cloth Handler Name Role Phone Kalen Osei MD Primary Care Prov ider Kalen Osei MD Unavailable + Kalen Osei MD Primary Care Prov ider Encounter Details Date Type Department Care Team (Late st Contact Info) Description 02/22/2019 Procedure Pass [facility], [address] [address] Social History Tobacco Use Types Packs/Day Years [...] on filedocumented in this encounter Care Teams Cloth Handler Relationship Specialty Start Date End Date Kalen Osei MD [email or web address] PCP - General Family Medicine 10/18/18 08/14/20 Klaen Osei MD [address] [place] [phone] [email or web address] PCP - General Family Medicine 08/15/20 Kalen Osei MD [address] [place] [address] [email or web address] Insurance Assigned Provider 11/18/18 09/22/19 documented as of this encounter Additional Source Comments The information contained in this document represents components of the legal health record. It is not the complete legal health record.[facility]
--- OUTSIDE RECORDS SUMMARY | 2025-08-15 09:58 | XMS_ITS | Encounter Summary ---
Author Organization [employer] [facility] Address [address] [place] [address] Care Team Providers Care Evaluation Assistant Name Role Phone Unavailable Primary Care Provider Unavailabl e Encounter Details Date Type Department Care Team (Latest Contact Info) Description 03/02/2021 Abstract [facility] CONVERSIONS Dental, Provider, DDS Social History Tobacco [...] 1:30 PM EST Office Visit [facility] ADULT DENTAL [address] [place] [address] Marilu Leong documented as of this encounter Visit Diagnoses Not on filedocumented in this encounter
--- OUTSIDE RECORDS SUMMARY | 2025-08-15 09:58 | XMS_ITS | Encounter Summary ---
Author Organization [employer] [facility] Address [address] [place] [address] Care Team Providers Care Electrifier Operator Name Role Phone Unavailable Primary Care Provider Unavailabl e Encounter Details Date Type Department Care Team (Latest Contact Info) Description 09/03/2019 Abstract [facility] CONVERSIONS Dental, Provider, DDS Social History [...] Visit [facility] ADULT DENTAL [address] [place] [address] Marilu Leong documented as of this encounter Visit Diagnoses Not on filedocumented in this encounter
--- OUTSIDE RECORDS SUMMARY | 2025-08-15 09:58 | XMS_ITS | Encounter Summary ---
Author Organization [employer] [facility] Address [address] [facility] [address] [place] [address] Care Team Providers Care Community Placement Worker Name Role Phone Unavailable Primary Care Provider Unavailabl e Encounter Details Date Type Department Care Team (Latest Contact Info) Description 06/10/2022 Abstract [facility] CONVERSIONS Dental, Provider, DDS Social [...] Description 08/26/2025 1:30 PM EST Office Visit [facility] ADULT DENTAL [address] [place] [address] Marilu Leong documented as of this encounter Visit Diagnoses Not on filedocumented in this encounter
--- OUTSIDE RECORDS SUMMARY | 2025-08-15 09:58 | XMS_ITS | Clinical Summary ---
Author Organization [email or web address] [facility] Address [address] [place] [address] Care Team Providers Care Reverse Unit Operator Fisherman Name Role Phone Unavailable Primary Care Provider [...] Description 08/26/2025 1:30 PM EST Office Visit [facility] ADULT DENTAL [address] [place] [address] Marilu Leong Health Maintenance Due Date Last [...] Relevant to Health Maintenance Insurance D[facility]AL - [facility] [address] [place] [id number] [place] [address] [address] [place] [phone] [place] [id number]
--- OUTSIDE RECORDS SUMMARY | 2025-08-15 09:58 | XMS_ITS | Encounter Summary ---
Author Organization [facility] Address [address] [address] Phone Care Team Providers Care Fire Support Man Name Role Phone Kalen Osei MD Primary Care Prov ider Kalen Osei MD Unavailable + Kalen Osei MD Primary Care Prov ider Reason for Referral * Physical Therapy (Routine) - Closed Specialty Diagnoses / Procedures Referred By Diogenes perez Referred To Contact Physical Therapy Diagnoses Urinary incontinence, unspecified type Kathia Galindo NP Phone: tel: fax: [email or web address] [address] [place] [address] Phone: tel: Referral ID Status Reason Start Date Expiration Date Visits Re quested Visits Authorized [id number] Closed 07/11/2019 07/11/2020 99 [phone] Encounter Details Date Type Department Care Team (Late st Contact Info) Description 07/11/2019 Transcribe Orders [facility] [address] [place] [address] Kathia Galindo NP [address] [place] [address] [email or web address] Urinary incontinence, unspecified type (Primary Dx) Social [...] Date/Time Associated Diagnosis Comments AMB REFERRAL TO [facility] PHYSICAL THERAPY Routine 08/09/2019 12:58 PM EDT Urinary incontinence, unspecified type documented in this encounter Results * Ambulatory referral to [facility] Physical Therapy (08/09/2019 12:58 PM EDT) Kathia Galindo NP AMB [facility] REFERRALS Final Result documented in this encounter Visit Diagnoses Diagnosis Urinary incontinence, unspecified type- Primary documented in this encounter Care Teams Fire Support Man Relationship Specialty Start Date End Date Kalen Osei MD [email or web address] [email or web address] - General Family Medicine 10/18/18 08/14/20 aKlen Osei MD [address] [place] [phone] [email or web address] PCP - General Family Medicine 08/15/20 Kalen Osei MD [address] [place] [address] [email or web address] Insurance Assigned Provider 11/18/18 09/22/19 documented as of this encounter Additional Source Comments The information contained in this document represents components of the legal health record. It is not the complete legal health record.[facility]
--- OUTSIDE RECORDS SUMMARY | 2025-08-15 09:59 | XMS_ITS | Encounter Summary ---
Author Organization [facility] Address [address] [facility] [place] [address] Phone Care Team Providers Care Pasteurizing Supervisor Name Role Phone Kalen Osei MD Primary Care Prov ider Encounter Details Date Type Department Care Team (Late st Contact Info) Description 11/17/2020 Transcribe Orders Virtual Department [address] [place] [address] Kalen Osei MD [address] [place], [place] [id number] [email or web address] Breast screening (Primary Dx) Social History Tobacco Use Types [...] documented as of this encounter Visit Diagnoses Diagnosis Breast screening- Primary Breast screening, unspecified documented in this encounter Care Teams Pasteurizing Supervisor Relationship Specialty Start Date End Date Kalen Osei MD [address] [place] [phone] [email or web address] PCP - General Family Medicine 08/15/20 documented as of this encounter Additional Source Comments The information contained in this document represents components of the legal health record. It is not the complete legal health record.[facility]
--- OUTSIDE RECORDS SUMMARY | 2025-08-15 09:59 | XMS_ITS | Encounter Summary ---
Author Organization [facility] Address [address] [facility] [address] [place] [phone] Phone Care Team Providers Care Salon Receptionist Name Role Phone Kalen Osei MD Primary Care Prov ider Encounter Details Date Type Department Care Team (Late st Contact Info) Description 01/29/2021 Ancillary Orders Virtual Department [address] [place] [phone] Kesha Mendiola MD [address] [place] [phone] [email or web address] Calcification of breast Social History Tobacco Use Types Packs/Day Years [...] on file documented as of this encounter Results * BI MAMMOGRAM DIAGNOSTIC WITH TOMOSYNTHESIS [...] Left short interval follow-up Kesha Mendiola MD IMG MG EXAMS Edited Result - Final documented in this encounter Visit Diagnoses Diagnosis Calcification of breast Calcification of breast documented in this encounter Care Teams Salon Receptionist Relationship Specialty Start Date End Date Kalen Osei MD [address] [place] [phone] [email or web address] PCP - General Family Medicine 08/15/20 documented as of this encounter Additional Source Comments The information contained in this document represents components of the legal health record. It is not the complete legal health record.[facility]
--- OUTSIDE RECORDS SUMMARY | 2025-08-15 09:59 | XMS_ITS | Encounter Summary ---
Author Organization [facility] Address [address] [facility] [address] [place] [phone] Phone Care Team Providers Care Segregator Name Role Phone Kalen Osei MD Primary Care Prov ider Kalen Osei MD Primary Care Prov ider Encounter Details Date Type Department Care Team (Late st Contact Info) Description 08/12/2020 Ancillary Orders Virtual Department [address] [place] [address] Nelda Nunez NP [address] [place] [phone] [email or web address] Abnormal mammogram Social History Tobacco Use Types Packs/Day Years [...] as of this encounter Visit Diagnoses Diagnosis Abnormal mammogram Abnormal mammogram, unspecified documented in this encounter Care Teams Segregator Relationship Specialty Start Date End Date Kalen Osei MD PCP - General Family Medicine 10/18/18 Kalen Osei MD [address] [place] [phone] [email or web address] PCP - General Family Medicine 08/15/20 documented as of this encounter Additional Source Comments The information contained in this document represents components of the legal health record. It is not the complete legal health record.[facility]
--- OUTSIDE RECORDS SUMMARY | 2025-08-15 09:59 | XMS_ITS | Encounter Summary ---
Author Organization [facility] Address [address] [facility] [address] [place] [address] Phone Care Team Providers Care Finnish Rubber Name Role Phone Kalen Osei MD Primary Care Prov ider Encounter Details Date Type Department Care Team (Late st Contact Info) Description 02/05/2021 Ancillary Orders Virtual Department [address] [place] [phone] Kesha Mendiola MD [address] [place] [phone] [email or web address] Abnormal mammogram Social History Tobacco Use Types [...] as of this encounter Results * BI US BREAST LIMITED (LEFT) (02/05/2021 1:13 PM EDT) Anatomical Region Laterality Modality Breast Left, Breast Bilateral Left Ul trasound 02/05/2021 11:2 8 AM EDT Addenda Addendum [...] DATE: 6 Months Left short interval follow-up us Kesha Mendiola MD [facility] [place] [place] US BREAST Edited Result - Final documented in this encounter Visit Diagnoses Diagnosis Abnormal mammogram Abnormal mammogram, unspecified Abnormal mammogram Abnormal mammogram, unspecified documented in this encounter Care Teams Finnish Rubber Relationship Specialty Start Date End Date Kalen Osei MD [address] [place] [phone] [email or web address] PCP - General Family Medicine 08/15/20 documented as of this encounter Additional Source Comments The information contained in this document represents components of the legal health record. It is not the complete legal health record.[facility]
--- OUTSIDE RECORDS SUMMARY | 2025-08-15 09:59 | XMS_ITS | Encounter Summary ---
Author Organization [facility] Address [address] [place] [address] [place] [phone] Phone Care Team Providers Care Auto Phone Installer Name Role Phone Kalen Osei MD Primary Care Prov ider Kalen Osei MD Unavailable + Kalen Osei MD Primary Care Prov ider Encounter Details Date Type Department Care Team (Late st Contact Info) Description 02/20/2019 Procedure Pass [facility], [address] [address] Social History Tobacco Use Types Packs/Day Years [...] on filedocumented in this encounter Care Teams Auto Phone Installer Relationship Specialty Start Date End Date Kalen Osei MD [email or web address] PCP - General Family Medicine 10/18/18 08/14/20 Kalen Osei MD [address] [place] [phone] [email or web address] PCP - General Family Medicine 08/15/20 Kalen Osei MD [address] [place] [address] [email or web address] Insurance Assigned Provider 11/18/18 09/22/19 documented as of this encounter Additional Source Comments The information contained in this document represents components of the legal health record. It is not the complete legal health record.[facility]
--- OUTSIDE RECORDS SUMMARY | 2025-08-15 09:59 | XMS_ITS | Encounter Summary ---
Author Organization [facility] Address [address] [facility] [address] [place] [address] Phone Care Team Providers Care Physician Assistant Certified Name Role Phone Kalen Osei MD Primary Care Prov ider Kalen Osei MD Primary Care Prov ider Encounter Details Date Type Department Care Team (Late st Contact Info) Description 08/13/2020 Ancillary Orders [facility],Outside Imaging [address] [place] [address] System, Provider Not In, [place] [address] Social History Tobacco Use Types Packs/Day Years [...] documented as of this encounter Results * Mammogram Outside (No Interpretation) (08/07/2020 12:00 AM EDT) Narrative SYSTEMGENERATED, DOCUMENTATION - 08/13/2020 1:36 PM EDT This study is for PACS storage only and not for interpretation. us Provider Not In System PhD IMG OUTSIDE IMAGING W /OUT INTERPRETATION Final Result * Mammogram Outside (No Interpretation) (12/04/2019 12:00 AM EST) Narrative SYSTEMGENERATED, DOCUMENTATION - 08/13/2020 1:35 PM EDT This study is for PACS storage only and not for interpretation. us Provider Not In System PhD IMG OUTSIDE IMAGING W /OUT INTERPRETATION Final Result * Mammogram Outside (No Interpretation) (11/26/2019 12:00 AM EST) Narrative SYSTEMGENERATED, DOCUMENTATION - 08/13/2020 1:35 PM EDT This study is for PACS storage only and not for interpretation. us Provider Not In System PhD IMG OUTSIDE IMAGING W /OUT INTERPRETATION Final Result * US Breast Outside (No Interpretation) (11/06/2018 12:10 AM EST) Narrative SYSTEMGENERATED, DOCUMENTATION - 08/13/2020 1:34 PM EDT This study is for PACS storage only and not for interpretation. us Provider Not In System PhD IMG OUTSIDE IMAGING W /OUT INTERPRETATION Final Result * US Breast Outside (No Interpretation) (11/06/2018 12:05 AM EST) Narrative SYSTEMGENERATED, DOCUMENTATION - 08/13/2020 1:34 PM EDT This study is for PACS storage only and not for interpretation. us Provider Not In System PhD IMG OUTSIDE IMAGING W /OUT INTERPRETATION Final Result * Mammogram Outside (No Interpretation) (11/06/2018 12:00 AM EST) Narrative SYSTEMGENERATED, DOCUMENTATION - 08/13/2020 1:33 PM EDT This study is for PACS storage only and not for interpretation. us Provider Not In System PhD IMG OUTSIDE IMAGING W /OUT INTERPRETATION Final Result documented in this encounter Visit Diagnoses Not on filedocumented in this encounter Care Teams Physician Assistant Certified Relationship Specialty Start Date End Date Kalen Osie MD PCP - General Family Medicine 10/18/18 Kalen Osei MD [address] [place] [phone] [email or web address] PCP - General Family Medicine 08/15/20 documented as of this encounter Additional Source Comments The information contained in this document represents components of the legal health record. It is not the complete legal health record.[facility]
--- OUTSIDE RECORDS SUMMARY | 2025-08-15 09:59 | XMS_ITS | Encounter Summary ---
Author Organization [facility] Address [address] [facility] [address] [place] [address] Phone Care Team Providers Care Fixture Designer Name Role Phone Kalen Osei MD Primary Care Prov ider Kalen Osei MD Primary Care Prov ider Encounter Details Date Type Department Care Team (Late st Contact Info) Description 08/12/2020 Transcribe Orders Virtual Department [address] [place] [address] Nelda Nunez, VITALIY [address] [place] [phone] [email or web address] Abnormal mammogram (Primary Dx) Social History Tobacco Use Types [...] of this encounter Results * BI MAMMOGRAM STEREOTACTIC BREAST CORE BIOPSY WITHOUT TOMOSYNTHESIS (LEFT) (08/27/2020 10:37 AM EST) Anatomical Region Laterality Modality Breast Left, Breast Bilateral Left Ma mmography 08/27/2020 11:0 7 AM EST Addenda Addendum by Bala Mittal MD on 09/01/2020 7:07 PM EST ADDENDUM: LEFT BREAST, TISSUE AND CALCIFICATIONS, STEREOTACTIC BIOPSY: Benign breast tissue. Calcifications are not seen (see pathology note) After discussing with Dr. Son microcalcifications could have been present in the specimen but obscured. Given remaining microcalcifications on mammography after the stereotactic breast biopsy A SIX-MONTH FOLLOW-UP LEFT MAMMOGRAM IS RECOMMENDED. Impressions 08/27/2020 11:21 AM EST Seemingly successful stereotactic biopsy of group of microcalcifications in the outer left breast. Biopsy marker located approximately 3 cm medial and slightly inferior to remaining tiny group of microcalcifications. Pathology results pending. Narrative 08/27/2020 11:21 AM EST Prior to the procedure left mammograms from 11/26/2019, 12/04/2019 and 08/07/2020 were reviewed. Initially, the risks, benefits and alternatives were explained to the patient. She agreed to proceed. An informed consent was obtained and placed in the chart. Using stereotactic guidance, a site for biopsy of the cluster of microcalcifications in the outer left breast was chosen. The site was aseptically prepared and anesthetized. Subsequently, a 9 gauge biopsy needle attached to a vacuum- assisted device was introduced into the breast. The patient did move during prefire and post-fire images. Pre-fire and post-fire digital images didn't seem to demonstrate that the needle was in adequate position. The patient did move during sampling sampling. A specimen radiograph demonstrated microcalcifications within multiple samples. A tiny group of microcalcifications remained within the breast. A biopsy marker was then placed. Biopsy marker is located approximately 3 cm medial and slightly inferior to the remaining tiny group of microcalcifications. Follow-up CC and 90 degree ML mammograms obtained demonstrate the biopsy marker to be at the biopsy site in adequate position. Specimens obtained were placed in the jar which was labeled with the patient's information and sent to the lab for analysis. The patient tolerated the procedure well and had no immediate complications. Discharge instructions were discussed with her. She was given a set of discharge instructions to take home. The patient left the mammography suite in stable condition. us Nelda Nunez DISTRICT BRANCH MANAGER IMG BI IRP GUIDED [facility] Result - Final documented in this encounter Visit Diagnoses Diagnosis Abnormal mammogram- Primary Abnormal mammogram, unspecified Abnormal mammogram Abnormal mammogram, unspecified documented in this encounter Care Teams Fixture Designer Relationship Specialty Start Date End Date Kalen Osei MD [email or web address] PCP - General Family Medicine 10/18/18 Kalen Osei MD [address] [place] [phone] [email or web address] PCP - General Family Medicine 08/15/20 documented as of this encounter Additional Source Comments The information contained in this document represents components of the legal health record. It is not the complete legal health record.[facility]
--- OUTSIDE RECORDS SUMMARY | 2025-08-15 09:59 | XMS_ITS | Clinical Summary ---
Author Organization [address] [facility] Address [address] [place] [address] Phone Care Team Providers Care Team Assembler Name Role Phone Nidhi Osei MD Primary [...] 8:30 AM EDT Nutrition Bariatric Surgery - [address] [phone] Kesha Orozco, NIRANAJN Class 1 obesity with serious comorbidity and [...] Visit Bariatric Surgery [facility] [address] [phone] Leeann Higgins MD [address] [place] [phone] 10/16/2025 8:30 AM EST Nutrition Bariatric Surgery - [place] [address] [phone] Kesha Orozco, RD [address] [phone] Health Maintenance Due Date Last [...] Relevant to Health Maintenance Insurance [address] [place] [address] [facility] MEDICARE Member Subscriber Plan / Payer (Ef fective 2020-Present) Name:[place] Michael Rojas Relation to Subscriber:Self Name:Gordo Sladeshashi Payer ID:[id number] Group ID:[id number] Type:Not on file Address: [place] [address] [address] [phone] Care Teams Team Assembler Relationship Specialty Start Date End Date Nidhi Osei MD [address] [place] [address] PCP - General Internal Medicine 12/16/21
--- OUTSIDE RECORDS SUMMARY | 2025-08-15 09:59 | XMS_ITS | Encounter Summary ---
Author Organization [facility] Address [address] [facility] [address] [place] [phone] Phone Care Team Providers Care Aboriginal Community Council Member Name Role Phone Kalen Osei MD Primary Care Prov ider Encounter Details Date Type Department Care Team (Late st Contact Info) Description 01/29/2021 Procedure Pass [facility], [address] [address] Social History Tobacco Use Types Packs/Day Years [...] on filedocumented in this encounter Care Teams Aboriginal Community Council Member Relationship Specialty Start Date End Date Kalen Osei MD [address] [place] [phone] PCP - General Family Medicine 08/15/20 documented as of this encounter Additional Source Comments The information contained in this document represents components of the legal health record. It is not the complete legal health record.[facility]
== END 2025-08-14 08:57 | disposition home or self-care (01) ==
LOC: HO.HOSX 08:56
PROVIDERS: Visit Provider Physician Assistant
DX: M25.562 Pain in left knee (principal); Z96.652 Presence of left artificial knee joint
CPT/HCPCS: 73562; 99212

== ENCOUNTER 2025-08-14 08:57 | Outpatient (AMB) | payer OTHER, SELFPAY ==
--- NOTE | 2025-08-14 09:07 | A.OFFVIS_ITS ---
Vital Signs 08/14/25 09:08 Height 5 ft 1 in Weight 162 lb BMI 30.6 Intake Visit Reasons: OV- LT TKA 08/14/24 NE w/ x-rays Intake Note: Tootie is a 64 year old female who presents today for a follow up status post LT TKA, performed by Dr. Kahn on 08/14/24. At her last she was to continue her at home exercises and follow up in 3 months with x-rays. Today patient reports lately she has been having intermittent burning sensation at the anterior aspect of knee. She also complains of ongoing pain in her right knee. Stating her pain travels up and down her leg. She noticed a small lump located at the medial side of knee as well as bruising. She denies injury. Allergies adhesive Adverse Reaction (Severe, Verified 08/14/25 09:16) Rash/broken skin at site HPI HPI OV- LT TKA 08/14/24 NE w/ x-rays: Details: 64-year-old female returns to the office today for her annual left total knee arthroplasty from 08/14/[address] Kahn. She states the left knee is doing well she has occasional numbness over the incision but otherwise she has no pain and is able to perform activities. What is complicating her ability to perform activities as the right knee as she is in need of a knee replacement but currently helping to take care of her mother. [facility] Medical History (Updated 11/01/24 @ 10:50 by Kelvin Decker PA-C) Type 2 diabetes mellitus Renal cyst Osteoarthritis Depression GERD (gastroesophageal reflux disease) Lumbar radiculopathy Barretts esophagus Surgical History Status post total left knee replacement (08/07/24) H/O breast biopsy Hx of section Hx of repair of right rotator cuff History of esophagogastroduodenoscopy (EGD) H/O colonoscopy Hx of gastric bypass Social History Household Members: None Housing: Apartment Are you a primary career technical education teacher to a significant other at home: No Do you presently have visiting nurse or other home services: No Alcohol intake: never Patient Tobacco Use Status: Never used Tobacco service: No Current occupational status: unemployed Review of Systems Const All systems reviewed & are unremarkable except as noted in HPI and below Physical Exam Vital Signs: BMI result Body Mass Index 30.6 Extrem Other: Left knee surgical scar is well healed. She has full range of motion and good activation of the quad. No ligamentous laxity. Calf is supple and nontender neurovascularly intact. Results Reviewed Results Reviewed: X-rays of the left knee obtained in the office today and reviewed by me show intact prosthesis without signs of loosening. Right knee is severely arthritic with varus deformity. Assessment & Plan Assessment & Plan (1) Status post total knee replacement, left: Code(s): Z96.652 - Presence of left artificial knee joint Category: Surgical Plan: Patient will continue with daily activities as tolerated. We had a lengthy discussion about her right knee and went to proceed as far as her care goes with her mother that is her priority and she will contact us when she is ready to proceed. Otherwise she will contact us if there is concerns and follow up in 1 year for her annual total knee appointment. Orders: Orders XR knee LT 3V Today M25.562 - Pain in left knee Coding Level of Care Code Est Pt Level 3 (36814) Complex EM visit Add On G2211 Diagnoses Status post total knee replacement, left Z96.652
[2025-08-14 09:08] VITALS: BMI 30.6
--- OUTSIDE RECORDS SUMMARY | 2025-08-14 09:59 | XMS_ITS | Encounter Summary ---
Author Organization [employer] [facility] Address [address] [facility] [address] [place] [address] Care Team Providers Care Telephone Lineman Name Role Phone Unavailable Primary Care Provider Unavailabl e Encounter Details Date Type Department Care Team (Latest Contact Info) Description 06/10/2022 Abstract [facility] CONVERSIONS Dental, Provider, DDS Social History Tobacco Use Types Packs/Day Years Used Date Smoking Tobacco: Never Assessed Comments Unknown Sex and Gender Information Value Date Recorded Sex Assigned at Female 08/16/2022 10:34 AM EDT Legal Sex Female 10:34 AM EDT Gender Identity Female 08/16/2022 10:34 AM EDT Sexual Orientation Straight 08/16/2022 10 :34 AM EDT documented as of this encounter Plan of Treatment Upcoming Encounters Date Type Department Care Team (Late st Contact Info) Description 08/26/2025 1:30 PM EST Office Visit [facility] ADULT DENTAL [address] [place] [address] Marilu Leong documented as of this encounter Visit Diagnoses Not on filedocumented in this encounter
--- OUTSIDE RECORDS SUMMARY | 2025-08-14 09:59 | XMS_ITS | Clinical Summary ---
Author Organization 175 [facility] Address [address] [place] [address] Phone Care Team Providers Care Administrative Law Judge Name Role Phone Nidhi Osei MD Primary [...] Amount: 15 mg 30 each 04/09/20 25 Active buPROPion XL (WELLBUTRIN XL) 150 mg 24 hr tabletIndications: Class 1 obesity due to excess calories with body mass index (BMI) of 32.0 to 32.9 in adult, unspecified whether serious comorbidity present TAKE 1 TABLET (150 MG TOTAL) BY MOUTH EVERY DAY DO NOT CRUSH,CHEW, OR SPLIT 90 tablet 1 05/09/20 25 Active naltrexone (DEPADE) 50 mg tabletIndications: Class 1 obesity due to excess calories with body mass index (BMI) of 32.0 to 32.9 in adult, unspecified whether serious comorbidity present TAKE 1/2 TABLET (25 MG TOTAL) BY MOUTH DAILY 15 tablet 2 05/14/20 25 Active Active Problems Problem Noted Date Diagnosed Date Class 1 obesity with serious comorbidity and body mass index (BMI) of 31.0 to 31.9 in adult 07/19/2024 Prediabetes 06/06/2019 Encounters Date Type Department Care Team Description 07/11/2025 8:30 AM EDT Nutrition Bariatric Surgery - [address] [address] Kesha Orozco, NIRANJAN Class 1 obesity with serious comorbidity and body mass index (BMI) of 31.0 to 31.9 in adult, unspecified obesity type (Primary Dx) from Last 3 Months Social History Tobacco [...] - Inhaled Oxygen Concentration - - Weight 76.7 kg (169 lb) 07/11/2025 8:32 AM EDT Height 154.9 cm (5' 1 ) 04/09/2025 9:04 AM EDT Body Mass Index 31.93 04/09/2025 9:04 AM EDT Plan of Treatment Upcoming Encounters Date Type Department Care Team (Late st Contact Info) Description 08/20/2025 9:00 AM EST Office Visit Bariatric Surgery [facility] [address] [address] Leeann Higgins MD [address] [place] [address] 10/16/2025 8:30 AM EST Nutrition Bariatric Surgery - [place] [address] [address] Kesha Orozco, RD [address] [address] Health Maintenance Due Date Last Done Comments Colorectal Cancer Screening: Colonoscopy 1959 Cervical Cancer Screening: Pap Smear 1980 Hepatitis C Screening 09/25/2022 Medicare Annual Wellness Visit 09/25/2022 Osteoporosis Screening (Bone Density Screening) 09/25/2022 Social Influencers of Health Screening 09/25/2022 Breast Cancer Screening 02/05/2023 02/05/2021, 02/05 Falls Risk Assessment 2024 Depression Screening 10/17/2024 COVID-19 Vaccine ( season) 2025 06/26/2024, 08/11/2023, 06/30/2022, Additional history exists Cholesterol Screening (Lipid Panel) 05/11/2027 05/11/2022 DTaP,Tdap,and Td Vaccines (3 - Td or Tdap) 09/29/2030 09/29/2020, 08/23/2012 Zoster Vaccines Completed 06/20/2021, 03/18, 08/23/2012 Pneumococcal Vaccine: 50+ Years Completed 04/06/2023 RSV Immunization Adult Patients Completed 06/07/2023 Influenza Vaccine Completed 06/18/2025, , 05/23/2023, Additional history exists HIB Vaccines Aged Out No longer eligi [...] Procedure Name Priority Date/Time Associated Diagnosis Comments LIPID PANEL Routine 05/11/2022 from Last 3 Months or Most Recently Relevant to Health Maintenance Results * (ABNORMAL) Lipid panel (05/11/2022) LDL/HDL Ratio 4 0 - 4 Triglycerides 77 0 - 150 mg/dL Cholesterol 216(A) 0 - 200 mg/dL HDL 57 >=40 mg/dL LDL Cholesterol 144(A) 0 - 100 mg/dL Blood Venous blood specimen / Unknown Historical Provider LAB BLOOD ORDERABLES Jennifer l Result from Last 3 Months or Most Recently Relevant to Health Maintenance Insurance [id number] [place] [address] [facility] MEDICARE Member Subscriber Plan / Payer (Ef fective 2020-Present) Name:[place] Michael Rojas Relation to Subscriber:Self Name:Gordo Sladeshashi Payer ID:[id number] Group ID:[id number] Type:Not on file Address: [place] [address] [address] [address] Care Teams Administrative Law Judge Relationship Specialty Start Date End Date Nidhi Osei MD [address] [place] [address] PCP - General Internal Medicine 12/16/21
--- OUTSIDE RECORDS SUMMARY | 2025-08-14 09:59 | XMS_ITS | Encounter Summary ---
Author Organization [employer] [facility] Address [address] [facility] 7t [place] [address] Care Team Providers Care Onsite Case Manager Name Role Phone Unavailable Primary Care Provider Unavailabl e Encounter Details Date Type Department Care Team (Latest Contact Info) Description 03/02/2021 Abstract [facility] CONVERSIONS Dental, Provider, DDS Social History [...] Description 08/26/2025 1:30 PM EST Office Visit [facility] ADULT DENTAL [address] [place] [address] Marilu Leong documented as of this encounter Visit Diagnoses Not on filedocumented in this encounter
--- OUTSIDE RECORDS SUMMARY | 2025-08-14 09:59 | XMS_ITS | Clinical Summary ---
Author Organization [facility] Address [address] [place] [address] Care Team Providers Care Forensic Materials Engineer Name Role Phone Unavailable Primary Care Provider Unavailabl e Allergies Active Allergy Reactions Criticality Noted Date Comments Latex 05/01/2024 Medications famotidine (Pepcid) 40 MG tablet Take 40 mg by mouth in the evening. 3 Active gabapentin (Neurontin) 100 MG capsule Refills 0, Maintenance, 07/18/23 11:38:00 EDT, Partial fill upon patient request if the prescription is for a schedule II opioid drug. 3 Active hydrOXYzine HCl (Atarax) 25 MG tablet TAKE 1 TABLET BY MOUTH THREE TIMES A DAY NEEDED FOR ANXIETY/SLEEP 3 Active latanoprost (Xalatan) 0.005 % ophthalmic solution Administer 1 drop into both eyes at bedtime. 3 Active lisinopril 5 MG tablet Take 5 mg by mouth. 3 Active pantoprazole (ProtoNix) 40 MG EC tablet Take 40 mg by mouth in the morning. 3 Active sertraline (Zoloft) 50 MG tablet TAKE 1 AND 1/2 TABLET BY MOUTH EVERY DAY 3 Active ferrous sulfate 325 (65 Fe) MG EC tablet Take 325 mg by mouth with breakfast, with lunch, and with evening meal. Do not crush, chew, or split. Active amoxicillin (Amoxil) 500 MG capsule Take 4 caps 1 hour prior dental procedure 12 capsule 5 Active Active Problems Problem Noted Date Diagnosed Date Dental plaque 10/03/2023 Missing teeth, acquired 10/03/2023 Gingival bleeding 10/03/2023 Social History Tobacco Use Types Packs/Day Years Used Date Smoking Tobacco: Never Passive Smoke Exposure: Never Smokeless Tobacco: Never Tobacco Cessation:Counseling Given: Not Answered Comments Unknown Sex and Gender Information Value Date Recorded Sex Assigned at Female 08/16/2022 10:34 AM EDT Legal Sex Female 10:34 AM EDT Gender Identity Female 08/16/2022 10:34 AM EDT Sexual Orientation Straight 08/16/2022 10 :34 AM EDT Last Filed Vital Signs Vital Sign Reading Time Taken Comments Blood Pressure 106/58 05/01/2024 2:49 PM EDT Pulse 65 05/01/2024 2:49 PM EDT Temperature - - Respiratory Rate - - Oxygen Saturation - - Inhaled Oxygen Concentration - - Weight - - Height - - Body Mass Index - - Plan of Treatment Upcoming Encounters Date Type Department Care Team (Late st Contact Info) Description 08/26/2025 1:30 PM EST Office Visit [facility]ULT [facility] [address] [place] [address] Marilu Leong Health Maintenance Due Date Last Done Comments CT Colonography 1959 Colonoscopy 1959 Colorectal Cancer Screening 1959 Depression Screening 1959 FIT DNA/Cologuard 1959 FIT 1959 FOBT 1959 Lipid Panel 1959 SDOH Screening 1959 Sigmoidoscopy 1959 Alcohol/Substance Use Screening 1971 Hepatitis C Screening 1977 Pap Smear 1980 Cervical Cancer Screening 1989 HPV/Cotest 1989 Mammogram 02/05/2023 02/05/2021, 01/16, 02/05/2021 Dental Oral Exam 04/04/2024 10/03/2023, , 02/17/2021, Additional history exists Dental X-Ray: Bitewings 10/04/2024 10/03/20 23, 07/14/2022, 06/10/2022, Additional history exists Dental Prophylaxis 11/02/2024 05/01/2024, 1 12/04/2022, 06/10/2022, Additional history exists COVID-19 Vaccine ( season) 2025 06/26/2024, 08/11/2023, 06/30/2022, Additional history exists Tobacco Screening 01/21/2026 01/21/2025 Dental X-Ray: Full Mouth 10/04/2026 10/03/2023, 02/14 DTaP/Tdap/Td Vaccines (3 - Td or Tdap) 09/29/2030 09/29/2020, 08/23/2012 Zoster Vaccines Completed 06/20/2021, 03/18, 08/23/2012 Pneumococcal Vaccine: 50+ Years Completed 04/06/2023 RSV Patients and Patients Aged 60 years or older Completed 06/07/2023 Influenza Vaccine Completed 06/18/2025, , [...] patient's age to complete this topic Meningococcal Vaccine Aged Out No shruthi lalito eligible based on patient's age to complete this topic RSV under 20 months Aged Out No longe r eligible based on patient's age to complete this topic Rotavirus Vaccines Aged Out No longer eligible based on patient's age to complete this topic Procedures Procedure Name Priority Date/Time Associated Diagnosis Comments PROPHYLAXIS - ADULT Routine 05/01/2024 3 :00 PM EDT INTRAORAL - COMPLETE SERIES OF RADIOGRAPHIC IMAGES Routine 10/03/2023 1:00 PM EST PERIODIC ORAL EVALUATION - ESTABLISHED PATIENT Routine 10/03/2023 1:00 PM EST from Last 3 Months or Most Recently Relevant to Health Maintenance Insurance DENTAL - [facility] [address] [place] [id number] [place] [address] [place] [address] [place] [id number]
--- OUTSIDE RECORDS SUMMARY | 2025-08-14 09:59 | XMS_ITS | Encounter Summary ---
Author Organization [facility] Address [address] [place] [address] Care Team Providers Care Associate Product Manager Name Role Phone Unavailable Primary Care Provider Unavailabl e Encounter Details Date Type Department Care Team (Latest Contact Info) Description 09/03/2019 Abstract [facility] CONVERSIONS Dental, Provider, DDS Social History [...] Description 08/26/2025 1:30 PM EST Office Visit [facility] ADULT DENTAL [address] [place] [address] Marilu Leong documented as of this encounter Visit Diagnoses Not on filedocumented in this encounter
== END 2025-08-14 09:46 | disposition home or self-care (01) ==
LOC: HO.HOS 08:58
PROVIDERS: Visit Provider Physician Assistant
DX: Z47.89 Encounter for other orthopedic aftercare (principal); Z96.652 Presence of left artificial knee joint
CPT/HCPCS: 99213; G2211

== ENCOUNTER → 2025-08-14 09:05 | Outpatient (BNV) | payer OTHER, SELFPAY | PROVIDERS: Visit Provider Radiology Diagnostic Radiology | DX: M25.562 Pain in left knee (principal); Z96.652 Presence of left artificial knee joint | CPT/HCPCS: 73562 ==